=== PATIENT | female | born 1955 | race Caucasian/White ===

== ENCOUNTER 2016-10-08 08:03 | Inpatient (IN) ==
[2016-10-08] MEDS ORDERED: *HR* Midazolam HCl 2 MG/2 ML VIAL ONE (08:12)
[2016-10-08] MEDS ORDERED: *HR* FentaNYL (PF) 100 MCG/2 ML VIAL ONE (08:12)
[2016-10-08] MEDS ORDERED: *HR* Propofol 200 MG/20 ML VIAL IVP ONE (08:13)
[2016-10-08] MEDS ORDERED: Ondansetron 4 MG/2 ML VIAL ONE (08:27)
[2016-10-08] MEDS ORDERED: Dexamethasone 4 MG/ML VIAL ONE (08:27)
[2016-10-08] MEDS ORDERED: Lidocaine -MPF 2% 2 ML VIAL ONE (08:27)
--- NOTE | 2016-10-08 08:32 | Anesthesia Evaluation PreOp ---
Date of Encounter: 10/08/16 Time of Encounter: 08:30 - Past History Planned Operation: Sacralcolpopexy Cardiac History: HTN Pulmonary History: Former smoker (quit 34 years ago, smoked for 15 years) [employer] History: Denies Any Significant HX Other Medical History: GERD, Other (H/O ovarian CA S/P chemo) Anesthesia History: No Prior Anesthetic Complications, Past Anesthesia ( hysterectomy) Alcohol Use: occasionally Drug use: none Medications and Allergies Furosemide [Lasix] 40 mg PO DAILY 06/26/16 [History] Ibuprofen [Advil] 200 mg PO Q4-6H PRN 06/26/16 [History] Potassium Gluconate 75 mg PO DAILY 06/26/16 [History] Allergies codeine Allergy (Verified 07/20/16 07:19) Hives patient states reaction was in 1983 - Meds/Allergy Pre-op Review Medications Reviewed: Yes Allergies Reviewed: Yes Beta Blockers on Current Med List: No Anesthesia Results - Labs Laboratory Tests 07/10/16 10/01/16 10/01/16 08:26 08:09 08:09 WBC 6.5 Hgb 14.0 Hct 40.9 Plt Count 247 Sodium 139 Potassium 4.0 BUN 12 Creatinine 0.77 - Imaging EKG: report reviewed (06/15/2016 SR, IVCD, LAFB) Anesthesia Exam O2 Sat Height 1.6 m Height 1.6 m Weight 86.183 kg Weight 86.183 kg O2 Sat by Pulse Oximetry 98 Vital Signs Temp Pulse Resp BP Pulse Ox 97.6 F 75 18 122/71 98 10/08/16 08:27 10/08/16 08:27 10/08/16 08:27 10/08/16 08:27 10/08/16 08:27 Height: 5'3'' Weight: 190 lbs NPO (# of Hours): 8 Pain Scale: 0 Pain Scale Used: Numeric (1 - 10) - HEENT Pupil (Motor): EOMI Mallampati: II Teeth: Normal Denture Type: Upper: Partial Oral Opening: Greater than 3 - [employer] LOC: Oriented [employer] Motor: Normal RUE, Normal LUE, Normal RLE, Normal LLE, Normal Face [employer] Sensory: Normal: RUE, LUE, RLE, LLE, Face - Cardiac Rhythm: Regular Murmur: None - Pulmonary Breath Sounds: bilateral Clear Respiratory Effort: Symmetrical Anesthesia Assess/Plan ASA Score: 2 Modified [place] Scale for Level of Consciousness: Cooperative, oriented, and tranquil Anesthetic Plan: General Monitoring Plan: Standard Monitors Recovery Plan: PACU
[2016-10-08] MEDS ORDERED: Scopolamine Patch 1.5 MG PATCH.TD72 TD ONE (08:52)
[2016-10-08] MEDS ORDERED: Ringers Solution, Lactated 1,000 ML IVC SCH (09:00)
[2016-10-08] MEDS ORDERED: CeFAZolin Pre 2,000 MG/100 ML 2,000 MG/100 ML BAG IVPB ONE (09:07)
--- NOTE | 2016-10-08 09:14 | History & Physical Report ---
Date of Encounter: 10/08/16 Time of Encounter: 09:13 24 Hour HP Update - Instructions Instructions: If the History and Physical is less than 30 days old and was completed prior to A.M. admission and or procedure and has NOT been updated on calendar day of procedure please complete this update prior to performing procedure. - Update Patient reports changes in Medical Condition: No Changes in assessment/condition: No Changes in Medication: No Preop tests/diagnostics Reviewed: Yes Surgery Remains Indicated: Yes Consent for Planned Operative Procedure(s) Verified: Yes - Pre-Operative Checklist Preoperative Checklist Indicated: Yes Prophylactic Antibiotic Ordered: Yes Home Medications Include Beta Erick: No Beta Erick Taken Today (Day of Surgery): No Beta Erick Taken Yesterday (Day Prior to Surgery): No Is VTE Prophylaxis Indicated?: Yes
[2016-10-08] MEDS ORDERED: Lidocaine/EPI 1:100k 1% 20 ML VIAL ONE ×2 (09:34→12:41)
[2016-10-08] MEDS ORDERED: Bupivacaine/EPI 1:200k 0.25%PF 30 ML VIAL ONE (09:34)
[2016-10-08] MEDS ORDERED: *HR* Phenylephrine 10 MG/ML VIAL ONE (11:06)
[2016-10-08] MEDS ORDERED: Ondansetron 4 MG/2 ML VIAL IVP ONE (11:28)
[2016-10-08] MEDS ORDERED: *HR* Morphine 2 MG/ML SYRINGE IVP PRN (11:28)
[2016-10-08] MEDS ORDERED: *HR* HYDROmorphone 2 MG/ML SYRINGE ONE (11:36)
--- NOTE | 2016-10-08 14:50 | Anesthesia Evaluation Post Op ---
Date of Encounter: 10/08/16 Time of Encounter: 14:29 - Vital Signs Vital Signs: vss - Lungs Lungs: Clear Ascult./Percussion - Airway Airway: Non-obstructed - Cardiovascular Regular Rate - Mental Status Mental Status: Asleep with brisk response to light stimulation - Pain Pain Scale used: Jess (Faces) - Nausea Vomiting Nausea Vomiting: Not Present - Hydration Hydration: Ice chips - Discharge PostOp Status: Transfer Patient to floor
--- NOTE | 2016-10-08 15:46 | OB/GYN Procedure Note ---
[employer]PER[employer]: Procedure - Diagnosis Date of procedure: 10/08/16 Pre-op diagnosis: Pelvic prolapse, stress urinary incontinence Post-op diagnosis: other (Dense intra-abdominal adhesions) - Procedure Procedure: Tension-free vaginal taping, anterior repair, laparotomy with lysis of adhe Surgeon: Michael Negron (Dr. Mcclendon was intraoperative consult Dr. Hopkins) Manager Of Software: Kim Bentley Anesthesia Type: General Estimated blood loss (cc): 100 Fluids: crystalloid Procedure Complications: Dense pelvic and he adhesions Disposition: PACU Findings: Dense pelvic adhesions obliterating the posterior cul-de-sac Narrative: Patient is a 61-year-old female with progressively worsening pelvic prolapse. She has pressure symptoms as well as stress urinary incontinence. I discussed with patient DECISION was made to proceed with TVT and laparotomy with planned sacrocolpopexy. Patient is aware operative risks and some appropriate consent. Description procedure: Patient was taken operating room where general anesthesia was mentioned she was prepped and draped in a sterile fashion in the dorsal lithotomy position. 30 mL of dilute local was injected behind the symphysis pubis and left and right side 30 mL of local was injected along the anterior vaginal wall below the mucosa from the mid urethral portion of the anterior vaginal wall to the symphysis pubis. A small incision was made in the mid urethral portion anterior vaginal wall. Form obtained in the vagina this was in the patient's bladder towards her left side with the catheter guide helping to displace the bladder the TVT needle was placed through the suburethral incision along the anterior vaginal wall and very near the symphysis pubis and out through the right lower abdominal incision. Patient's bladder was then displaced to the other side and again the TVT needle was passed through the suburethral incision along the anterior vaginal wall and out through the lower abdominal incision and the left. Catheter was removed and cystoscopy was performed. There is no evidence of bladder trauma with strong ureteral jets bilaterally. A Pfannenstiel skin incision was made and this was sharply taken down to the fascia. Fascial incision was sized to midline and extended bilaterally. Once entering the fascia was delivered into the peritoneum. There were dense adhesions involving bowel and anterior abdominal wall as well as between omentum and bowel and the vaginal cuff. At the time the TVT needle was placed and was questionable stool. Dense adhesions of the septum very difficult, but dissection therefore consulted Dr. Hopkins who helped with adhesion lysis. Initially we were able to visualize the pelvis and feel where the TVT needles had passed. Vital to dissect along the path of the entire right-sided TVT needle is entered into the abdomen and there was no evidence of bowel trauma. The left TVT needle seemed to stay extra peritoneal and again there is no evidence of bowel trauma. I did decide that I was not going to be able to dissect safely down to the sacrum or get any significant dissection anterior posterior vagina therefore decision was made not to proceed with the sacrocolpopexy. I did speak with the patient's family and they agreed that patient would desire made to proceed with anterior and possible posterior repair if needed. This point the fascia was closed with a looped PDS and skin edges reapproximated with lamont. It was a third-degree cystocele minimal rectocele. Immediate inverted T-shaped incision on the anterior vaginal wall and injected the vaginal mucosa with 1% lidocaine with epinephrine. I dissected out the vesicovaginal fascia on each side. Using 2-0 Vicryl were put several interrupted sutures on the anterior vaginal wall closing the fascia back together. Excised excess vaginal mucosa. Skin edges were approximated with 3-0 Vicryl. Did not fit the TVT mesh down around a 9 Hegar dilator and the sheath was removed and the incisions were closed. Splints cystoscopy was again performed with again no evidence of bladder trauma and strong ureteral jets bilaterally. This point all sponge needle and instrument counts are correct patient was taken recovery in good condition.
[2016-10-08] MEDS ORDERED: Naloxone 0.4 MG/ML INJ IVP PRN (15:59)
[2016-10-08] MEDS: *HR* HYDROmorphone 2 MG/ML SYRINGE IVP PRN ×2 (16:15→20:00)
[2016-10-08] MEDS: Ringers Solution, Lactated 1,000 ML IVC SCH (20:03)
[2016-10-08] MEDS ORDERED: Furosemide 40 MG TABLET PO SCH (21:00)
[2016-10-09] MEDS: *HR* HYDROmorphone 2 MG/ML SYRINGE IVP PRN ×5 (00:17→19:53)
[2016-10-09] MEDS: Ringers Solution, Lactated 1,000 ML IVC SCH ×3 (05:14→21:31)
[2016-10-09] MEDS ORDERED: Ondansetron 4 MG/2 ML VIAL IVP ONE (05:50)
[2016-10-09] MEDS ORDERED: Ondansetron 4 MG/2 ML VIAL ONE ×2 (05:52→15:25)
[2016-10-09 06:52] LABS: Hematocrit 40.6 % (35.3-44.9); Hemoglobin 13.5 g/dL (11.5-15.4); Mean Corpuscular HGB Conc 33.3 g/dL (31.6-35.5); Mean Corpuscular Hemoglobin 32.8 pg (28.0-33.3); Mean Corpuscular Volume 98.5 fL (83.0-100.0); Mean Platelet Volume 9.6 fL (9.4-12.4); Platelet Count 237 K/mcL (140-400); Red Blood Count 4.12 M/mcL (3.82-4.97)
[2016-10-09 07:51] LABS: Lymphocytes # 1.6 K/mcL (0.6-4.6)
[2016-10-09 07:53] LABS: Platelet Estimate Normal (Normal); Reactive Lymphocytes Present (Not Present)
[2016-10-09] MEDS ORDERED: POTASSIUM GLUCONATE PO SCH (09:00)
--- NOTE | 2016-10-09 13:13 | OB/GYN Progress Note ---
Date of Encounter: 10/09/16 Time of Encounter: 13:11 - Assessment and Plan (1) Pelvic prolapse Current Visit: Yes Status: Acute Pt POD #1 s/p exp lap with DARLENE, ant repair and TVT. Pt overall doing ok, however she does have some nausea and no flatus. + BM. Pt also with low grade temp. Will cont. post op care. Qualifiers: Prolapse type: other female genital prolapse Qualified Code(s): N81.89 - Other female genital prolapse; N81.8 - Other female genital prolapse Subjective - Subjective Principal diagnosis: s/p exp lap., with DARLENE, ant repair and TVT Interval history: Pt c/o nausea and not much appetite. She c/o low abdominal pain. No fever or chills. Hasn't ambulated much yet. Objective - Vital Signs Vital Signs: Vital Signs Temp Pulse Resp BP Pulse Ox 10/09/16 12:00 18 10/09/16 11:54 100.3 F H 96 18 118/72 92 L 10/09/16 04:00 98.4 F 85 22 118/62 91 L 10/08/16 23:45 100.1 F H 88 20 124/75 94 L 10/08/16 20:00 98.2 F 89 20 125/73 94 L 10/08/16 18:15 99.1 F 85 16 113/63 10/08/16 17:15 98.2 F 84 16 115/65 98 10/08/16 16:15 97.8 F 84 16 130/74 98 10/08/16 15:45 97.5 F L 81 16 129/70 98 10/08/16 15:15 97.6 F 81 14 139/79 98 10/08/16 14:48 99.8 F H 80 16 155/94 97 10/08/16 14:38 99.8 F H 79 16 157/80 96 10/08/16 14:28 83 14 164/87 96 10/08/16 14:18 89 16 169/88 98 10/08/16 14:08 97.0 F L 86 20 151/92 97 Intake and Output 10/08/16 10/09/16 10/09/16 23:59 07:59 15:59 Intake Total 950 / 950 120 / 120 Output Total 475 / 475 250 / 250 Balance -475 / -475 700 / 700 120 / 120 Intake: IV Fluids 950 / 950 Lactated Ringers 1,000 ML 950 / 950 @ 125 mls/hr IVC .Q8H [facility] Rx#:[id number] Oral 120 / 120 Output: Urine 250 / 250 Urethral (Lay) 250 / 250 Catheter 475 / 475 Other: Weight 86 kg Patient Weight 10/09/16 23:59 Weight 86 kg - Exam Auscultation: bilateral: normal Abdomen: Present: soft, other (No rebound or guarding) - Labs Labs: Abnormal lab results WBC 13.6 K/mcL (4.3-11.1) H 10/09/16 06:36 Neutrophils # 12.0 K/mcL (1.6-8.9) H 10/09/16 06:36 Reactive Lymphocytes Present (Not Present) A 10/09/16 06:36
[2016-10-09] MEDS ORDERED: Furosemide 40 MG TABLET PO SCH (14:00)
[2016-10-09] MEDS ORDERED: Furosemide 20 MG TABLET PO SCH (14:45)
[2016-10-09] MEDS: Ondansetron 4 MG/2 ML VIAL IVP PRN (15:37)
[2016-10-09] MEDS ORDERED: Furosemide 20 MG/2 ML VIAL IVP ONE ×2 (20:01→21:08)
--- NOTE | 2016-10-09 20:46 | OB/GYN Progress Note ---
Date of Encounter: 10/09/16 Time of Encounter: 20:43 - Assessment and Plan (1) Pelvic prolapse Current Visit: Yes Status: Acute Pt POD #1 s/p exp lap with DARLENE, ant repair and TVT. Pt overall doing ok, however she does have some nausea and no flatus. + BM. Pt also with low grade temp. Will cont. post op care. Concerned over pt's continued abdominal pain. She has continued low grade temp and isn't really progressing very well. Will check stat CT of abd and pelvis to r/o bowel perforation as her surgery was quite involved with extnesive DARLENE. Will order stat CBC and Chem 7. Qualifiers: Prolapse type: other female genital prolapse Qualified Code(s): N81.89 - Other female genital prolapse; N81.8 - Other female genital prolapse (2) Postoperative tachycardia and tachypnea Current Visit: Yes Status: Acute Pt typically takes lasix 40 mg daily. She has not taken her po lasix today b/c of nausea. Will check cxr. Her lungs are clear. May need IV Lasix Subjective - Subjective Principal diagnosis: s/p ant repair and TVT, exploratory laparotomy with extensive DARLENE Interval history: Called to see pt for persistent abdominal pain and nausea. She is also having worsening tachypnea and hypoxia. Her o2 sat was 78% on room air. Her UOP has only been 300 cc. Objective - Vital Signs Vital Signs: Vital Signs Temp Pulse Pulse Resp BP Pulse Ox 10/09/16 20:15 99 F 106 26 91 L 10/09/16 20:00 99 F 108 28 132/71 84 L 10/09/16 16:31 90 10/09/16 16:00 99.1 F 90 18 129/66 91 L 10/09/16 12:00 18 10/09/16 11:54 100.3 F H 96 18 118/72 92 L 10/09/16 04:00 98.4 F 85 22 118/62 91 L 10/08/16 23:45 100.1 F H 88 20 124/75 94 L Intake and Output 10/09/16 10/09/16 10/09/16 07:59 15:59 23:59 Intake Total 950 / 950 1120 / 1120 360 / 360 Output Total 250 / 250 300 / 300 Balance 700 / 700 1120 / 1120 60 / 60 Intake: IV Fluids 950 / 950 1000 / 1000 Lactated Ringers 1,000 ML 950 / 950 1000 / 1000 @ 125 mls/hr IVC .Q8H [facility] Rx#:[id number] Oral 120 / 120 360 / 360 Output: Urine 250 / 250 300 / 300 Urethral (Lay) 250 / 250 Other: Weight 86 kg Patient Weight 10/09/16 23:59 Weight 86 kg - Exam Auscultation: bilateral: normal Abdomen: Present: tenderness (+BS, tender throughout, incision CDWA with ecchymosis) - Labs Labs: Abnormal lab results WBC 13.6 K/mcL (4.3-11.1) H 10/09/16 06:36 Neutrophils # 12.0 K/mcL (1.6-8.9) H 10/09/16 06:36 Reactive Lymphocytes Present (Not Present) A 10/09/16 06:36
[2016-10-09 20:55] LABS: Hematocrit 38.4 % (35.3-44.9); Hemoglobin 13.1 g/dL (11.5-15.4); Immature Platelets 2.7 % (1.1-6.1); Mean Corpuscular HGB Conc 34.1 g/dL (31.6-35.5); Mean Corpuscular Hemoglobin 33.5 pg (28.0-33.3); Mean Corpuscular Volume 98.2 fL (83.0-100.0); Mean Platelet Volume 9.4 fL (9.4-12.4); Platelet Count 207 K/mcL (140-400); Red Blood Count 3.91 M/mcL (3.82-4.97); Red Cell Distribution Width 13.5 % (11.5-14.5)
[2016-10-09 21:07] LABS: BUN/Creatinine Ratio 17 (6-26); Blood Urea Nitrogen 12 mg/dL (7-20); Calcium 8.8 mg/dL (8.6-10.8); Carbon Dioxide 25 mEq/L (19-29); Chloride 102 mEq/L (98-109); Glucose 150 mg/dL (70-99); Osmolality,Calculated 283 (280-300); Potassium 3.8 mEq/L (3.5-4.5); Sodium 135 mEq/L (136-145); eGFR For African Americans > 60 (> 60); eGFR For Non-African Americans > 60 (> 60)
[2016-10-09 21:13] LABS: Lymphocytes # 0.5 K/mcL (0.6-4.6); Monocytes # 0.8 K/mcL (0.0-1.3); Neutrophils # 12.1 K/mcL (1.6-8.9)
[2016-10-09] MEDS: Vancomycin 1,500 MG in D5% in Water 250 ML IVPB SCH (21:35)
[2016-10-10] MEDS: Piperacillin/Tazobactam 3.375 GM in D5% in Water (Mini-Bag+) 100 ML IVPB SCH ×3 (00:09→16:09)
--- NOTE | 2016-10-10 00:31 | OB/GYN Progress Note ---
Date of Encounter: 10/10/16 Time of Encounter: 00:29 - Assessment and Plan (1) Pelvic prolapse Current Visit: Yes Status: Acute Pt POD #1 s/p exp lap with PONCHO, ant repair and TVT. Pt overall doing ok, however she does have some nausea and no flatus. + BM. Pt also with low grade temp. Will cont. post op care. Concerned over pt's continued abdominal pain. She has continued low grade temp and isn't really progressing very well. Will check stat CT of abd and pelvis to r/o bowel perforation as her surgery was quite involved with extnesive PONCHO. Will order stat CBC and Chem 7. Qualifiers: Prolapse type: other female genital prolapse Qualified Code(s): N81.89 - Other female genital prolapse; N81.8 - Other female genital prolapse (2) Postoperative tachycardia and tachypnea Current Visit: Yes Status: Acute Pt typically takes lasix 40 mg daily. She has not taken her po lasix today b/c of nausea. Will check cxr. Her lungs are clear. May need IV Lasix Pt has responded to Lasix, with improved urine output. She is on atb's for possible early pneumonia. (3) Postoperative generalized abdominal pain Current Visit: Yes Status: Acute Pt with nausea and no flatus. Pt now s/p CT of abd and pelvis. I discussed the results with radiology. Some free air and fluid found that could be c/w post op change. No obvious area of bowel perforation. Pt with stable WBC. Will cont. close observation. Consider repeat CT in a couple of days. Subjective - Subjective Principal diagnosis: s/p exp lap with poncho, ant repair and tvt Interval history: Pt c/o some nausea after po contrast. Requesting antacid. Resp rate is improved and pulse is less tachycardic. Objective - Vital Signs Vital Signs: Vital Signs Temp Pulse Pulse Resp BP Pulse Ox 10/09/16 23:30 98.0 F 93 20 116/72 92 L 10/09/16 23:12 99.1 F 96 20 118/65 93 L 10/09/16 22:00 98.4 F 94 20 115/68 94 L 10/09/16 21:00 98.8 F 93 22 115/67 93 L 10/09/16 20:15 99 F 106 26 91 L 10/09/16 20:00 99 F 108 28 132/71 84 L 10/09/16 16:31 90 10/09/16 16:00 99.1 F 90 18 129/66 91 L 10/09/16 12:00 18 10/09/16 11:54 100.3 F H 96 18 118/72 92 L 10/09/16 04:00 98.4 F 85 22 118/62 91 L Intake and Output 10/09/16 10/09/16 10/10/16 15:59 23:59 07:59 Intake Total 1120 / 1120 2235 / 2235 Output Total 920 / 920 Balance 1120 / 1120 1315 / 1315 Intake: IV Fluids 1000 / 1000 1175 / 1175 Lactated Ringers 1,000 ML 1000 / 1000 925 / 925 @ 125 mls/hr IVC .Q8H [facility] Rx#:[id number] Vancocin 1,500 MG In 250 / 250 Dextrose 5% 250 ML @ 166. 67 mls/hr IVPB Q24H [facility] Rx#:[id number] Oral 120 / 120 1060 / 1060 Output: Urine 300 / 300 Catheter 620 / 620 Other: Weight 86.4 kg Patient Weight 10/10/16 23:59 Weight 86.4 kg - Exam Auscultation: bilateral: normal Abdomen: Present: tenderness, other (pos BS) - Labs Labs: Abnormal lab results WBC 13.4 K/mcL (4.3-11.1) H 10/09/16 20:47 MCH 33.5 pg (28.0-33.3) H 10/09/16 20:47 Band Neutrophils % 12.0 % (0-4) H 10/09/16 20:47 Neutrophils # 12.1 K/mcL (1.6-8.9) H 10/09/16 20:47 Lymphocytes # 0.5 K/mcL (0.6-4.6) L 10/09/16 20:47 Reactive Lymphocytes Present (Not Present) A 10/09/16 06:36 Sodium 135 mEq/L (136-145) L 10/09/16 20:47 Glucose 150 mg/dL (70-99) H 10/09/16 20:47
[2016-10-10] MEDS: *HR* HYDROmorphone 2 MG/ML SYRINGE IVP PRN ×2 (01:44→08:38)
[2016-10-10] MEDS: Ondansetron 4 MG/2 ML VIAL IVP PRN ×2 (01:49→16:08)
[2016-10-10 04:02] LABS: Hematocrit 36.3 % (35.3-44.9); Hemoglobin 12.5 g/dL (11.5-15.4); Immature Platelets 3.1 % (1.1-6.1); Mean Corpuscular HGB Conc 34.4 g/dL (31.6-35.5); Mean Corpuscular Hemoglobin 33.4 pg (28.0-33.3); Mean Corpuscular Volume 97.1 fL (83.0-100.0); Mean Platelet Volume 9.6 fL (9.4-12.4); Platelet Count 194 K/mcL (140-400); Red Blood Count 3.74 M/mcL (3.82-4.97); Red Cell Distribution Width 13.4 % (11.5-14.5)
[2016-10-10 04:25] LABS: Lymphocytes # 1.1 K/mcL (0.6-4.6); Monocytes # 1.1 K/mcL (0.0-1.3); Neutrophils # 11.2 K/mcL (1.6-8.9)
[2016-10-10 04:26] LABS: Anisocytosis 1+ (Not Present); Dohle Bodies Present (Not Present); Platelet Estimate Normal (Normal); Polychromasia 1+ (Not Present); Reactive Lymphocytes Present (Not Present)
[2016-10-10] MEDS: *HR* OxyCODONE/APAP 5/325 TABLET PO PRN ×2 (10:35→14:44)
--- NOTE | 2016-10-10 14:41 | OB/GYN Progress Note ---
Date of Encounter: 10/10/16 Time of Encounter: 14:39 - Assessment and Plan (1) Pelvic prolapse Current Visit: Yes Status: Acute Pt POD #1 s/p exp lap with DARLENE, ant repair and TVT. Pt overall doing ok, however she does have some nausea and no flatus. + BM. Pt also with low grade temp. Will cont. post op care. Concerned over pt's continued abdominal pain. She has continued low grade temp and isn't really progressing very well. Will check stat CT of abd and pelvis to r/o bowel perforation as her surgery was quite involved with extnesive DARLENE. Will order stat CBC and Chem 7. Qualifiers: Prolapse type: other female genital prolapse Qualified Code(s): N81.89 - Other female genital prolapse; N81.8 - Other female genital prolapse (2) Postoperative tachycardia and tachypnea Current Visit: Yes Status: Acute Pt typically takes lasix 40 mg daily. She has not taken her po lasix today b/c of nausea. Will check cxr. Her lungs are clear. May need IV Lasix Pt has responded to Lasix, with improved urine output. She is on atb's for possible early pneumonia. Pt's oxygen sats are now impoved to 95 on 2 l oxygen NC, her respirtions are less labored. (3) Postoperative generalized abdominal pain Current Visit: Yes Status: Acute Pt with nausea and no flatus. Pt now s/p CT of abd and pelvis. I discussed the results with radiology. Some free air and fluid found that could be c/w post op change. No obvious area of bowel perforation. Pt with stable WBC. Will cont. close observation. Consider repeat CT in a couple of days. Subjective - Subjective Principal diagnosis: s/p surgery with possible early pneumonia and ileus Interval history: Pt states "starting to feel a little better". Has been drinking more and has eaten a little. Active BS , still no flatus. Is weak when she ambulates. 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 Objective - Vital Signs Vital Signs: Vital Signs Temp Pulse Pulse Resp BP Pulse Ox 10/10/16 14:00 92 94 L 10/10/16 12:00 98.1 F 95 20 106/60 92 L 10/10/16 11:55 98.1 F 95 95 20 106/60 92 L 10/10/16 08:50 99.8 F H 94 22 117/70 94 L 10/10/16 08:00 94 18 10/10/16 03:28 98.5 F 87 22 117/69 94 L 10/09/16 23:30 98.0 F 93 20 116/72 92 L 10/09/16 23:12 99.1 F 96 20 118/65 93 L 10/09/16 22:00 98.4 F 94 20 115/68 94 L 10/09/16 21:00 98.8 F 93 22 115/67 93 L 10/09/16 20:15 99 F 106 26 91 L 10/09/16 20:00 99 F 108 28 132/71 84 L 10/09/16 16:31 90 10/09/16 16:00 99.1 F 90 18 129/66 91 L Intake and Output 10/09/16 10/10/16 10/10/16 23:59 07:59 15:59 Intake Total 2235 / 2235 100 / 100 400 / 400 Output Total 920 / 920 250 / 250 550 / 550 Balance 1315 / 1315 -150 / -150 -150 / -150 Intake: IV Fluids 1175 / 1175 100 / 100 Lactated Ringers 1,000 ML 925 / 925 @ 125 mls/hr IVC .Q8H [facility] Rx#:[id number] Zosyn 3.375 GM In 100 / 100 Dextrose 5% (Minibag+) 100 ML 100 ML @ 25 mls/hr IVPB Q8HR [facility] Rx#: [id number] Vancocin 1,500 MG In 250 / 250 Dextrose 5% 250 ML @ 166. 67 mls/hr IVPB Q24H [facility] Rx#:[id number] Oral 1060 / 1060 400 / 400 Output: Urine 300 / 300 Catheter 620 / 620 250 / 250 550 / 550 Other: Weight 86.4 kg Patient Weight 10/10/16 23:59 Weight 86.4 kg - Exam Auscultation: bilateral: normal Abdomen: Present: soft, tenderness (In bilat LQ, + BS, incisions cdwa) - Labs Labs: Abnormal lab results WBC 13.3 K/mcL (4.3-11.1) H 10/10/16 03:39 RBC 3.74 M/mcL (3.82-4.97) L 10/10/16 03:39 MCH 33.4 pg (28.0-33.3) H 10/10/16 03:39 Neutrophils # 11.2 K/mcL (1.6-8.9) H 10/10/16 03:39 Reactive Lymphocytes Present (Not Present) A 10/10/16 03:39 Dohle Bodies Present (Not Present) A 10/10/16 03:39 Polychromasia 1+ (Not Present) A 10/10/16 03:39 Anisocytosis 1+ (Not Present) A 10/10/16 03:39 Sodium 135 mEq/L (136-145) L 10/09/16 20:47 Glucose 150 mg/dL (70-99) H 10/09/16 20:47
[2016-10-10] MEDS ORDERED: Simethicone 80 MG TAB.CHEW PO PRN (14:51)
[2016-10-10] MEDS: Ringers Solution, Lactated 1,000 ML IVC SCH (16:08)
[2016-10-10] MEDS ORDERED: D5% in Lactated Ringers 1,000 ML IVC SCH (18:30)
--- NOTE | 2016-10-10 19:59 | OB/GYN Progress Note ---
Date of Encounter: 10/10/16 Time of Encounter: 19:57 - Assessment and Plan (1) Pelvic prolapse Current Visit: Yes Status: Acute Pt POD #1 s/p exp lap with DARLENE, ant repair and TVT. Pt overall doing ok, however she does have some nausea and no flatus. + BM. Pt also with low grade temp. Will cont. post op care. Concerned over pt's continued abdominal pain. She has continued low grade temp and isn't really progressing very well. Will check stat CT of abd and pelvis to r/o bowel perforation as her surgery was quite involved with extnesive DARLENE. Will order stat CBC and Chem 7. Qualifiers: Prolapse type: other female genital prolapse Qualified Code(s): N81.89 - Other female genital prolapse; N81.8 - Other female genital prolapse (2) Postoperative tachycardia and tachypnea Current Visit: Yes Status: Acute Pt typically takes lasix 40 mg daily. She has not taken her po lasix today b/c of nausea. Will check cxr. Her lungs are clear. May need IV Lasix Pt has responded to Lasix, with improved urine output. She is on atb's for possible early pneumonia. Pt's oxygen sats are now impoved to 95 on 2 l oxygen NC, her respirtions are less labored. (3) Postoperative generalized abdominal pain Current Visit: Yes Status: Acute Pt with nausea and no flatus. Pt now s/p CT of abd and pelvis. I discussed the results with radiology. Some free air and fluid found that could be c/w post op change. No obvious area of bowel perforation. Pt with stable WBC. Will cont. close observation. Consider repeat CT in a couple of days. (4) Hematemesis with nausea Current Visit: Yes Status: Acute Pt with likely ileus with gastritis. Pt placed NPO, will place NG and start IV Prilosec 40 mg BID and PO carafate. Will cont. close observation. Subjective - Subjective Interval history: CTSP for 500 cc of dark hematemesis. Pt now with hypoactive BS and still no flatus. Objective - Vital Signs Vital Signs: Vital Signs Temp Pulse Pulse Resp BP Pulse Ox 10/10/16 18:15 100.3 F H 93 22 126/69 93 L 10/10/16 16:00 98.7 F 92 92 22 111/65 95 10/10/16 14:00 92 94 L 10/10/16 12:00 98.1 F 95 20 106/60 92 L 10/10/16 11:55 98.1 F 95 95 20 106/60 92 L 10/10/16 08:50 99.8 F H 94 22 117/70 94 L 10/10/16 08:00 94 18 10/10/16 03:28 98.5 F 87 22 117/69 94 L 10/09/16 23:30 98.0 F 93 20 116/72 92 L 10/09/16 23:12 99.1 F 96 20 118/65 93 L 10/09/16 22:00 98.4 F 94 20 115/68 94 L 10/09/16 21:00 98.8 F 93 22 115/67 93 L 10/09/16 20:15 99 F 106 26 91 L 10/09/16 20:00 99 F 108 28 132/71 84 L Intake and Output 10/10/16 10/10/16 10/10/16 07:59 15:59 23:59 Intake Total 100 / 100 500 / 500 1000 / 1000 Output Total 250 / 250 550 / 550 865 / 865 Balance -150 / -150 -50 / -50 135 / 135 Intake: IV Fluids 100 / 100 100 / 100 1000 / 1000 Lactated Ringers 1,000 ML 1000 / 1000 @ 125 mls/hr IVC .Q8H [facility] Rx#:[id number] Zosyn 3.375 GM In 100 / 100 100 / 100 Dextrose 5% (Minibag+) 100 ML 100 ML @ 25 mls/hr IVPB Q8HR [facility] Rx#: [id number] Oral 400 / 400 Output: Emesis 515 / 515 Catheter 250 / 250 550 / 550 350 / 350 Other: Weight 86.4 kg Patient Weight 10/10/16 23:59 Weight 86.4 kg - Exam Auscultation: bilateral: normal Abdomen: Present: soft (Hypoactive BS, diffuse mild tenderness, incison CDWA) - Labs Labs: Abnormal lab results WBC 13.3 K/mcL (4.3-11.1) H 10/10/16 03:39 RBC 3.74 M/mcL (3.82-4.97) L 10/10/16 03:39 MCH 33.4 pg (28.0-33.3) H 10/10/16 03:39 Neutrophils # 11.2 K/mcL (1.6-8.9) H 10/10/16 03:39 Reactive Lymphocytes Present (Not Present) A 10/10/16 03:39 Dohle Bodies Present (Not Present) A 10/10/16 03:39 Polychromasia 1+ (Not Present) A 10/10/16 03:39 Anisocytosis 1+ (Not Present) A 10/10/16 03:39 Sodium 135 mEq/L (136-145) L 10/09/16 20:47 Glucose 150 mg/dL (70-99) H 10/09/16 20:47
[2016-10-10] MEDS ORDERED: *HR* Promethazine 25 MG/ML VIAL IVP PRN (20:01)
[2016-10-10 20:09] LABS: Basophils % 0.2 %; Hematocrit 35.1 % (35.3-44.9); Hemoglobin 12.7 g/dL (11.5-15.4); Immature Granulocytes % 0.5 % (0-4); Immature Platelets 3.2 % (1.1-6.1); Lymphocytes # 0.8 K/mcL (0.6-4.6); Lymphocytes % 5.2 %; Mean Corpuscular HGB Conc 36.2 g/dL (31.6-35.5); Mean Corpuscular Hemoglobin 33.8 pg (28.0-33.3); Mean Corpuscular Volume 93.4 fL (83.0-100.0); Mean Platelet Volume 9.4 fL (9.4-12.4); Monocytes % 6.6 %; Neutrophils # 12.7 K/mcL (1.6-8.9); Platelet Count 187 K/mcL (140-400); Red Blood Count 3.76 M/mcL (3.82-4.97); Red Cell Distribution Width 13.2 % (11.5-14.5); Segmented Neutrophils % 87.5 %
[2016-10-10 20:20] LABS: BUN/Creatinine Ratio 15 (6-26); Blood Urea Nitrogen 10 mg/dL (7-20); Calcium 8.4 mg/dL (8.6-10.8); Carbon Dioxide 29 mEq/L (19-29); Chloride 95 mEq/L (98-109); Glucose 187 mg/dL (70-99); Osmolality,Calculated 280 (280-300); Potassium 3.2 mEq/L (3.5-4.5); Sodium 133 mEq/L (136-145); eGFR For African Americans > 60 (> 60); eGFR For Non-African Americans > 60 (> 60)
[2016-10-10 20:33] LABS: Platelet Estimate Normal (Normal)
[2016-10-10] MEDS ORDERED: Pantoprazole 40 MG VIAL IVP SCH (22:00)
[2016-10-11] MEDS: Piperacillin/Tazobactam 3.375 GM in D5% in Water (Mini-Bag+) 100 ML IVPB SCH ×3 (00:44→23:55)
[2016-10-11] MEDS: *HR* HYDROmorphone 2 MG/ML SYRINGE IVP PRN ×2 (01:04→05:19)
[2016-10-11 05:24] LABS: Basophils % 0.1 %; Immature Granulocytes % 0.5 % (0-4); Immature Platelets 3.9 % (1.1-6.1); Lymphocytes # 0.7 K/mcL (0.6-4.6); Lymphocytes % 4.9 %; Mean Corpuscular HGB Conc 35.2 g/dL (31.6-35.5); Mean Corpuscular Hemoglobin 33.3 pg (28.0-33.3); Mean Corpuscular Volume 94.6 fL (83.0-100.0); Mean Platelet Volume 9.5 fL (9.4-12.4); Monocytes # 0.7 K/mcL (0.0-1.3); Monocytes % 5.2 %; Neutrophils # 11.9 K/mcL (1.6-8.9); Platelet Count 234 K/mcL (140-400); Red Blood Count 4.44 M/mcL (3.82-4.97); Red Cell Distribution Width 13.1 % (11.5-14.5); Segmented Neutrophils % 89.3 %
[2016-10-11 05:26] LABS: Hemoglobin 14.8 g/dL (11.5-15.4)
[2016-10-11 05:34] LABS: BUN/Creatinine Ratio 15 (6-26); Blood Urea Nitrogen 12 mg/dL (7-20); Calcium 8.6 mg/dL (8.6-10.8); Carbon Dioxide 27 mEq/L (19-29); Chloride 96 mEq/L (98-109); Glucose 199 mg/dL (70-99); Osmolality,Calculated 283 (280-300); Potassium 3.7 mEq/L (3.5-4.5); Sodium 134 mEq/L (136-145); eGFR For African Americans > 60 (> 60); eGFR For Non-African Americans > 60 (> 60)
[2016-10-11 05:54] LABS: Platelet Estimate Normal (Normal)
[2016-10-11 05:55] LABS: Reactive Lymphocytes Present (Not Present)
--- NOTE | 2016-10-11 07:41 | OB/GYN Progress Note ---
Date of Encounter: 10/11/16 Time of Encounter: 07:39 - Assessment and Plan (1) Pelvic prolapse Current Visit: Yes Status: Acute Pt POD #1 s/p exp lap with PONCHO, ant repair and TVT. Pt overall doing ok, however she does have some nausea and no flatus. + BM. Pt also with low grade temp. Will cont. post op care. Concerned over pt's continued abdominal pain. She has continued low grade temp and isn't really progressing very well. Will check stat CT of abd and pelvis to r/o bowel perforation as her surgery was quite involved with extnesive PONCHO. Will order stat CBC and Chem 7. Qualifiers: Prolapse type: other female genital prolapse Qualified Code(s): N81.89 - Other female genital prolapse; N81.8 - Other female genital prolapse (2) Postoperative tachycardia and tachypnea Current Visit: Yes Status: Acute Pt typically takes lasix 40 mg daily. She has not taken her po lasix today b/c of nausea. Will check cxr. Her lungs are clear. May need IV Lasix Pt has responded to Lasix, with improved urine output. She is on atb's for possible early pneumonia. Pt's oxygen sats are now impoved to 95 on 2 l oxygen NC, her respirtions are less labored. These problems are currently stable (3) Postoperative generalized abdominal pain Current Visit: Yes Status: Acute Pt with nausea and no flatus. Pt now s/p CT of abd and pelvis. I discussed the results with radiology. Some free air and fluid found that could be c/w post op change. No obvious area of bowel perforation. Pt with stable WBC. Will cont. close observation. Consider repeat CT in a couple of days. (4) Hematemesis with nausea Current Visit: Yes Status: Acute Pt with likely ileus with gastritis. Pt placed NPO, will place NG and start IV Prilosec 40 mg BID and PO carafate. Will cont. close observation. NG tube in place, pt with perforated viscus, will proceed to OR. Cont. Prilosec and carafate. (5) Perforated abdominal viscus Current Visit: Yes Status: Acute Pt now with evidence of perforated viscus with stool from incision. Pt aware of seriousness of situation, fortunately pt without evidence of sepsis at this point with stable vital signs and labs. D/w Dr. Hopkins and will proceed to OR for exploratory laparotomy, repair of perforated viscus, possible colostomy and TVT removal. Will obtain consent. Subjective - Subjective Principal diagnosis: s/p exp lap with poncho, ant repair and TVT, perforated viscus Interval history: As per above notes, pt now with hematemesis with continued NG drainage. Pt is alert and oriented with good pain control. She does now have stool from incision. Objective - Vital Signs Vital Signs: Vital Signs Temp Pulse Pulse Resp BP Pulse Ox 10/11/16 06:55 98.3 F 98 16 129/79 97 10/11/16 04:45 98.1 F 100 18 133/84 92 L 10/10/16 23:55 98.7 F 93 20 131/81 95 10/10/16 21:15 98.5 F 97 20 127/80 95 10/10/16 19:10 99.0 F 97 24 127/73 94 L 10/10/16 18:15 100.3 F H 93 22 126/69 93 L 10/10/16 16:00 98.7 F 92 92 22 111/65 95 10/10/16 14:00 92 94 L 10/10/16 12:00 98.1 F 95 20 106/60 92 L 10/10/16 11:55 98.1 F 95 95 20 106/60 92 L 10/10/16 08:50 99.8 F H 94 22 117/70 94 L 10/10/16 08:00 94 18 Intake and Output 10/10/16 10/10/16 10/11/16 15:59 23:59 07:59 Intake Total 500 / 500 1100 / 1100 2274 / 2274 Output Total 550 / 550 865 / 865 650 / 650 Balance -50 / -50 235 / 235 1624 / 1624 Intake: IV Fluids 100 / 100 1100 / 1100 200 / 200 Lactated Ringers 1,000 ML 1000 / 1000 @ 125 mls/hr IVC .Q8H [facility] Rx#:[id number] Zosyn 3.375 GM In 100 / 100 100 / 100 Dextrose 5% (Minibag+) 100 ML 100 ML @ 25 mls/hr IVPB Q8HR [facility] Rx#: [id number] Potassium Chloride 10 mEq 200 / 200 /100mL 10 meq In 100 ml @ 100 mls/hr IVPB Q1H [facility] Rx#:[id number] Oral 400 / 400 Intake, Autotransfusion 2073 Amount Output: Emesis 515 / 515 Catheter 550 / 550 350 / 350 400 / 400 Gastric Drainage 250 / 250 Other: Weight 85.5 kg Patient Weight 10/11/16 23:59 Weight 85.5 kg - Exam Auscultation: bilateral: normal Abdomen: Present: soft, tenderness, other (Now with stool from incision) - Labs Labs: Abnormal lab results WBC 13.3 K/mcL (4.3-11.1) H 10/11/16 05:15 Neutrophils # 11.9 K/mcL (1.6-8.9) H 10/11/16 05:15 Reactive Lymphocytes Present (Not Present) A 10/11/16 05:15 Dohle Bodies Present (Not Present) A 10/10/16 03:39 Polychromasia 1+ (Not Present) A 10/10/16 03:39 Anisocytosis 1+ (Not Present) A 10/10/16 03:39 Sodium 134 mEq/L (136-145) L 10/11/16 05:15 Chloride 96 mEq/L (98-109) L 10/11/16 05:15 Glucose 199 mg/dL (70-99) H 10/11/16 05:15
--- NOTE | 2016-10-11 07:55 | Operative Note ---
Date of procedure: 10/08/16 Pre-op diagnosis: Pelvic prolapse, stress urinary incontinence Post-op diagnosis: same Procedure: Lysis of adhesions Complications: none immediate Anesthesia: SHIVANI Surgeon: Traci Hopkins Co-Surgeon: Michael Negron Head Sulfide Operator Other: 5 Specimen: none Condition: stable Disposition: PACU Procedure in Detail: I was called into the OR for an intraoperative consult after mesh was placed by gynecology and they stated they smelled stool. Upon entry into the operating suite patient had a Pfannenstiel incision in the lower abdomen and pelvis was exposed. Patient has significant intra-abdominal adhesions. Small bowel was located within the pelvis and gently freed with sharp Metzenbaum dissection. Small bowel was evaluated and there did not appear to be any enterotomies or bowel injury. The sacral promontory fat was evident and palpation was done to the left and right palpating the iliac vessels, and the sigmoid colon was densely adherent to the left lateral anterior abdominal wall. The right blue wire from the mesh appeared to enter the abdominal cavity. The blue wire was followed after entering the pelvis and it appeared to track anteriorly to the anterior abdominal wall just above the bladder as the Lay balloon was palpated. The left blue mesh wire was seen entering the skin but did not palpate to have entered the abdominal cavity as it seemed to be all retroperitoneal. The rectum was densely adherent in the pelvis and did not appear to be near the blue wires from the mesh. There was no drainage of succus within the pelvis, there was no smell of stool present. The case was turned back over to gynecology.
--- NOTE | 2016-10-11 10:21 | Anesthesia Evaluation PreOp ---
Date of Encounter: 10/11/16 Time of Encounter: 10:20 - Past History Planned Operation: Ex Lap, Removal TVT, Bowel Repair Cardiac History: HTN Pulmonary History: Former smoker (quit 34 years ago, smoked x 15 yrs) COPY MANAGER History: Denies Any Significant HX Other Medical History: GERD, Other (Hx of ovarian CA s/p Chemo) Anesthesia History: Past Anesthesia (Hysterectomy) Alcohol Use: occasionally Drug use: none Medications and Allergies Furosemide [Lasix] 40 mg PO BID 06/26/16 [History] Ibuprofen [Advil] 200 mg PO Q4-6H PRN 06/26/16 [History] Potassium Gluconate 75 mg PO DAILY 06/26/16 [History] Allergies codeine Allergy (Verified 07/20/16 07:19) Hives patient states reaction was in 1983 - Meds/Allergy Pre-op Review Medications Reviewed: Yes Allergies Reviewed: Yes Beta Blockers on Current Med List: No Anesthesia Results - Labs 10/11/16 05:15 10/11/16 05:15 Laboratory Tests 10/11/16 05:15 Glucose 199 H Laboratory Tests 10/11/16 05:15 Est GFR (Non-Af Amer) > 60 Laboratory Results Impressions Chest X-Ray 10/09/16 20:24 IMPRESSION: Airspace opacities at the right parahilar region and left lung base, likely related to discoid atelectasis. Superimposed pneumonia is difficult to exclude. Low lung volumes. D/ / Terrence Abernathy MD / Terrence Abernathy MD Interpreting Provider: Terrence Abernathy MD X-Ray 10/11/16 05:19 IMPRESSION: Enteric tube is in good position in the stomach. D/ / Vernon Andujar MD / Vernon Andujar MD Interpreting Provider: Vernon Andujar MD Abdomen/Pelvis CT 10/11/16 07:00 IMPRESSION: 1. Since the prior examination there is progressive ascites with lower abdominal and pelvic peritoneal inflammation and anterior midline umbilical/infraumbilical 7.6 x 8.7 cm fluid collection that is suspected to relate to a mid to distal jejunal bowel perforation with progressive fluid and free air extending through a right paramedian abdominal wall defect into the right anterolateral pelvic wall. There is no formed abscess. 2. Rectal contrast was given and extends to the level of the cecum with no evidence of rectal perforation. Results of the examination were discussed with Dr. Nolen and Dr. Hopkins at the time of the interpretation on 10/11/2016 at 8:21 a.m. D/ / 10/11/2016 08:43:28 Jeremiah Mccann MD / [email or web address] Interpreting Provider: Jeremiah Mccann MD Anesthesia Exam O2 Sat Weight 85.5 kg O2 Sat by Pulse Oximetry 97 O2 Sat by Pulse Oximetry 92 O2 Sat by Pulse Oximetry 95 O2 Sat by Pulse Oximetry 95 O2 Sat by Pulse Oximetry 94 O2 Sat by Pulse Oximetry 93 O2 Sat by Pulse Oximetry 95 O2 Sat by Pulse Oximetry 94 O2 Sat by Pulse Oximetry 92 O2 Sat by Pulse Oximetry 92 Vital Signs Temp Pulse Resp BP Pulse Ox 97.6 F 75 18 122/71 98 10/08/16 08:27 10/08/16 08:27 10/08/16 08:27 10/08/16 08:27 10/08/16 08:27 Height: 5'3" Weight: 188# BMI = 33 NPO (# of Hours): MNoc - HEENT Pupil (Motor): Pupils equal, EOMI Mallampati: II Teeth: Normal Denture Type: Upper: Partial Oral Opening: Greater than 3 - COPY MANAGER LOC: Oriented COPY MANAGER Motor: Normal RUE, Normal LUE, Normal RLE, Normal LLE, Normal Face COPY MANAGER Sensory: Normal: RUE, LUE, RLE, LLE, Face - Cardiac Rhythm: Regular Murmur: None - Pulmonary Breath Sounds: bilateral Clear Respiratory Effort: Symmetrical Anesthesia Assess/Plan ASA Score: 2 (Obesity, GERD, HTN) Modified [place] Scale for Level of Consciousness: Cooperative, oriented, and tranquil Anesthetic Plan: General Monitoring Plan: Standard Monitors Recovery Plan: PACU Anes Supervising Prov Stmt: Pt seen/evaluated collaboratively with Dr. Prasad, R&B Discussed, questions answered and consent obtained. Becca Jorgensen MD
[2016-10-11] MEDS ORDERED: *HR* Rocuronium Bromide 50 MG/5 ML VIAL ONE ×2 (10:52→12:17)
[2016-10-11] MEDS ORDERED: *HR* Propofol 200 MG/20 ML VIAL IVP ONE (10:53)
[2016-10-11] MEDS ORDERED: *HR* FentaNYL (PF) 100 MCG/2 ML VIAL ONE ×2 (10:53→11:37)
[2016-10-11] MEDS ORDERED: *HR* Phenylephrine 10 MG/ML VIAL ONE (10:53)
[2016-10-11] MEDS ORDERED: EPHEDrine 50 MG/ML VIAL ONE (11:07)
[2016-10-11] MEDS ORDERED: Albumin Human 5% 25.0 GM/500 ML VIAL ONE (11:26)
[2016-10-11] MEDS ORDERED: Vancomycin 1,000 MG VIAL ONE (11:26)
[2016-10-11] MEDS ORDERED: *HR* Promethazine 25 MG/ML VIAL IVP PRN (12:47)
--- NOTE | 2016-10-11 12:47 | General Surgery Consult Note ---
<Genet Garcia - Last Filed: 10/11/16 12:54> Time of Encounter: 11:56 Assessment and Plan (1) Perforated abdominal viscus Current Visit: Yes Status: Acute proceed to OR for exploratory laparotomy, repair of perforated viscus, possible colostomy and TVT removal (2) Pelvic prolapse Current Visit: Yes Status: Acute POD #3 s/p exp lap with DARLENE, ant repair and TVT Qualifiers: Prolapse type: other female genital prolapse Qualified Code(s): N81.89 - Other female genital prolapse; N81.8 - Other female genital prolapse History of Present Illness History of present illness: Ms. Robert is a 61 yo female with worsening pelvic prolapse and stress urinary incontinence who came to the hospital for planned TVT and laparotomy with planned sacrocolpopexy on 10/08/2016. During the surgery, there was question about possible bowel injury by the TVT needle. Dr. Hopkins was consulted intraoperatively. There were very dense adhesions throughout the abdomen, which Dr. Negron and Dr. Hopkins lysed, and no apparent bowel injury was identified. Decision was made not to proceed with sacrocolpopexy due to difficulty of dissection. There was no drainage of succus in the pelvis or smell of stool per Dr. Hopkins. POD #1 CT abdomen/pelvis showed post-operative changes. POD #2 patient had nausea and no flatus, then developed hematemesis with nausea. KUB findings favored ileus over obstruction due to recent surgery. POD #3 the patient started having stool coming out of her incision. CT abdomen/ pelvis showed progressive ascites with lower abdominal and pelvic peritoneal inflammation and anterior midline umbilical/infraumbilical 7.6x8.7 cam fluid collection that is suspected to relate to a mid to distal jejunal bowel perforation with progressive fluid and free air extending through a right paramedian abdominal wall defect into the right anterolateral pelvic wall. There is no formed abscess. Rectal contrast ...extends to the level of the cecum with no evidence of perforation. Past Med Surg Social Fam HX - Past Medical History Medical history: hyperlipidemia, hypertension Psychiatric history: no psych history - Past Surgical History Surgical History: cholecystectomy, MARYANN/BSO - Social History Smoking Status: Never smoker Smokeless Tobacco Status: No Alcohol use: occasionally Drug use: none Medications and Allergies Furosemide [Lasix] 40 mg PO BID 06/26/16 [History] Ibuprofen [Advil] 200 mg PO Q4-6H PRN 06/26/16 [History] Potassium Gluconate 75 mg PO DAILY 06/26/16 [History] Allergies codeine Allergy (Verified 07/20/16 07:19) Hives patient states reaction was in 1983 Review of Systems All systems PM: A 10-system review of systems was performed and is negative for pertinent findings except as documented above in the HPI. General Surgery Exam Initial Vital Signs Temp Pulse Resp BP Pulse Ox 97.6 F 75 18 122/71 98 10/08/16 08:27 10/08/16 08:27 10/08/16 08:27 10/08/16 08:27 10/08/16 08:27 Exam Initial Vital Signs Temp Pulse Resp BP Pulse Ox 97.6 F 75 18 122/71 98 10/08/16 08:27 10/08/16 08:27 10/08/16 08:27 10/08/16 08:27 10/08/16 08:27 Results - Labs 10/11/16 05:15 10/11/16 05:15 Abnormal lab results WBC 13.3 K/mcL (4.3-11.1) H 10/11/16 05:15 Neutrophils # 11.9 K/mcL (1.6-8.9) H 10/11/16 05:15 Reactive Lymphocytes Present (Not Present) A 10/11/16 05:15 Dohle Bodies Present (Not Present) A 10/10/16 03:39 Polychromasia 1+ (Not Present) A 10/10/16 03:39 Anisocytosis 1+ (Not Present) A 10/10/16 03:39 Sodium 134 mEq/L (136-145) L 10/11/16 05:15 Chloride 96 mEq/L (98-109) L 10/11/16 05:15 Glucose 199 mg/dL (70-99) H 10/11/16 05:15 Diabetes panel 10/10/16 10/11/16 Range/Units 19:57 05:15 Sodium 133 L 134 L (136-145) mEq/L Potassium 3.2 L 3.7 (3.5-4.5) mEq/L Chloride 95 L 96 L (98-109) mEq/L Carbon Dioxide 29 27 (19-29) mEq/L BUN 10 12 (7-20) mg/dL Creatinine 0.67 0.82 (0.57-1.11) mg/dL Glucose 187 H 199 H (70-99) mg/dL Calcium 8.4 L 8.6 (8.6-10.8) mg/dL Calcium panel 10/10/16 10/11/16 Range/Units 19:57 05:15 Calcium 8.4 L 8.6 (8.6-10.8) mg/dL Pituitary panel 10/10/16 10/11/16 Range/Units 19:57 05:15 Sodium 133 L 134 L (136-145) mEq/L Potassium 3.2 L 3.7 (3.5-4.5) mEq/L Chloride 95 L 96 L (98-109) mEq/L Carbon Dioxide 29 27 (19-29) mEq/L BUN 10 12 (7-20) mg/dL Creatinine 0.67 0.82 (0.57-1.11) mg/dL Glucose 187 H 199 H (70-99) mg/dL Calcium 8.4 L 8.6 (8.6-10.8) mg/dL Adrenal panel 10/10/16 10/11/16 Range/Units 19:57 05:15 Sodium 133 L 134 L (136-145) mEq/L Potassium 3.2 L 3.7 (3.5-4.5) mEq/L Chloride 95 L 96 L (98-109) mEq/L Carbon Dioxide 29 27 (19-29) mEq/L BUN 10 12 (7-20) mg/dL Creatinine 0.67 0.82 (0.57-1.11) mg/dL Glucose 187 H 199 H (70-99) mg/dL Calcium 8.4 L 8.6 (8.6-10.8) mg/dL All other labs normal. Consult Discharge Plan - Plan Referrals: Alda Arroyo MD [Primary Care Provider] - <Traci Hopkins - Last Filed: 10/11/16 14:32> Date of Encounter: 10/11/16 Assessment and Plan (1) Leukocytosis Current Visit: Yes Status: Acute continue zosyn, vanco follow wbc Qualifiers: Leukocytosis type: unspecified Qualified Code(s): D72.829 - Elevated white blood cell count, unspecified (2) Perforated abdominal viscus Current Visit: Yes Status: Acute discussed labs, ct scan report with patient and her children that were present. Will plan exploratory laparotomy, discussed possible ostomy (ileostomy or colostomy), risks and benefits discussed with patient and she wishes to proceed discussed wound vac placement History of Present Illness Consult date: 10/11/16 Reason for consult: other (small bowel injury) Requesting physician: Michael Negron Past Med Surg Social Fam HX - Past Medical History Source: patient Medical history: cancer (ovarian) Review of Systems All systems PM: A 10-system review of systems was performed and is negative for pertinent findings except as documented above in the HPI. General Surgery Exam Initial Vital Signs Temp Pulse Resp BP Pulse Ox 97.6 F 75 18 122/71 98 10/08/16 08:27 10/08/16 08:27 10/08/16 08:27 10/08/16 08:27 10/08/16 08:27 - General physical appearance well developed, well nourished, no distress, no pain - Eyes PERRL, normal ocular movement - ENT normal mucosa, atraumatic, normocephalic - Neck trachea midline - Respiratory normal expansion, clear to auscultation - Cardiovascular Cardiovascular exam: Present: RRR - Abdomen Abdomen general surgery: Present: soft, distended, tender. Absent: guarding, rebound - Incision Incision: Present: draining, intact - Integumentary Integumentary general surgery: Present: warm and dry, no abnormal pigmentation - Neurologic Present: CN 2-12 grossly intact - Musculoskeletal Present: other (resting comfortably in bed, minimal weakness) - Psychiatric Psychiatric general surgery: Present: A&Ox3, speech is normal Exam Initial Vital Signs Temp Pulse Resp BP Pulse Ox 97.6 F 75 18 122/71 98 10/08/16 08:27 10/08/16 08:27 10/08/16 08:27 10/08/16 08:27 10/08/16 08:27 Results - Labs 10/11/16 05:15 10/11/16 05:15 Abnormal lab results WBC 13.3 K/mcL (4.3-11.1) H 10/11/16 05:15 Neutrophils # 11.9 K/mcL (1.6-8.9) H 10/11/16 05:15 Reactive Lymphocytes Present (Not Present) A 10/11/16 05:15 Dohle Bodies Present (Not Present) A 10/10/16 03:39 Polychromasia 1+ (Not Present) A 10/10/16 03:39 Anisocytosis 1+ (Not Present) A 10/10/16 03:39 Sodium 134 mEq/L (136-145) L 10/11/16 05:15 Chloride 96 mEq/L (98-109) L 10/11/16 05:15 Glucose 199 mg/dL (70-99) H 10/11/16 05:15 Diabetes panel 10/10/16 10/11/16 Range/Units 19:57 05:15 Sodium 133 L 134 L (136-145) mEq/L Potassium 3.2 L 3.7 (3.5-4.5) mEq/L Chloride 95 L 96 L (98-109) mEq/L Carbon Dioxide 29 27 (19-29) mEq/L BUN 10 12 (7-20) mg/dL Creatinine 0.67 0.82 (0.57-1.11) mg/dL Glucose 187 H 199 H (70-99) mg/dL Calcium 8.4 L 8.6 (8.6-10.8) mg/dL Calcium panel 10/10/16 10/11/16 Range/Units 19:57 05:15 Calcium 8.4 L 8.6 (8.6-10.8) mg/dL Pituitary panel 10/10/16 10/11/16 Range/Units 19:57 05:15 Sodium 133 L 134 L (136-145) mEq/L Potassium 3.2 L 3.7 (3.5-4.5) mEq/L Chloride 95 L 96 L (98-109) mEq/L Carbon Dioxide 29 27 (19-29) mEq/L BUN 10 12 (7-20) mg/dL Creatinine 0.67 0.82 (0.57-1.11) mg/dL Glucose 187 H 199 H (70-99) mg/dL Calcium 8.4 L 8.6 (8.6-10.8) mg/dL Adrenal panel 10/10/16 10/11/16 Range/Units 19:57 05:15 Sodium 133 L 134 L (136-145) mEq/L Potassium 3.2 L 3.7 (3.5-4.5) mEq/L Chloride 95 L 96 L (98-109) mEq/L Carbon Dioxide 29 27 (19-29) mEq/L BUN 10 12 (7-20) mg/dL Creatinine 0.67 0.82 (0.57-1.11) mg/dL Glucose 187 H 199 H (70-99) mg/dL Calcium 8.4 L 8.6 (8.6-10.8) mg/dL All other labs normal. - Imaging Abdominal x-ray: report reviewed, image reviewed CT scan - abdomen: report reviewed, image reviewed CT scan - pelvis: report reviewed, image reviewed - Attending Attestation I examined this patient and my medical decision-making was reviewed with the PRINTED PRODUCTS ASSEMBLER/PA/Advanced Practice Nurse/Resident Physician. I agree with the documented findings, disposition and treatment plan as described except to the extent set forth below.
[2016-10-11] MEDS ORDERED: Ondansetron 4 MG/2 ML VIAL ONE (12:48)
[2016-10-11] MEDS ORDERED: *HR* Midazolam HCl 2 MG/2 ML VIAL ONE (13:05)
[2016-10-11] MEDS ORDERED: Neostigmine Methylsulfate 3 MG/3 ML SYRINGE ONE (13:54)
--- NOTE | 2016-10-11 14:36 | Operative Note ---
Date of procedure: 10/11/16 Pre-op diagnosis: Perforated viscus Post-op diagnosis: other (Perforated small bowel) Procedure: Exploratory laparotomy, lysis of adhesions, ileocectomy, wound vac placement Complications: none immediate Anesthesia: SHIVANI Surgeon: Traci Hopkins Insurance Billing Clerk: Michael Negron Estimated blood loss (cc): 200 IV fluids (cc): 3,000 (1000 cc albumin) Urine output (cc): 200 Specimen: peritoneal fluid cultures, ileum/cecum Condition: stable Disposition: PACU Procedure in Detail: Pfannenstiel incision wound VAC: 14 cm W x 3 cm L x 5 cm D midline incision wound vac: 20 cm L x 2 cm W x 4 cm D Patient was brought to the operating suite and placed supine on the operating table. Sign in was performed and everyone was in agreement. Anesthesia was induced and patient was endotracheally intubated by anesthesia without incident. Patient already had a Lay catheter in place. The patient was placed in lithotomy position with legs in yellowfin stirrups. Anesthesia placed an NG tube. The lamont at the Pfannenstiel incision were removed. The abdomen and vaginal area was prepped and draped in the usual sterile fashion with Betadine. Timeout was performed again everyone was in agreement. A midline incision through the skin and the subcutaneous tissue was made with a 15 blade. The subcutaneous tissue was dissected down to the anterior abdominal wall linea alba fascia with the Bovie. Nadeem's are placed on either side of the fascia for retraction and the abdomen was entered bluntly. The abdomen was inspected by liquid stool being in the abdominal cavity and approximately a little over a liter of bilious succus was suctioned free from the abdomen. Small bowel was located in began by eviscerating the small bowel. There was a small bowel injury which was located and spilling succus, which was clamped with a noncrushing bowel clamp. Lysis of adhesions from small bowel to small bowel and small bowel to anterior abdominal wall adhesions were taken down with gentle blunt dissection as well as Metzenbaum scissors, and the Bovie. A Bookwalter was placed for retraction. Once the entirety of the small bowel was freed the small bowel was run from the ligament of Treitz down to the terminal ileum. Another noncrushing bowel clamp was placed on the distal aspect of the small bowel injury preventing further leakage. The area of small bowel injury was approximately a foot from the ileocecal valve and the terminal ileum was and had many adhesions to itself. The cecum and right colon was taken off the right lateral abdominal wall beginning at the white line of Toldt at the cecum ascending proximally, with the Bovie. Once the right colon and cecum was elevated into the wound and area of the small bowel that appeared to have good healthy tissue proximal to the small bowel injury was chosen for transection. An opening in the mesentery beneath the small bowel was made with the Bovie and the small bowel was transected with an linear CASSIE-75 stapler blue load. An area of the right colon just proximal to the cecum was chosen as the area of transection and an opening in the mesentery beneath this was made with the Bovie. The cecum was transected off the right colon with an linear GIAs 75 stapler blue load. The mesentery of the distal terminal ileum and cecum was divided with the impact LigaSure proceeding in a proximal to distal direction. The right ureter was located and ensured uninjured. The abdomen was copiously irrigated with several liters of sterile saline. Small bowel was very distended with succus which was milked back towards the stomach to be suctioned by anesthesia. Gynecology then performed their part of the procedure and removed the previously placed mesh. Again the abdomen was copiously irrigated with several liters of sterile saline. A ileum to right colon functional side- to-side anastomosis was created, first the common channel was created with an linear CASSIE-75 stapler using a blue load. The lumen was for any bleeding which did not appear to be present. Babcocks were placed across the colon and small bowel open ends ensuring there were no staple line apposition, it was closed with a TA-60 stapler, blue load. A 2-0 silk crotch stitch was placed. The staple line end of the small bowel and colon were reinforced with 2-0 silk [id number] stitches. The mesentery between the right colon and ileum was closed with a 2-0 silk running stitch. The abdomen was irrigated again with sterile saline. The anastomosis was placed in the right lower quadrant. A 10 mm MANUEL drain was placed through the right lower quadrant abdominal wall after first incising the skin with a 15 blade and placed through the abdominal wall with a tonsil. The MANUEL drain laid in the right lower quadrant gutter up along the right colon. The omentum was then draped over and around the ileocolic anastomosis. A 10 mm MANUEL drain was placed in the left lower quadrant after first incising the skin with a 15 blade and placed through the abdominal wall with the tonsil. The MANUEL drain was laid in the pelvis. The abdominal wall midline incision was closed with 2 separate #1 non-looped PDS running stitches meeting in the middle. The subcutaneous tissue was copiously irrigated with sterile saline. A wound VAC using black foam was placed to the midline incision which measured 20 cm long by 2 cm wide by 4 cm deep. The previous Pfannenstiel incision was copiously irrigated with sterile saline. A wound VAC was placed to the Pfannenstiel incision, using black foam, which measured 14 cm wide by 3 cm long by 5 cm deep. Black ridging foam was used between the Pfannenstiel incision in the midline incision. The VAC suction tubing was applied in the VAC was set at 150 mmHg continuous suction. All lap and ensuring counts were correct at the end of the case. The patient tolerated the procedure well. She was extubated by anesthesia in the OR. The Lay catheter and NG tube remained. She was taken to PACU in stable condition.
[2016-10-11] MEDS: *HR* HYDROmorphone (PF) 1 MG/ML SYRINGE IVP PRN ×2 (14:57→15:23)
--- NOTE | 2016-10-11 16:04 | Anesthesia Evaluation Post Op ---
Date of Encounter: 10/11/16 Time of Encounter: 16:03 - Vital Signs Vital Signs: Vital Signs/O2 Sat, Most Current Temp Pulse Resp BP Pulse Ox 98.7 F 101 18 122/81 98 10/11/16 15:57 10/11/16 15:57 10/11/16 15:57 10/11/16 15:57 10/11/16 15:57 - Lungs Lungs: Clear Ascult./Percussion - Airway Airway: Non-obstructed - Mental Status Mental Status: Alert & Oriented, Answers Appropriately, Asleep with brisk response to light stimulation - Pain Pain Scale: 0 Pain Scale used: Numeric (1 - 10) - Nausea Vomiting Nausea Vomiting: Not Present - Hydration Hydration: NPO, Lay catheter - Discharge PostOp Status: Transfer Patient to floor
[2016-10-11] MEDS ORDERED: Naloxone 0.4 MG/ML INJ IVP PRN (16:08)
--- NOTE | 2016-10-11 16:20 | OB/GYN Procedure Note ---
OB-DIRECTOR EXTERNAL COMMUNICATIONS: Procedure - Diagnosis Date of procedure: 10/11/16 Pre-op diagnosis: Status post anterior repair exploratory laparotomy with lysis of adhesions and TVT now with perforated bowel Post-op diagnosis: same - Procedure Procedure: Resection of tvt (Migdalia), Lap with DARLENE, Ileocecetomy and wound vac ([facility] Anesthesia Type: General Estimated blood loss (cc): 300 Fluids: crystalloid Procedure Complications: None Disposition: PACU Findings: Perforated bowel with spilled enteric contents Narrative: Patient's is 61-year-old female 4 days status post inferior vaginal taping placement and what was going to be laparotomy with sacrocolpopexy however upon performing laparotomy dense pelvic adhesions were found with bowel adherent to itself and long vaginal cuff in pelvis. Dr. Padmaja Hopkins had been consulted operatively during the surgery to help with lysis of adhesions. Adhesiolysis went well however I did not feel I can comfortably perform the sacral colpopexy because of the adhesions therefore wound was closed and anterior repair was performed vaginally. Postoperatively patient's continued to have abdominal pain and postoperative day 1 began appearing more ill with pain dyspnea and tachycardia. Chest x-ray was performed showing questionable early infiltrate and patient was started on vancomycin and Zosyn. Her labs were relatively unremarkable and she quickly responded to the antibiotics and Lasix.(Patient takes 80 mg of Lasix a day and had low urine output). She did have abdominal CT with oral and IV contrast to rule out perforated viscus. I did discuss the results with radiologist and there was some free air as well as intrapelvic fluid but given the fact that she was not appearing toxic it was felt was most likely typical postoperative change. Postoperative day 2 she remained relatively stable was afebrile with stable labs and no significant physical exam change. By postoperative day 3 he continued to have relatively stable labs and was afebrile and her and they stated she was feeling better. On the evening of postoperative day 3 she did have 500 mL of hematocrit hematemesis. At that time she was made nothing by mouth, NG tube was placed, and she was started on Prilosec and Carafate for possible gastritis. The morning of postoperative day 4 around on patient gross fecal content was noted coming from wound.This time that I advised patient that perforated bowel had been confirmed and decision was made to proceed to operating room 2 fix the repair and remove the tension-free vaginal taping. Questions were answered and appropriate consent was obtained by myself and Dr. Mcclendon. Description of procedure: For full dictation on exploratory laparotomy and bowel repair please refer to Dr. Mcclendon's note. I did assist Dr. Mcclendon by the main? Procedure was the removal of the tension-free vaginal taping. To do this after the damaged area of bowel had been determined, I performed a vaginal exam identified the suture where the TVT had been placed. The suture was clipped and the TVT was grasped and easily removed without difficulty. It appeared to be intact. At this point history of Vicryl suture was used to reclose the incision. There were no complications of a portion of the procedure and minimal blood loss
[2016-10-11] MEDS: *HR* HYDROmorphone 20 MG/20 ML PCA IVC PRN (17:33)
[2016-10-11] MEDS: 0.9 % Sodium Chloride 1,000 ML IVC SCH (17:42)
[2016-10-11] MEDS: Ondansetron 4 MG/2 ML VIAL IVP PRN (17:43)
[2016-10-11 18:10] LABS: Basophils % 0.2 %; Hematocrit 39.8 % (35.3-44.9); Hemoglobin 14.1 g/dL (11.5-15.4); Immature Granulocytes % 0.5 % (0-4); Immature Platelets 4.9 % (1.1-6.1); Lymphocytes # 0.7 K/mcL (0.6-4.6); Lymphocytes % 5.4 %; Mean Corpuscular HGB Conc 35.4 g/dL (31.6-35.5); Mean Corpuscular Hemoglobin 33.5 pg (28.0-33.3); Mean Corpuscular Volume 94.5 fL (83.0-100.0); Mean Platelet Volume 10.1 fL (9.4-12.4); Monocytes # 0.7 K/mcL (0.0-1.3); Neutrophils # 11.8 K/mcL (1.6-8.9); Platelet Count 258 K/mcL (140-400); Red Blood Count 4.21 M/mcL (3.82-4.97); Red Cell Distribution Width 13.1 % (11.5-14.5); Segmented Neutrophils % 88.9 %
[2016-10-11 18:19] LABS: Calcium 7.6 mg/dL (8.6-10.8); Magnesium 1.6 mg/dL (1.6-2.6); Phosphorous 3.9 mg/dL (2.3-4.7); Potassium 3.7 mEq/L (3.5-4.5)
[2016-10-11 18:34] LABS: Platelet Estimate Normal (Normal)
[2016-10-11] MEDS: Vancomycin 1,500 MG in D5% in Water 250 ML IVPB SCH ×2 (21:17→22:19)
[2016-10-12] MEDS: 0.9 % Sodium Chloride 1,000 ML IVC SCH ×3 (02:18→23:05)
[2016-10-12 04:20] LABS: Hematocrit 35.4 % (35.3-44.9); Mean Corpuscular HGB Conc 34.2 g/dL (31.6-35.5); Mean Corpuscular Hemoglobin 33.2 pg (28.0-33.3); Mean Corpuscular Volume 97.3 fL (83.0-100.0); Mean Platelet Volume 10.2 fL (9.4-12.4); Platelet Count 203 K/mcL (140-400); Red Blood Count 3.64 M/mcL (3.82-4.97); Red Cell Distribution Width 13.2 % (11.5-14.5)
[2016-10-12 04:22] LABS: Calcium 7.5 mg/dL (8.6-10.8); Magnesium 1.7 mg/dL (1.6-2.6); Phosphorous 4.1 mg/dL (2.3-4.7); Potassium 3.9 mEq/L (3.5-4.5)
[2016-10-12 04:32] LABS: Hemoglobin 12.1 g/dL (11.5-15.4)
[2016-10-12 06:37] LABS: Lymphocytes # 1.1 K/mcL (0.6-4.6); Monocytes # 0.6 K/mcL (0.0-1.3); Neutrophils # 10.6 K/mcL (1.6-8.9); Platelet Estimate Normal (Normal)
[2016-10-12] MEDS: Piperacillin/Tazobactam 3.375 GM in D5% in Water (Mini-Bag+) 100 ML IVPB SCH ×3 (09:19→23:56)
[2016-10-12] MEDS: Pantoprazole 40 MG VIAL IVP SCH (09:20)
[2016-10-12] MEDS ORDERED: Dextrose Gel 15 GM PO PRN ×2 (10:19)
[2016-10-12] MEDS ORDERED: *HR* Dextrose 50 % in Water (Syg) 50 ML SYRINGE IVP PRN (10:19)
[2016-10-12] MEDS ORDERED: D5% in Water 1,000 ML IV PRN (10:19)
[2016-10-12] MEDS ORDERED: Lidocaine Viscous Oral Soln 15 ML SOLUTION MM PRN (10:20)
[2016-10-12] MEDS ORDERED: Chloraseptic Spray 177 ML BOTTLE MM PRN (10:20)
--- NOTE | 2016-10-12 10:26 | General Surgery Progress Note ---
<Alexandra Nevarez Radha - Last Filed: 10/12/16 10:24> Date of Encounter: 10/12/16 Time of Encounter: 10:00 - Assessment and Plan (1) Perforated abdominal viscus Current Visit: Yes Status: Acute POD #1 Exploratory laparotomy, lysis of adhesions, ileocectomy, wound vac placement with Dr. 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- STUDIO DIRECTOR Wound vac to Midline- change every MWF per surgery team Start TPN today for nutritional support- Chief Marketing Officer consulted Total fluid rate 110ml/hour (MIV + TPN) Repeat am labs Incentive Spirometer every 1 hour while awake Increase activity as tolerated- dangle on the side of bed today (2) Leukocytosis Current Visit: Yes Status: Acute Continue IV antibiotics- Vancomycin and Zosyn Repeat labs in the am Qualifiers: Leukocytosis type: bandemia Qualified Code(s): D72.825 - Bandemia (3) Acute kidney injury Current Visit: Yes Status: Acute Continue IV fluids Avoid nephrotoxic medications Lay cateter to SD for strict I&Os Repeat labs in the am (4) Hyperglycemia Current Visit: Yes Status: Acute mildly hyperglycemic Start medium scale sliding scale insulin coverage with start of TPN- every 6 hour coverage Will continue to monitor and adjust treatment as necessary (5) DVT prophylaxis Current Visit: Yes Status: Acute Heparin 5,000 units SQ twice daily for DVT prophylaxis EPCDs bilateral lower extremities for DVT prophylaxis Subjective Patient reports: no new complaints, still having pain (surgical), no flatus, no bowel movement, afebrile, other (Patient resting and states that that STUDIO DIRECTOR pump is helping her surgical discomfort) Objective Vital Signs - Last 8 Hours Temp Pulse Resp BP Pulse Ox 10/12/16 07:38 98.4 F 99 16 109/70 92 L 10/12/16 05:25 99.0 F 98 18 110/70 92 L Intake and Output 10/11/16 10/12/16 10/12/16 23:59 07:59 15:59 Intake Total 350 / 350 1050 / 1050 Output Total 320 / 320 415 / 415 Balance 30 / 30 635 / 635 Intake: IV Fluids 350 / 350 1050 / 1050 0.9 % Sodium Chloride 1, 950 / 950 000 ML @ 110 mls/hr IVC . Q9H6M [facility] Rx#:[id number] Zosyn 3.375 GM In 100 / 100 100 / 100 Dextrose 5% (Minibag+) 100 ML 100 ML @ 25 mls/hr IVPB Q8HR [facility] Rx#: [id number] Vancocin 1,500 MG In 250 / 250 Dextrose 5% 250 ML @ 166. 67 mls/hr IVPB Q24H [facility] Rx#:[id number] Oral 0 / 0 0 / 0 Output: Gastric Tube Lavage 100 / 100 Amount Left Nare 100 / 100 Catheter 250 / 250 250 / 250 Wound Drainage 70 / 70 65 / 65 Abdomen 25 / 25 Left Lower Abdomen 40 / 40 20 / 20 Right Lower Abdomen 30 / 30 20 / 20 Other: Meal NPO Weight 84.2 kg Blood Glucose* 145 Patient Weight 10/12/16 23:59 Weight 84.2 kg - General physical appearance well developed, no distress, moderate pain - Eyes normal ocular movement - ENT dry mucosa, atraumatic, normocephalic - Neck Neck exam: trachea midline - Respiratory normal respiratory effort, clear to auscultation, other (Diminished bibasilar bases; Incentive spirometer- pulling 1500ml) - Cardiovascular Cardiovascular exam: Present: RRR - Abdomen Abdomen: Present: soft, tender (expected post-operative tenderness), wound ( Midline and lower abdomen with wound vac in place (30ml of serousang. drainage noted); RLQ MANUEL #1 with serousang. drainage noted (50ml since surgery); LLQ MANUEL # 2 with serousang. drainage noted (60ml since surgery); NG tube to LIWS (235ml noted since surgery)) - Incision Incision: Present: open (Wound vac in place with 30ml of serousang. drainage noted) - Genitourinary other (Lay catheter to SD with amador yellow urine (400ml since surgery)) - Integumentary no rash, no growths - Neurologic CN 2-12 grossly intact - Musculoskeletal other (Unable to assess) - Psychiatric oriented to time, oriented to person, oriented to place, speech is normal, memory intact - Labs 10/12/16 03:40 10/12/16 03:40 Diabetes panel 10/11/16 10/12/16 Range/Units 17:56 03:40 Sodium 134 L 135 L (136-145) mEq/L Potassium 3.7 3.9 (3.5-4.5) mEq/L Chloride 101 102 (98-109) mEq/L Carbon Dioxide 23 25 (19-29) mEq/L BUN 18 24 H (7-20) mg/dL Creatinine 1.31 H D 1.66 H (0.57-1.11) mg/dL Glucose 216 H 180 H (70-99) mg/dL Calcium 7.6 L 7.5 L (8.6-10.8) mg/dL Calcium panel 10/11/16 10/12/16 Range/Units 17:56 03:40 Calcium 7.6 L 7.5 L (8.6-10.8) mg/dL Phosphorus 3.9 4.1 (2.3-4.7) mg/dL Pituitary panel 10/11/16 10/12/16 Range/Units 17:56 03:40 Sodium 134 L 135 L (136-145) mEq/L Potassium 3.7 3.9 (3.5-4.5) mEq/L Chloride 101 102 (98-109) mEq/L Carbon Dioxide 23 25 (19-29) mEq/L BUN 18 24 H (7-20) mg/dL Creatinine 1.31 H D 1.66 H (0.57-1.11) mg/dL Glucose 216 H 180 H (70-99) mg/dL Calcium 7.6 L 7.5 L (8.6-10.8) mg/dL Adrenal panel 10/11/16 10/12/16 Range/Units 17:56 03:40 Sodium 134 L 135 L (136-145) mEq/L Potassium 3.7 3.9 (3.5-4.5) mEq/L Chloride 101 102 (98-109) mEq/L Carbon Dioxide 23 25 (19-29) mEq/L BUN 18 24 H (7-20) mg/dL Creatinine 1.31 H D 1.66 H (0.57-1.11) mg/dL Glucose 216 H 180 H (70-99) mg/dL Calcium 7.6 L 7.5 L (8.6-10.8) mg/dL - VTE Documentation of Mechanical Device: Intermittent pneumatic compression device Consult Discharge Plan - Plan Referrals: Michael Negron MD [Partnered Physician] - 10/19/16 10:35 am Alda Arroyo MD [Primary Care Provider] - - Attending Attestation I examined this patient and my medical decision-making was reviewed with the TELEGRAPHIC TYPEWRITER INSTALLER/PA/Advanced Practice Nurse/Resident Physician. I agree with the documented findings, disposition and treatment plan as described except to the extent set forth below. <Traci Hopkins - Last Filed: 10/12/16 15:27> - Assessment and Plan (1) Leukocytosis Current Visit: Yes Status: Acute perintoneal cultures pending, continue vanco and zosyn trend wbc Qualifiers: Leukocytosis type: bandemia Qualified Code(s): D72.825 - Bandemia (2) Perforated abdominal viscus Current Visit: Yes Status: Acute await return of bowel function continue ngt decompression, ok ice and popcicles wound vac to all incisions - change M, W, F start TPN - expect postop ileus OOB to chair begin today begin PT/OT aggressive pulmonary toilet jewish history professor pain control Subjective Patient reports: no flatus, no bowel movement Narrative: pain controlled with jewish history professor no nausea not out of bed yet mouth dry Objective Vital Signs - Last 8 Hours Temp Pulse Resp BP Pulse Ox 10/12/16 14:29 98.5 F 72 16 100/78 98 10/12/16 07:38 98.4 F 99 16 109/70 92 L Intake and Output 10/11/16 10/12/16 10/12/16 23:59 07:59 15:59 Intake Total 350 / 350 1050 / 1050 Output Total 320 / 320 415 / 415 700 / 700 Balance 30 / 30 635 / 635 -700 / -700 Intake: IV Fluids 350 / 350 1050 / 1050 0.9 % Sodium Chloride 1, 950 / 950 000 ML @ 110 mls/hr IVC . Q9H6M [facility] Rx#:[id number] Zosyn 3.375 GM In 100 / 100 100 / 100 Dextrose 5% (Minibag+) 100 ML 100 ML @ 25 mls/hr IVPB Q8HR [facility] Rx#: [id number] Vancocin 1,500 MG In 250 / 250 Dextrose 5% 250 ML @ 166. 67 mls/hr IVPB Q24H [facility] Rx#:[id number] Oral 0 / 0 0 / 0 Output: Gastric Tube Lavage 100 / 100 Amount Left Nare 100 / 100 Catheter 250 / 250 250 / 250 300 / 300 Gastric Drainage 400 / 400 Wound Drainage 70 / 70 65 / 65 Abdomen 25 / 25 Left Lower Abdomen 40 / 40 20 / 20 Right Lower Abdomen 30 / 30 20 / 20 Other: Meal NPO Weight 84.2 kg Blood Glucose* 145 Patient Weight 10/12/16 23:59 Weight 84.2 kg - General physical appearance well developed, well nourished, no distress - Eyes PERRL, normal ocular movement - ENT dry mucosa, atraumatic, normocephalic - Neck Neck exam: trachea midline - Respiratory clear to auscultation - Cardiovascular Cardiovascular exam: Present: RRR - Abdomen Abdomen: Present: soft, tender. Absent: bowel sounds present - Incision Incision: Present: open - Integumentary no rash, no growths - Neurologic CN 2-12 grossly intact - Musculoskeletal other - Psychiatric oriented to time, oriented to person, memory intact - Labs 10/12/16 03:40 10/12/16 03:40 Short CBC 10/12/16 10/11/16 Range/Units 03:40 17:56 WBC 12.3 H 13.3 H (4.3-11.1) K/mcL Hgb 12.1 D 14.1 (11.5-15.4) g/dL Hct 35.4 39.8 (35.3-44.9) % Plt Count 203 258 (140-400) K/mcL Neutrophils # 10.6 H 11.8 H (1.6-8.9) K/mcL BMP 10/12/16 10/11/16 Range/Units 03:40 17:56 Sodium 135 L 134 L (136-145) mEq/L Potassium 3.9 3.7 (3.5-4.5) mEq/L Chloride 102 101 (98-109) mEq/L Carbon Dioxide 25 23 (19-29) mEq/L BUN 24 H 18 (7-20) mg/dL Creatinine 1.66 H 1.31 H D (0.57-1.11) mg/dL Glucose 180 H 216 H (70-99) mg/dL Calcium 7.5 L 7.6 L (8.6-10.8) mg/dL Vital Signs Temp Pulse Resp BP Pulse Ox 10/12/16 14:29 98.5 F 72 16 100/78 98 10/12/16 07:38 98.4 F 99 16 109/70 92 L 10/12/16 05:25 99.0 F 98 18 110/70 92 L 10/12/16 01:56 98.1 F 99 95 10/11/16 23:56 97.4 F L 96 18 102/66 97 10/11/16 19:52 98 10/11/16 19:22 98.4 F 102 18 114/76 98 10/11/16 18:15 98.5 F 100 18 127/81 97 10/11/16 17:15 98.4 F 103 20 129/81 99 10/11/16 16:45 98.2 F 102 16 122/78 97 10/11/16 16:15 98.6 F 102 14 113/74 98 10/11/16 15:57 98.7 F 101 18 122/81 98 10/11/16 15:47 98.5 F 99 16 121/78 98 10/11/16 15:37 98.5 F 101 16 120/75 98 10/11/16 15:27 103 18 126/86 98 Intake and Output 10/11/16 10/12/16 10/12/16 23:59 07:59 15:59 Intake Total 350 / 350 1050 / 1050 Output Total 320 / 320 415 / 415 700 / 700 Balance 635 / 635 -700 / -700 Intake: IV Fluids 350 / 350 1050 / 1050 0.9 % Sodium Chloride 1, 950 / 950 000 ML @ 110 mls/hr IVC . Q9H6M [facility] Rx#:[id number] Zosyn 3.375 GM In 100 / 100 100 / 100 Dextrose 5% (Minibag+) 100 ML 100 ML @ 25 mls/hr IVPB Q8HR [facility] Rx#: [id number] Vancocin 1,500 MG In 250 / 250 Dextrose 5% 250 ML @ 166. 67 mls/hr IVPB Q24H [facility] Rx#:[id number] Oral 0 / 0 0 / 0 Output: Gastric Tube Lavage 100 / 100 Amount Left Nare 100 / 100 Catheter 250 / 250 250 / 250 300 / 300 Gastric Drainage 400 / 400 Wound Drainage 70 / 70 65 / 65 Abdomen 25 / 25 Left Lower Abdomen 40 / 40 20 / 20 Right Lower Abdomen 30 / 30 20 / 20 Other: Meal NPO Weight 84.2 kg Blood Glucose* 145 Patient Weight 10/12/16 23:59 Weight 84.2 kg
[2016-10-12] MEDS: Erythromycin OPTH Oint RIGHT EYE SCH ×3 (13:40→21:28)
[2016-10-12] MEDS: *HR* Heparin 5,000 UNIT/ML VIAL SQ SCH ×2 (13:40→17:40)
[2016-10-12] MEDS: Insulin LISPRO 300 UNITS/3 ML VIAL SQ SCH ×3 (13:41→23:55)
[2016-10-12] MEDS ORDERED: Clinimix E 5%-15% SOLUTION 2,000 ML with MVI, adult with vitamin K 10 ML IV SCH (17:00)
[2016-10-12] MEDS: Acetaminophen IV 1,000 MG/100 ML INFUS..BTL IVPB SCH ×2 (17:41→21:27)
[2016-10-12] MEDS ORDERED: *HR* Heparin 5,000 UNIT/ML VIAL SQ SCH (18:00)
--- NOTE | 2016-10-12 18:44 | OB/GYN Progress Note ---
Date of Encounter: 10/12/16 Time of Encounter: 18:42 - Assessment and Plan (1) Pelvic prolapse Current Visit: Yes Status: Acute Pt POD #1 s/p exp lap with PONCHO, ant repair and TVT. Pt overall doing ok, however she does have some nausea and no flatus. + BM. Pt also with low grade temp. Will cont. post op care. Concerned over pt's continued abdominal pain. She has continued low grade temp and isn't really progressing very well. Will check stat CT of abd and pelvis to r/o bowel perforation as her surgery was quite involved with extnesive PONCHO. Will order stat CBC and Chem 7. Qualifiers: Prolapse type: other female genital prolapse Qualified Code(s): N81.89 - Other female genital prolapse; N81.8 - Other female genital prolapse (2) Postoperative tachycardia and tachypnea Current Visit: Yes Status: Resolved Pt typically takes lasix 40 mg daily. She has not taken her po lasix today b/c of nausea. Will check cxr. Her lungs are clear. May need IV Lasix Pt has responded to Lasix, with improved urine output. She is on atb's for possible early pneumonia. Pt's oxygen sats are now impoved to 95 on 2 l oxygen NC, her respirtions are less labored. These problems are currently stable (3) Postoperative generalized abdominal pain Current Visit: Yes Status: Acute Pt with nausea and no flatus. Pt now s/p CT of abd and pelvis. I discussed the results with radiology. Some free air and fluid found that could be c/w post op change. No obvious area of bowel perforation. Pt with stable WBC. Will cont. close observation. Consider repeat CT in a couple of days. (4) Hematemesis with nausea Current Visit: Yes Status: Acute Pt with likely ileus with gastritis. Pt placed NPO, will place NG and start IV Prilosec 40 mg BID and PO carafate. Will cont. close observation. NG tube in place, pt with perforated viscus, will proceed to OR. Cont. Prilosec and carafate. (5) Perforated abdominal viscus Current Visit: Yes Status: Acute Pt now with evidence of perforated viscus with stool from incision. Pt aware of seriousness of situation, fortunately pt without evidence of sepsis at this point with stable vital signs and labs. D/w Dr. Hopkins and will proceed to OR for exploratory laparotomy, repair of perforated viscus, possible colostomy and TVT removal. Will obtain consent. 10/12/16- Pt doing much better today s/p exploratory lap with repair of perforated viscus and TVT removal. Her VS are stable and abd less tender and less distended. MANUEL drains with appropriate amt of serosangounous drainage. She remains on Vanco and Gent without evidence of sepsis. TPN has been started and she is on ssi for elevated BS. BUN and CR have elevated slightly and we will repeat labs in am. When cultures come back that were taken during surgery may be able to D/c Vanco. Subjective - Subjective Principal diagnosis: POD 4s/p exp lap with poncho, ant repair and tvt, now POD 1 s/ p repair of kimber Interval history: Pt feeling much better today. Less nausea and feeling a bit more energy. 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 No flatus or BM. Objective - Vital Signs Vital Signs: Vital Signs Temp Pulse Resp BP Pulse Ox 10/12/16 14:29 98.5 F 72 16 100/78 98 10/12/16 07:38 98.4 F 99 16 109/70 92 L 10/12/16 05:25 99.0 F 98 18 110/70 92 L 10/12/16 01:56 98.1 F 99 95 10/11/16 23:56 97.4 F L 96 18 102/66 97 10/11/16 19:52 98 10/11/16 19:22 98.4 F 102 18 114/76 98 Intake and Output 10/12/16 10/12/16 10/12/16 07:59 15:59 23:59 Intake Total 1050 / 1050 0 / 0 0 / 0 Output Total 415 / 415 700 / 700 Balance 635 / 635 -700 / -700 0 / 0 Intake: IV Fluids 1050 / 1050 0 / 0 0.9 % Sodium Chloride 1, 950 / 950 000 ML @ 110 mls/hr IVC . Q9H6M [facility] Rx#:[id number] Zosyn 3.375 GM In 100 / 100 0 / 0 Dextrose 5% (Minibag+) 100 ML 100 ML @ 25 mls/hr IVPB Q8HR [facility] Rx#: [id number] Oral 0 / 0 0 / 0 Output: Gastric Tube Lavage 100 / 100 Amount Left Nare 100 / 100 Catheter 250 / 250 300 / 300 Gastric Drainage 400 / 400 Wound Drainage 65 / 65 Abdomen 25 / 25 Left Lower Abdomen 20 / 20 Right Lower Abdomen 20 / 20 Other: Meal NPO NPO Percent of Meal Consumed 0% Weight 84.2 kg Blood Glucose* 145 168 Patient Weight 10/12/16 23:59 Weight 84.2 kg - Exam Auscultation: bilateral: normal Abdomen: Present: other (softer, wound vac in place, MANUEL's with thin serosangounous drainage (25 and 50)) Comments: Pt with skin tear on rt buttoks, no evidence of ulceration, barrier applied - Labs Labs: Abnormal lab results WBC 12.3 K/mcL (4.3-11.1) H 10/12/16 03:40 RBC 3.64 M/mcL (3.82-4.97) L 10/12/16 03:40 Band Neutrophils % 19.0 % (0-4) H 10/12/16 03:40 Neutrophils # 10.6 K/mcL (1.6-8.9) H 10/12/16 03:40 Reactive Lymphocytes Present (Not Present) A 10/11/16 05:15 Dohle Bodies Present (Not Present) A 10/10/16 03:39 Polychromasia 1+ (Not Present) A 10/10/16 03:39 Anisocytosis 1+ (Not Present) A 10/10/16 03:39 Sodium 135 mEq/L (136-145) L 10/12/16 03:40 BUN 24 mg/dL (7-20) H 10/12/16 03:40 Creatinine 1.66 mg/dL (0.57-1.11) H 10/12/16 03:40 Est GFR ( Amer) 38 (> 60) L 10/12/16 03:40 Est GFR (Non-Af Amer) 31 (> 60) L 10/12/16 03:40 Glucose 180 mg/dL (70-99) H 10/12/16 03:40 POC Glucose 168 (58-89) H 10/12/16 17:11 Calcium 7.5 mg/dL (8.6-10.8) L 10/12/16 03:40 Prealbumin 5.0 mg/dL (16.0-38.0) L 10/12/16 12:32 Triglycerides 220 mg/dL (< 150) H 10/12/16 12:32
[2016-10-12] MEDS: Vancomycin 1,500 MG in D5% in Water 250 ML IVPB SCH (22:06)
[2016-10-13] MEDS: *HR* HYDROmorphone 20 MG/20 ML PCA IVC PRN (01:53)
[2016-10-13] MEDS: Acetaminophen IV 1,000 MG/100 ML INFUS..BTL IVPB SCH ×4 (03:59→20:48)
[2016-10-13] MEDS: Insulin LISPRO 300 UNITS/3 ML VIAL SQ SCH ×5 (05:17→20:47)
[2016-10-13] MEDS: *HR* Heparin 5,000 UNIT/ML VIAL SQ SCH ×2 (05:19→17:45)
[2016-10-13] MEDS: Erythromycin OPTH Oint RIGHT EYE SCH ×3 (07:58→20:47)
[2016-10-13] MEDS: Pantoprazole 40 MG VIAL IVP SCH (07:58)
[2016-10-13] MEDS: Piperacillin/Tazobactam 3.375 GM in D5% in Water (Mini-Bag+) 100 ML IVPB SCH ×2 (08:00→15:44)
--- NOTE | 2016-10-13 09:03 | General Surgery Progress Note ---
<Genet Garcia - Last Filed: 10/13/16 11:42> Date of Encounter: 10/13/16 Time of Encounter: 09:01 - Assessment and Plan (1) Perforated abdominal viscus Current Visit: Yes Status: Acute POD #2 Exploratory laparotomy, lysis of adhesions, ileocectomy, wound vac placement with Dr. 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 Wound vac to Midline- change every MWF per surgery team TPN Total fluid rate 110ml/hour (MIV + TPN) Repeat AM labs Incentive Spirometer every 1 hour while awake Increase activity as tolerated (2) Pelvic prolapse Current Visit: Yes Status: Acute POD #5 s/p exp lap with DARLENE, ant repair and TVT Qualifiers: Prolapse type: other female genital prolapse Qualified Code(s): N81.89 - Other female genital prolapse; N81.8 - Other female genital prolapse (3) Leukocytosis Current Visit: Yes Status: Acute peritoneal culture final result no growth IV antibiotics - Vancomycin and Zosyn repeat AM labs Qualifiers: Leukocytosis type: bandemia Qualified Code(s): D72.825 - Bandemia (4) Acute kidney injury Current Visit: Yes Status: Acute improved Cr 1.66>1.54 Continue IV fluids Avoid nephrotoxic medications Lay cateter to SD for strict I&Os Repeat AM labs (5) Hyperglycemia Current Visit: Yes Status: Acute high dose scale sliding scale q4hr Will continue to monitor and adjust treatment as necessary (6) DVT prophylaxis Current Visit: Yes Status: Acute Heparin 5,000 units SQ twice daily for DVT prophylaxis EPCDs bilateral lower extremities for DVT prophylaxis Subjective Patient reports: no new complaints, still having pain (surgical), pain is less, no flatus, no bowel movement, afebrile Objective Vital Signs - Last 8 Hours Temp Pulse Resp BP Pulse Ox 10/13/16 07:13 98.4 F 68 16 123/87 98 10/13/16 07:05 98 10/13/16 04:35 97.9 F 76 14 137/71 98 Intake and Output 10/12/16 10/13/16 10/13/16 23:59 07:59 15:59 Intake Total 1790 / 1790 1376 / 1376 528 / 528 Output Total 707 / 707 1675 / 1675 Balance 1083 / 1083 -299 / -299 528 / 528 Intake: IV Fluids 1550 / 1550 1376 / 1376 408 / 408 Clinimix E 5%-15% 547 / 547 140 / 140 SOLUTION 2,000 ML @ 50 mls/hr IV .Q24H [facility] with M.v.i. Adult 10 ml Rx#: [id number] 0.9 % Sodium Chloride 1, 379 / 379 168 / 168 000 ML @ 110 mls/hr IVC . Q9H6M [facility] Rx#:[id number] Ofirmev 1,000 mg In 100 200 / 200 100 / 100 100 / 100 ml @ 400 mls/hr IVPB Q6H [facility] Rx#:[id number] Intralipid 20% 250 ML @ 250 / 250 21 mls/hr IVPB DAILY@1700 [facility] Rx#:[id number] Zosyn 3.375 GM In 100 / 100 100 / 100 Dextrose 5% (Minibag+) 100 ML 100 ML @ 25 mls/hr IVPB Q8HR [facility] Rx#: [id number] Vancocin 1,500 MG In 250 / 250 Dextrose 5% 250 ML @ 166. 67 mls/hr IVPB Q24H [facility] Rx#:[id number] Oral 240 / 240 0 / 0 120 / 120 Output: Catheter 0 / 0 1075 / 1075 Gastric Drainage 650 / 650 550 / 550 Wound Drainage 57 / 57 50 / 50 Abdomen 25 / 25 0 / 0 Left Lower Abdomen 30 / 30 40 / 40 Right Lower Abdomen 2 / 2 10 / 10 Other: Meal NPO Percent of Meal Consumed 0% Weight 84.7 kg Blood Glucose* 247 177 Patient Weight 10/13/16 23:59 Weight 84.7 kg - General physical appearance well developed, well nourished, no distress - Eyes normal ocular movement - ENT normal mucosa, atraumatic, normocephalic - Neck Neck exam: trachea midline - Respiratory normal respiratory effort, clear to auscultation - Cardiovascular Cardiovascular exam: Present: RRR - Abdomen Abdomen: Present: soft, tender (expected post-op), wound (Midline and lower abdomen with wound vac in place (50ml of serousang. drainage noted); RLQ MANUEL #1 with serousang. drainage noted (69ml since surgery); LLQ MANUEL #2 with serousang. drainage noted (145ml since surgery); NG tube to LIWS (550ml noted since midnight)). Absent: bowel sounds present - Incision Incision: Present: open (Wound vac in place with 50ml of serousang. drainage noted) - Genitourinary other (Lay catheter to SD with amador yellow urine (1075 previous 24 hrs)) - Integumentary no rash - Neurologic CN 2-12 grossly intact - Psychiatric oriented to time, oriented to person, oriented to place, speech is normal, memory intact - Labs 10/13/16 11:03 10/12/16 03:40 Diabetes panel 10/12/16 Range/Units 12:32 Triglycerides 220 H (< 150) mg/dL - VTE Documentation of Mechanical Device: Intermittent pneumatic compression device Consult Discharge Plan - Plan Referrals: Michael Negron MD [Partnered Physician] - 10/19/16 10:35 am Alda Arroyo MD [Primary Care Provider] - <Anastacio Arreguin - Last Filed: 10/13/16 15:00> Objective Vital Signs - Last 8 Hours Temp Pulse Resp BP Pulse Ox 10/13/16 11:45 67 16 123/94 98 10/13/16 10:47 98.4 F 67 16 123/94 98 10/13/16 07:13 98.4 F 68 16 123/87 98 10/13/16 07:05 98 Intake and Output 10/12/16 10/13/16 10/13/16 23:59 07:59 15:59 Intake Total 1790 / 1790 1376 / 1376 1248 / 1248 Output Total 707 / 707 1675 / 1675 830 / 830 Balance 1083 / 1083 -299 / -299 418 / 418 Intake: IV Fluids 1550 / 1550 1376 / 1376 888 / 888 Clinimix E 5%-15% 547 / 547 311 / 311 SOLUTION 2,000 ML @ 50 mls/hr IV .Q24H [facility] with M.v.i. Adult 10 ml Rx#: [id number] 0.9 % Sodium Chloride 1, 379 / 379 377 / 377 000 ML @ 110 mls/hr IVC . Q9H6M [facility] Rx#:[id number] Ofirmev 1,000 mg In 100 200 / 200 100 / 100 100 / 100 ml @ 400 mls/hr IVPB Q6H [facility] Rx#:[id number] Intralipid 20% 250 ML @ 250 / 250 21 mls/hr IVPB DAILY@1700 [facility] Rx#:[id number] Zosyn 3.375 GM In 100 / 100 100 / 100 100 / 100 Dextrose 5% (Minibag+) 100 ML 100 ML @ 25 mls/hr IVPB Q8HR [facility] Rx#: [id number] Vancocin 1,500 MG In 250 / 250 Dextrose 5% 250 ML @ 166. 67 mls/hr IVPB Q24H [facility] Rx#:[id number] Oral 240 / 240 0 / 0 360 / 360 Output: Catheter 0 / 0 1075 / 1075 300 / 300 Gastric Drainage 650 / 650 550 / 550 500 / 500 Wound Drainage 57 / 57 50 / 50 30 / 30 Abdomen 25 / 25 0 / 0 Left Lower Abdomen 30 / 30 40 / 40 10 / 10 Right Lower Abdomen 2 / 2 10 / 10 20 / 20 Other: Meal NPO NPO Percent of Meal Consumed 0% 0% Weight 84.7 kg Blood Glucose* 247 177 170 Patient Weight 10/13/16 23:59 Weight 84.7 kg - Labs 10/13/16 11:03 10/13/16 11:03 Diabetes panel 10/13/16 Range/Units 11:03 Sodium 135 L (136-145) mEq/L Potassium 3.2 L (3.5-4.5) mEq/L Chloride 103 (98-109) mEq/L Carbon Dioxide 26 (19-29) mEq/L BUN 37 H D (7-20) mg/dL Creatinine 1.54 H (0.57-1.11) mg/dL Glucose 169 H (70-99) mg/dL Calcium 7.5 L (8.6-10.8) mg/dL Calcium panel 10/13/16 10/13/16 Range/Units 11:03 11:03 Calcium 7.5 L (8.6-10.8) mg/dL Phosphorus 2.3 (2.3-4.7) mg/dL Pituitary panel 10/13/16 Range/Units 11:03 Sodium 135 L (136-145) mEq/L Potassium 3.2 L (3.5-4.5) mEq/L Chloride 103 (98-109) mEq/L Carbon Dioxide 26 (19-29) mEq/L BUN 37 H D (7-20) mg/dL Creatinine 1.54 H (0.57-1.11) mg/dL Glucose 169 H (70-99) mg/dL Calcium 7.5 L (8.6-10.8) mg/dL Adrenal panel 10/13/16 Range/Units 11:03 Sodium 135 L (136-145) mEq/L Potassium 3.2 L (3.5-4.5) mEq/L Chloride 103 (98-109) mEq/L Carbon Dioxide 26 (19-29) mEq/L BUN 37 H D (7-20) mg/dL Creatinine 1.54 H (0.57-1.11) mg/dL Glucose 169 H (70-99) mg/dL Calcium 7.5 L (8.6-10.8) mg/dL - Attending Attestation I examined this patient and my medical decision-making was reviewed with the RELOCATION SPECIALIST/PA/Advanced Practice Nurse/Resident Physician. I agree with the documented findings, disposition and treatment plan as described except to the extent set forth below. Patient without any nausea or vomiting. No flatus evident. Wound VAC in place. Continue with IV antibiotics and NG tube decompression. Continue with TPN. Hypokalemia noted and will be replaced today. Leukocytosis appears to be somewhat stable but fluctuates between 12-13,000. We will continue to follow both the BMP and CBC.
[2016-10-13 11:30] LABS: Basophils % 0.2 %; Eosinophils # 0.1 K/mcL (0.0-0.6); Eosinophils % 0.5 %; Hematocrit 26.9 % (35.3-44.9); Immature Granulocytes % 1.8 % (0-4); Lymphocytes # 0.9 K/mcL (0.6-4.6); Lymphocytes % 6.8 %; Mean Corpuscular HGB Conc 33.5 g/dL (31.6-35.5); Mean Corpuscular Hemoglobin 33.5 pg (28.0-33.3); Mean Platelet Volume 9.7 fL (9.4-12.4); Monocytes % 7.8 %; Neutrophils # 10.5 K/mcL (1.6-8.9); Platelet Count 168 K/mcL (140-400); Red Blood Count 2.69 M/mcL (3.82-4.97); Segmented Neutrophils % 82.9 %
[2016-10-13 11:41] LABS: Magnesium 2.3 mg/dL (1.6-2.6); Phosphorous 2.3 mg/dL (2.3-4.7)
[2016-10-13 11:42] LABS: Calcium 7.5 mg/dL (8.6-10.8); Potassium 3.2 mEq/L (3.5-4.5)
--- NOTE | 2016-10-13 13:24 | OB/GYN Progress Note ---
Date of Encounter: 10/13/16 Time of Encounter: 13:21 - Assessment and Plan (1) Pelvic prolapse Current Visit: Yes Status: Acute Pt POD #5 s/p exp lap with PONCHO, ant repair and TVT. POD # 2 s/p repair of bowel injury and removal of TVT. 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 Pt NPO, NG tube functioning, IV Prilosec 40 mg BID and PO carafate. + BS! (5) Perforated abdominal viscus Current Visit: Yes Status: Acute Pt POD # 2 s/p repair, progressing well, appropriate serosangonous MANUEL drainage, wounds look good with wound vac in place (6) Acute kidney injury Current Visit: Yes Status: Acute UOP good and urine is clear, creat improving (7) DVT prophylaxis Current Visit: Yes Status: Acute (8) Leukocytosis Current Visit: Yes Status: Acute WBC stable, pt afebirle, Remains on vanc and gent. cultures obtained from intraop are negative. Qualifiers: Leukocytosis type: bandemia Qualified Code(s): D72.825 - Bandemia Subjective - Subjective Principal diagnosis: pod 5 lap with poncho, ant repair and tvt, pod2 bowel repair, tvt removal Interval history: Doing better, more energetic, no flatus or bm, good pain control. No other c/o. Patient reports: other (thirsty) Objective - Vital Signs Latest vital signs: Vital Signs Temp Pulse Resp BP Pulse Ox 10/13/16 11:45 67 16 123/94 98 10/13/16 10:47 98.4 F 67 16 123/94 98 10/13/16 07:13 98.4 F 68 16 123/87 98 10/13/16 07:05 98 10/13/16 04:35 97.9 F 76 14 137/71 98 10/12/16 23:20 98.6 F 83 16 116/70 93 L 10/12/16 20:25 99.8 F H 96 15 119/73 96 10/12/16 14:29 98.5 F 72 16 100/78 98 Intake and Output 10/12/16 10/13/16 10/13/16 23:59 07:59 15:59 Intake Total 1790 / 1790 1376 / 1376 1248 / 1248 Output Total 707 / 707 1675 / 1675 830 / 830 Balance 1083 / 1083 -299 / -299 418 / 418 Intake: IV Fluids 1550 / 1550 1376 / 1376 888 / 888 Clinimix E 5%-15% 547 / 547 311 / 311 SOLUTION 2,000 ML @ 50 mls/hr IV .Q24H [facility] with M.v.i. Adult 10 ml Rx#: [id number] 0.9 % Sodium Chloride 1, 379 / 379 377 / 377 000 ML @ 110 mls/hr IVC . Q9H6M [facility] Rx#:[id number] Ofirmev 1,000 mg In 100 200 / 200 100 / 100 100 / 100 ml @ 400 mls/hr IVPB Q6H [facility] Rx#:[id number] Intralipid 20% 250 ML @ 250 / 250 21 mls/hr IVPB DAILY@1700 [facility] Rx#:[id number] Zosyn 3.375 GM In 100 / 100 100 / 100 100 / 100 Dextrose 5% (Minibag+) 100 ML 100 ML @ 25 mls/hr IVPB Q8HR [facility] Rx#: [id number] Vancocin 1,500 MG In 250 / 250 Dextrose 5% 250 ML @ 166. 67 mls/hr IVPB Q24H [facility] Rx#:[id number] Oral 240 / 240 0 / 0 360 / 360 Output: Catheter 0 / 0 1075 / 1075 300 / 300 Gastric Drainage 650 / 650 550 / 550 500 / 500 Wound Drainage 57 / 57 50 / 50 30 / 30 Abdomen 25 / 25 0 / 0 Left Lower Abdomen 30 / 30 40 / 40 10 / 10 Right Lower Abdomen 2 / 2 10 / 10 20 / 20 Other: Meal NPO NPO Percent of Meal Consumed 0% 0% Weight 84.7 kg Blood Glucose* 247 177 170 Patient Weight 10/13/16 23:59 Weight 84.7 kg - I&O's I&O's: Intake & Output 10/10/16 10/11/16 10/12/16 10/13/16 23:59 23:59 23:59 23:59 Intake Total 1700 / 1700 2624 / 2624 2840 / 2840 2624 / 2624 Output Total 1665 / 1665 1645 / 1645 1844 / 1844 2505 / 2505 Balance 35 / 35 979 / 979 996 / 996 119 / 119 Weight 86.4 kg 85.5 kg 84.2 kg 84.7 kg - Exam Lungs: bilateral: normal Chest: Normal S1, Normal S2 Extremities: Present: normal Abdomen: Present: other (less distended and less tender, incisions look good) Incision OB: Present: other (wound vac in place and functioning) - Labs Labs: Abnormal lab results WBC 12.6 K/mcL (4.3-11.1) H 10/13/16 11:03 RBC 2.69 M/mcL (3.82-4.97) L 10/13/16 11:03 Hgb 9.0 g/dL (11.5-15.4) L D 10/13/16 11:03 Hct 26.9 % (35.3-44.9) L 10/13/16 11:03 MCH 33.5 pg (28.0-33.3) H 10/13/16 11:03 Band Neutrophils % 19.0 % (0-4) H 10/12/16 03:40 Neutrophils # 10.5 K/mcL (1.6-8.9) H 10/13/16 11:03 Reactive Lymphocytes Present (Not Present) A 10/11/16 05:15 Dohle Bodies Present (Not Present) A 10/10/16 03:39 Polychromasia 1+ (Not Present) A 10/10/16 03:39 Anisocytosis 1+ (Not Present) A 10/10/16 03:39 Sodium 135 mEq/L (136-145) L 10/13/16 11:03 Potassium 3.2 mEq/L (3.5-4.5) L 10/13/16 11:03 BUN 37 mg/dL (7-20) H D 10/13/16 11:03 Creatinine 1.54 mg/dL (0.57-1.11) H 10/13/16 11:03 Est GFR ( Amer) 41 (> 60) L 10/13/16 11:03 Est GFR (Non-Af Amer) 34 (> 60) L 10/13/16 11:03 Glucose 169 mg/dL (70-99) H 10/13/16 11:03 POC Glucose 170 (58-89) H 10/13/16 11:14 Calcium 7.5 mg/dL (8.6-10.8) L 10/13/16 11:03 Prealbumin 5.0 mg/dL (16.0-38.0) L 10/12/16 12:32 Triglycerides 220 mg/dL (< 150) H 10/12/16 12:32 Consult Discharge Plan - Plan Referrals: Michael Negron MD [Partnered Physician] - 10/19/16 10:35 am Alda Arroyo MD [Primary Care Provider] -
[2016-10-13] MEDS ORDERED: Potassium Chloride 40 MEQ, Lidocaine 1% 2 ML in D5% in Water 500 ML IVPB ONE (15:03)
[2016-10-13] MEDS: 0.9 % Sodium Chloride 1,000 ML IVC SCH (15:42)
[2016-10-13] MEDS ORDERED: Clinimix E 5%-15% SOLUTION 2,000 ML with MVI, adult with vitamin K 10 ML IV SCH (17:00)
[2016-10-13] MEDS: Vancomycin 1,500 MG in D5% in Water 250 ML IVPB SCH (20:48)
[2016-10-14] MEDS: Insulin LISPRO 300 UNITS/3 ML VIAL SQ SCH ×6 (00:28→21:22)
[2016-10-14] MEDS: Piperacillin/Tazobactam 3.375 GM in D5% in Water (Mini-Bag+) 100 ML IVPB SCH ×3 (00:29→15:35)
[2016-10-14] MEDS: Acetaminophen IV 1,000 MG/100 ML INFUS..BTL IVPB SCH ×3 (03:24→15:38)
[2016-10-14] MEDS: *HR* Heparin 5,000 UNIT/ML VIAL SQ SCH ×2 (03:25→16:59)
[2016-10-14] MEDS: *HR* HYDROmorphone 20 MG/20 ML PCA IVC PRN (03:26)
[2016-10-14 05:47] LABS: Basophils % 0.3 %; Eosinophils # 0.2 K/mcL (0.0-0.6); Hematocrit 24.9 % (35.3-44.9); Hemoglobin 8.2 g/dL (11.5-15.4); Immature Granulocytes % 4.9 % (0-4); Lymphocytes # 0.9 K/mcL (0.6-4.6); Lymphocytes % 8.3 %; Mean Corpuscular HGB Conc 32.9 g/dL (31.6-35.5); Mean Corpuscular Hemoglobin 33.3 pg (28.0-33.3); Mean Corpuscular Volume 101.2 fL (83.0-100.0); Mean Platelet Volume 9.7 fL (9.4-12.4); Monocytes # 0.9 K/mcL (0.0-1.3); Monocytes % 7.8 %; Neutrophils # 8.6 K/mcL (1.6-8.9); Platelet Count 154 K/mcL (140-400); Red Blood Count 2.46 M/mcL (3.82-4.97); Red Cell Distribution Width 13.9 % (11.5-14.5); Segmented Neutrophils % 76.7 %
[2016-10-14 06:05] LABS: Magnesium 2.2 mg/dL (1.6-2.6); Phosphorous 2.7 mg/dL (2.3-4.7)
[2016-10-14 06:20] LABS: Calcium 7.6 mg/dL (8.6-10.8); Potassium 3.3 mEq/L (3.5-4.5)
[2016-10-14] MEDS ORDERED: Potassium Chloride 40 MEQ, Lidocaine 1% 2 ML in D5% in Water 500 ML IVPB ONE (07:19)
--- NOTE | 2016-10-14 07:43 | General Surgery Progress Note ---
<Genet Garcia - Last Filed: 10/14/16 11:52> Date of Encounter: 10/14/16 Time of Encounter: 07:41 - Assessment and Plan (1) Perforated abdominal viscus Current Visit: Yes Status: Acute POD #3 Exploratory laparotomy, lysis of adhesions, ileocectomy, wound vac placement with Dr. 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- FINGER LIFT OPERATOR Wound vac to Midline- change every MWF per surgery team TPN Total fluid rate 110ml/hour (MIV + TPN) Repeat AM labs Incentive Spirometer every 1 hour while awake Increase activity as tolerated (2) Pelvic prolapse Current Visit: Yes Status: Acute POD #5 s/p exp lap with DARLENE, ant repair and TVT Qualifiers: Prolapse type: other female genital prolapse Qualified Code(s): N81.89 - Other female genital prolapse; N81.8 - Other female genital prolapse (3) Hypokalemia Current Visit: Yes Status: Acute K 3.3 this AM repleted repeat AM labs (4) Leukocytosis Current Visit: Yes Status: Acute improved 12.6>11.2 peritoneal culture final result no growth IV antibiotics - Vancomycin and Zosyn repeat AM labs Qualifiers: Leukocytosis type: bandemia Qualified Code(s): D72.825 - Bandemia (5) Acute kidney injury Current Visit: Yes Status: Acute improved Cr 1.66>1.54>1.19 Continue IV fluids Avoid nephrotoxic medications Lay cateter to SD for strict I&Os Repeat AM labs (6) Hyperglycemia Current Visit: Yes Status: Acute high dose scale sliding scale q4hr Will continue to monitor and adjust as necessary (7) DVT prophylaxis Current Visit: Yes Status: Acute Heparin 5,000 units SQ twice daily for DVT prophylaxis EPCDs bilateral lower extremities for DVT prophylaxis Subjective Patient reports: feels better, still having pain (post-op), pain is less, no flatus, no bowel movement, afebrile Objective Vital Signs - Last 8 Hours Temp Pulse Resp BP Pulse Ox 10/14/16 07:22 97.8 F 75 17 154/82 98 10/14/16 07:05 98 10/14/16 03:53 98.2 F 72 17 109/63 98 10/14/16 00:22 98.0 F 70 16 98/59 98 Intake and Output 10/13/16 10/13/16 10/14/16 15:59 23:59 07:59 Intake Total 1592 / 1592 1326 / 1326 450 / 450 Output Total 1460 / 1460 1220 / 1220 1250 / 1250 Balance 132 / 132 106 / 106 -800 / -800 Intake: IV Fluids 1232 / 1232 1206 / 1206 450 / 450 Clinimix E 5%-15% 311 / 311 234 / 234 SOLUTION 2,000 ML @ 50 mls/hr IV .Q24H [facility] with M.v.i. Adult 10 ml Rx#: [id number] 0.9 % Sodium Chloride 1, 621 / 621 000 ML @ 110 mls/hr IVC . Q9H6M [facility] Rx#:[id number] Ofirmev 1,000 mg In 100 200 / 200 100 / 100 100 / 100 ml @ 400 mls/hr IVPB Q6H [facility] Rx#:[id number] Intralipid 20% 250 ML @ 250 / 250 21 mls/hr IVPB DAILY@1700 [facility] Rx#:[id number] Zosyn 3.375 GM In 100 / 100 100 / 100 100 / 100 Dextrose 5% (Minibag+) 100 ML 100 ML @ 25 mls/hr IVPB Q8HR [facility] Rx#: [id number] KCl 40 MEQ Xylocaine 2 ML 522 / 522 In Dextrose 5% 500 ML @ 130.5 mls/hr IVPB ONCE ONE Rx#:[id number] Vancocin 1,500 MG In 250 / 250 Dextrose 5% 250 ML @ 166. 67 mls/hr IVPB Q24H [facility] Rx#:[id number] Oral 360 / 360 120 / 120 Output: Catheter 900 / 900 700 / 700 600 / 600 Gastric Drainage 500 / 500 400 / 400 600 / 600 Wound Drainage 60 / 60 120 / 120 50 / 50 Abdomen 30 / 30 20 / 20 0 / 0 Left Lower Abdomen 10 / 10 70 / 70 40 / 40 Right Lower Abdomen 20 / 20 30 / 30 10 / 10 Other: Meal NPO NPO Percent of Meal Consumed 0% 0% Weight 85.13 kg Blood Glucose* 137 194 177 Patient Weight 10/14/16 23:59 Weight 85.13 kg - General physical appearance well developed, well nourished, no distress - Eyes normal ocular movement - ENT normal mucosa, atraumatic, normocephalic - Neck Neck exam: trachea midline - Respiratory normal respiratory effort, clear to auscultation - Cardiovascular Cardiovascular exam: Present: RRR - Abdomen Abdomen: Present: bowel sounds present, soft, tender (post-op), wound (Midline and lower abdomen with wound vac in place (100ml of serousang. drainage noted); RLQ MANUEL #1 with serousang. drainage noted (60ml previous 24 hrs); LLQ MANUEL #2 with serousang. drainage noted (120ml previous 24 hrs); NG tube to LIWS (1450ml previous 24 hrs)) - Incision Incision: Present: open (Wound vac in place with 100ml of serousang. drainage ( since surgery)) - Genitourinary other (Lay catheter to SD with amador yellow urine (2,675 previous 24 hrs)) - Integumentary no rash - Neurologic CN 2-12 grossly intact - Psychiatric oriented to time, oriented to person, oriented to place, speech is normal, memory intact - Labs 10/14/16 05:17 10/14/16 05:17 Diabetes panel 10/13/16 10/14/16 Range/Units 11:03 05:17 Sodium 135 L 136 (136-145) mEq/L Potassium 3.2 L 3.3 L (3.5-4.5) mEq/L Chloride 103 103 (98-109) mEq/L Carbon Dioxide 26 26 (19-29) mEq/L BUN 37 H D 35 H (7-20) mg/dL Creatinine 1.54 H 1.19 H (0.57-1.11) mg/dL Glucose 169 H 160 H (70-99) mg/dL Calcium 7.5 L 7.6 L (8.6-10.8) mg/dL Calcium panel 10/13/16 10/13/16 10/14/16 Range/Units 11:03 11:03 05:17 Calcium 7.5 L 7.6 L (8.6-10.8) mg/dL Phosphorus 2.3 2.7 (2.3-4.7) mg/dL Pituitary panel 10/13/16 10/14/16 Range/Units 11:03 05:17 Sodium 135 L 136 (136-145) mEq/L Potassium 3.2 L 3.3 L (3.5-4.5) mEq/L Chloride 103 103 (98-109) mEq/L Carbon Dioxide 26 26 (19-29) mEq/L BUN 37 H D 35 H (7-20) mg/dL Creatinine 1.54 H 1.19 H (0.57-1.11) mg/dL Glucose 169 H 160 H (70-99) mg/dL Calcium 7.5 L 7.6 L (8.6-10.8) mg/dL Adrenal panel 10/13/16 10/14/16 Range/Units 11:03 05:17 Sodium 135 L 136 (136-145) mEq/L Potassium 3.2 L 3.3 L (3.5-4.5) mEq/L Chloride 103 103 (98-109) mEq/L Carbon Dioxide 26 26 (19-29) mEq/L BUN 37 H D 35 H (7-20) mg/dL Creatinine 1.54 H 1.19 H (0.57-1.11) mg/dL Glucose 169 H 160 H (70-99) mg/dL Calcium 7.5 L 7.6 L (8.6-10.8) mg/dL - VTE Documentation of Mechanical Device: Intermittent pneumatic compression device Consult Discharge Plan - Plan Referrals: Michael Negron MD [Partnered Physician] - 10/19/16 10:35 am Alda Arroyo MD [Primary Care Provider] - <Anastacio Arreguin M - Last Filed: 10/14/16 23:47> Objective Vital Signs - Last 8 Hours Temp Pulse Resp BP Pulse Ox 10/14/16 19:36 98.2 F 67 16 107/63 100 Intake and Output 10/14/16 10/14/16 10/14/16 07:59 15:59 23:59 Intake Total 450 / 450 2893 / 2893 389 / 389 Output Total 1250 / 1250 750 / 750 695 / 695 Balance -800 / -800 2143 / 2143 -306 / -306 Intake: IV Fluids 450 / 450 2893 / 2893 389 / 389 Clinimix E 5%-15% 1621 / 1621 389 / 389 SOLUTION 2,000 ML @ 83.3 mls/hr IV .Q24H [facility] with M.v.i. Adult 10 ml Rx#: [id number] 0.9 % Sodium Chloride 1, 450 / 450 000 ML @ 110 mls/hr IVC . Q9H6M [facility] Rx#:[id number] Ofirmev 1,000 mg In 100 100 / 100 200 / 200 ml @ 400 mls/hr IVPB Q6H [facility] Rx#:[id number] Intralipid 20% 250 ML @ 250 / 250 21 mls/hr IVPB DAILY@1700 [facility] Rx#:[id number] Zosyn 3.375 GM In 100 / 100 100 / 100 Dextrose 5% (Minibag+) 100 ML 100 ML @ 25 mls/hr IVPB Q8HR [facility] Rx#: [id number] KCl 40 MEQ Xylocaine 2 ML 522 / 522 In Dextrose 5% 500 ML @ 130.5 mls/hr IVPB ONCE ONE Rx#:[id number] Oral 0 / 0 Output: Gastric Tube Lavage 0 / 0 Amount Left Nare 0 / 0 Catheter 600 / 600 700 / 700 650 / 650 Gastric Drainage 600 / 600 Wound Drainage 50 / 50 50 / 50 45 / 45 Abdomen 0 / 0 0 / 0 Left Lower Abdomen 40 / 40 30 / 30 25 / 25 Right Lower Abdomen 10 / 10 20 / 20 20 / 20 Other: Meal NPO NPO Percent of Meal Consumed 0% Weight 85.13 kg Blood Glucose* 177 121 159 Patient Weight 10/14/16 23:59 Weight 85.13 kg - Labs 10/14/16 05:17 10/14/16 05:17 Diabetes panel 10/14/16 Range/Units 05:17 Sodium 136 (136-145) mEq/L Potassium 3.3 L (3.5-4.5) mEq/L Chloride 103 (98-109) mEq/L Carbon Dioxide 26 (19-29) mEq/L BUN 35 H (7-20) mg/dL Creatinine 1.19 H (0.57-1.11) mg/dL Glucose 160 H (70-99) mg/dL Calcium 7.6 L (8.6-10.8) mg/dL Calcium panel 10/14/16 Range/Units 05:17 Calcium 7.6 L (8.6-10.8) mg/dL Phosphorus 2.7 (2.3-4.7) mg/dL Pituitary panel 10/14/16 Range/Units 05:17 Sodium 136 (136-145) mEq/L Potassium 3.3 L (3.5-4.5) mEq/L Chloride 103 (98-109) mEq/L Carbon Dioxide 26 (19-29) mEq/L BUN 35 H (7-20) mg/dL Creatinine 1.19 H (0.57-1.11) mg/dL Glucose 160 H (70-99) mg/dL Calcium 7.6 L (8.6-10.8) mg/dL Adrenal panel 10/14/16 Range/Units 05:17 Sodium 136 (136-145) mEq/L Potassium 3.3 L (3.5-4.5) mEq/L Chloride 103 (98-109) mEq/L Carbon Dioxide 26 (19-29) mEq/L BUN 35 H (7-20) mg/dL Creatinine 1.19 H (0.57-1.11) mg/dL Glucose 160 H (70-99) mg/dL Calcium 7.6 L (8.6-10.8) mg/dL - Attending Attestation I examined this patient and my medical decision-making was reviewed with the TOWER OPERATOR/PA/Advanced Practice Nurse/Resident Physician. I agree with the documented findings, disposition and treatment plan as described except to the extent set forth below. With the above assessment and evaluation. Agree with the above assessment and plan. Dr. Hopkins to return on 10/15/2016.
[2016-10-14] MEDS: Pantoprazole 40 MG VIAL IVP SCH (08:21)
[2016-10-14] MEDS: Erythromycin OPTH Oint RIGHT EYE SCH ×3 (08:21→21:21)
[2016-10-14] MEDS: 0.9 % Sodium Chloride 1,000 ML IVC SCH (14:31)
[2016-10-14] MEDS ORDERED: Clinimix E 5%-15% SOLUTION 2,000 ML with MVI, adult with vitamin K 10 ML IV SCH (17:00)
--- NOTE | 2016-10-14 20:04 | OB/GYN Progress Note ---
Date of Encounter: 10/14/16 Time of Encounter: 20:02 - Assessment and Plan (1) Pelvic prolapse Current Visit: Yes Status: Acute Pt POD #6 s/p exp lap with PONCHO, ant repair and TVT. POD # 3 s/p repair of bowel injury and removal of TVT. Overall status is stable Qualifiers: Prolapse type: other female genital prolapse Qualified Code(s): N81.89 - Other female genital prolapse; N81.8 - Other female genital prolapse (2) Postoperative generalized abdominal pain Current Visit: Yes Status: Acute Pain control good with INTERNAL AUDIT DIRECTOR (3) Perforated abdominal viscus Current Visit: Yes Status: Acute Pt POD # 2 s/p repair, progressing well, appropriate serosangonous MANUEL drainage, wounds look good with wound vac in place (4) Acute kidney injury Current Visit: Yes Status: Acute UOP good and urine is clear, creat improving, excellent uop (5) DVT prophylaxis Current Visit: Yes Status: Acute (6) Leukocytosis Current Visit: Yes Status: Acute WBC stable, pt afebirle, Remains on vanc and gent. cultures obtained from intraop are negative. Qualifiers: Leukocytosis type: bandemia Qualified Code(s): D72.825 - Bandemia Subjective - Subjective Principal diagnosis: pod # 3 s/p repair of bowel injury, pod # 6 s/p ant repair , tvt and poncho Interval history: Still c/o incional pain, controlled with INTERNAL AUDIT DIRECTOR. No nausea but no flatus. No other c/o. Objective - Vital Signs Latest vital signs: Vital Signs Temp Pulse Resp BP Pulse Ox 10/14/16 19:36 98.2 F 67 16 107/63 100 10/14/16 15:13 98.9 F 71 17 123/71 99 10/14/16 10:13 98.2 F 71 17 112/70 97 10/14/16 07:22 97.8 F 75 17 154/82 98 10/14/16 07:05 98 10/14/16 03:53 98.2 F 72 17 109/63 98 10/14/16 00:22 98.0 F 70 16 98/59 98 Intake and Output 10/14/16 10/14/16 10/14/16 07:59 15:59 23:59 Intake Total 450 / 450 2893 / 2893 389 / 389 Output Total 1250 / 1250 750 / 750 695 / 695 Balance -800 / -800 2143 / 2143 -306 / -306 Intake: IV Fluids 450 / 450 2893 / 2893 389 / 389 Clinimix E 5%-15% 1621 / 1621 389 / 389 SOLUTION 2,000 ML @ 83.3 mls/hr IV .Q24H [facility] with M.v.i. Adult 10 ml Rx#: [id number] 0.9 % Sodium Chloride 1, 450 / 450 000 ML @ 110 mls/hr IVC . Q9H6M [facility] Rx#:[id number] Ofirmev 1,000 mg In 100 100 / 100 200 / 200 ml @ 400 mls/hr IVPB Q6H [facility] Rx#:[id number] Intralipid 20% 250 ML @ 250 / 250 21 mls/hr IVPB DAILY@1700 [facility] Rx#:[id number] Zosyn 3.375 GM In 100 / 100 100 / 100 Dextrose 5% (Minibag+) 100 ML 100 ML @ 25 mls/hr IVPB Q8HR [facility] Rx#: [id number] KCl 40 MEQ Xylocaine 2 ML 522 / 522 In Dextrose 5% 500 ML @ 130.5 mls/hr IVPB ONCE ONE Rx#:[id number] Oral 0 / 0 Output: Gastric Tube Lavage 0 / 0 Amount Left Nare 0 / 0 Catheter 600 / 600 700 / 700 650 / 650 Gastric Drainage 600 / 600 Wound Drainage 50 / 50 50 / 50 45 / 45 Abdomen 0 / 0 0 / 0 Left Lower Abdomen 40 / 40 30 / 30 25 / 25 Right Lower Abdomen 10 / 10 20 / 20 20 / 20 Other: Meal NPO NPO Percent of Meal Consumed 0% Weight 85.13 kg Blood Glucose* 177 121 159 Patient Weight 10/14/16 23:59 Weight 85.13 kg - I&O's I&O's: Intake & Output 10/11/16 10/12/16 10/13/16 10/14/16 23:59 23:59 23:59 23:59 Intake Total 2624 / 2624 2840 / 2840 4294 / 4294 3732 / 3732 Output Total 1645 / 1645 1844 / 1844 4355 / 4355 2695 / 2695 Balance 979 / 979 996 / 996 -61 / -61 1037 / 1037 Weight 85.5 kg 84.2 kg 84.7 kg 85.13 kg - Exam Lungs: bilateral: normal Chest: Normal S1, Normal S2 Extremities: Present: normal Abdomen: Present: soft, other (Hypoactive bs, incisions without redness, drains with serosangonous drainage) Incision OB: Present: other (wound vac in place) - Labs Labs: Abnormal lab results WBC 11.2 K/mcL (4.3-11.1) H 10/14/16 05:17 RBC 2.46 M/mcL (3.82-4.97) L 10/14/16 05:17 Hgb 8.2 g/dL (11.5-15.4) L 10/14/16 05:17 Hct 24.9 % (35.3-44.9) L 10/14/16 05:17 MCV 101.2 fL (83.0-100.0) H 10/14/16 05:17 Immature Gran % 4.9 % (0-4) H 10/14/16 05:17 Band Neutrophils % 19.0 % (0-4) H 10/12/16 03:40 Reactive Lymphocytes Present (Not Present) A 10/11/16 05:15 Dohle Bodies Present (Not Present) A 10/10/16 03:39 Polychromasia 1+ (Not Present) A 10/10/16 03:39 Anisocytosis 1+ (Not Present) A 10/10/16 03:39 Potassium 3.3 mEq/L (3.5-4.5) L 10/14/16 05:17 BUN 35 mg/dL (7-20) H 10/14/16 05:17 Creatinine 1.19 mg/dL (0.57-1.11) H 10/14/16 05:17 Est GFR ( Amer) 56 (> 60) L 10/14/16 05:17 Est GFR (Non-Af Amer) 46 (> 60) L 10/14/16 05:17 BUN/Creatinine Ratio 29 (6-26) H 10/14/16 05:17 Glucose 160 mg/dL (70-99) H 10/14/16 05:17 POC Glucose 159 (58-89) H 10/14/16 19:44 Calcium 7.6 mg/dL (8.6-10.8) L 10/14/16 05:17 Prealbumin 5.0 mg/dL (16.0-38.0) L 10/12/16 12:32 Triglycerides 220 mg/dL (< 150) H 10/12/16 12:32 Consult Discharge Plan - Plan Referrals: Michael Negron MD [Partnered Physician] - 10/19/16 10:35 am Alda Arroyo MD [Primary Care Provider] -
[2016-10-14] MEDS: Vancomycin 1,500 MG in D5% in Water 250 ML IVPB SCH (22:31)
[2016-10-15] MEDS: Piperacillin/Tazobactam 3.375 GM in D5% in Water (Mini-Bag+) 100 ML IVPB SCH ×3 (00:21→18:39)
[2016-10-15] MEDS: Insulin LISPRO 300 UNITS/3 ML VIAL SQ SCH ×6 (01:29→21:00)
[2016-10-15] MEDS: *HR* Heparin 5,000 UNIT/ML VIAL SQ SCH ×2 (05:02→18:32)
[2016-10-15 05:52] LABS: Magnesium 2.1 mg/dL (1.6-2.6); Phosphorous 2.7 mg/dL (2.3-4.7)
[2016-10-15 08:07] LABS: Hematocrit 28.6 % (35.3-44.9); Hemoglobin 9.4 g/dL (11.5-15.4); Mean Corpuscular HGB Conc 32.9 g/dL (31.6-35.5); Mean Corpuscular Hemoglobin 32.9 pg (28.0-33.3); Mean Platelet Volume 9.4 fL (9.4-12.4); Platelet Count 193 K/mcL (140-400); Red Blood Count 2.86 M/mcL (3.82-4.97); Red Cell Distribution Width 13.5 % (11.5-14.5)
[2016-10-15 08:25] LABS: Anisocytosis 2+ (Not Present); Eosinophils # 0.7 K/mcL (0.0-0.6); Lymphocytes # 1.3 K/mcL (0.6-4.6); Monocytes # 0.7 K/mcL (0.0-1.3); Neutrophils # 8.4 K/mcL (1.6-8.9); Platelet Estimate Normal (Normal); Smudge Cells Present (Not Present)
[2016-10-15 08:32] LABS: BUN/Creatinine Ratio 34 (6-26); Blood Urea Nitrogen 32 mg/dL (7-20); Carbon Dioxide 24 mEq/L (19-29); Chloride 106 mEq/L (98-109); Glucose 129 mg/dL (70-99); Osmolality,Calculated 295 (280-300); Potassium 3.4 mEq/L (3.5-4.5); Sodium 138 mEq/L (136-145); eGFR For African Americans > 60 (> 60); eGFR For Non-African Americans 60 (> 60)
[2016-10-15] MEDS: Pantoprazole 40 MG VIAL IVP SCH (08:53)
[2016-10-15] MEDS: Ondansetron 4 MG/2 ML VIAL IVP PRN ×2 (08:53→18:30)
[2016-10-15] MEDS: Erythromycin OPTH Oint RIGHT EYE SCH ×3 (09:03→23:07)
--- NOTE | 2016-10-15 10:17 | General Surgery Progress Note ---
<Anthony Kaur - Last Filed: 10/15/16 18:02> Date of Encounter: 10/15/16 Time of Encounter: 09:50 - Assessment and Plan (1) Perforated abdominal viscus Current Visit: Yes Status: Acute POD #4 Exploratory laparotomy, lysis of adhesions, ileocectomy, wound vac placement with Dr. 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 Patient received 40meq yesterday, will replete again today. Spoke with dietitian, will adjust K+ in TPN if needed tomorrow. (4) Leukocytosis Current Visit: Yes Status: Acute improved 11.2>9.4 peritoneal culture final result no growth IV antibiotics - Vancomycin and Zosyn repeat AM labs Qualifiers: Leukocytosis type: bandemia Qualified Code(s): D72.825 - Bandemia (5) Hyperglycemia Current Visit: Yes Status: Acute high dose scale sliding scale q4hr Will continue to monitor and adjust as necessary (6) Acute kidney injury Current Visit: Yes Status: Acute improved Cr 1.66>1.54>1.19>0.95 Continue IV fluids Avoid nephrotoxic medications Lay cateter to SD for strict I&Os Repeat AM labs (7) DVT prophylaxis Current Visit: Yes Status: Acute Heparin 5,000 units SQ twice daily for DVT prophylaxis EPCDs bilateral lower extremities for DVT prophylaxis Subjective Patient reports: no new complaints, still having pain (surgical), no flatus, no bowel movement, afebrile Objective Vital Signs - Last 8 Hours Temp Pulse Resp BP Pulse Ox 10/15/16 07:10 98.2 F 76 14 111/63 99 10/15/16 04:17 98.0 F 82 17 122/71 100 Intake and Output 10/14/16 10/15/16 10/15/16 23:59 07:59 15:59 Intake Total 489 / 489 350 / 350 Output Total 695 / 695 1234 / 1234 Balance -206 / -206 -884 / -884 Intake: IV Fluids 489 / 489 350 / 350 Clinimix E 5%-15% 389 / 389 SOLUTION 2,000 ML @ 83.3 mls/hr IV .Q24H [facility] with M.v.i. Adult 10 ml Rx#: [id number] Zosyn 3.375 GM In 100 / 100 100 / 100 Dextrose 5% (Minibag+) 100 ML 100 ML @ 25 mls/hr IVPB Q8HR [facility] Rx#: [id number] Vancocin 1,500 MG In 250 / 250 Dextrose 5% 250 ML @ 166. 67 mls/hr IVPB Q24H [facility] Rx#:[id number] Output: Catheter 650 / 650 900 / 900 Gastric Drainage 250 / 250 Wound Drainage 45 / 45 84 / 84 Left Lower Abdomen 25 / 25 64 / 64 Right Lower Abdomen 20 / 20 20 / 20 Other: Meal NPO Blood Glucose* 159 128 - General physical appearance well developed, well nourished, moderate pain - Neck Neck exam: trachea midline - Respiratory normal respiratory effort, clear to auscultation - Cardiovascular Cardiovascular exam: Present: RRR - Abdomen Abdomen: Present: soft, tender (expected post-operative tenderness), wound ( midline and lower abdomen with would vac in place.) Additional Comments: RLQ MANUEL #1 with serousang. drainage noted (50ml previous 24 hrs); LLQ MANUEL #2 with serousang. drainage noted (95ml previous 24 hrs); NG tube to LIWS (600ml previous 24 hrs)) - Integumentary no rash - Psychiatric speech is normal, memory intact - Labs 10/15/16 07:57 10/15/16 07:57 Diabetes panel 10/15/16 10/15/16 Range/Units 04:39 07:57 Sodium 138 (136-145) mEq/L Potassium 3.4 L (3.5-4.5) mEq/L Chloride 106 (98-109) mEq/L Carbon Dioxide 24 (19-29) mEq/L BUN 32 H (7-20) mg/dL Creatinine 0.95 (0.57-1.11) mg/dL Glucose 129 H (70-99) mg/dL Calcium 8.0 L (8.6-10.8) mg/dL Triglycerides 225 H (< 150) mg/dL Calcium panel 10/15/16 10/15/16 Range/Units 04:39 07:57 Calcium 8.0 L (8.6-10.8) mg/dL Phosphorus 2.7 (2.3-4.7) mg/dL Pituitary panel 10/15/16 Range/Units 07:57 Sodium 138 (136-145) mEq/L Potassium 3.4 L (3.5-4.5) mEq/L Chloride 106 (98-109) mEq/L Carbon Dioxide 24 (19-29) mEq/L BUN 32 H (7-20) mg/dL Creatinine 0.95 (0.57-1.11) mg/dL Glucose 129 H (70-99) mg/dL Calcium 8.0 L (8.6-10.8) mg/dL Adrenal panel 10/15/16 Range/Units 07:57 Sodium 138 (136-145) mEq/L Potassium 3.4 L (3.5-4.5) mEq/L Chloride 106 (98-109) mEq/L Carbon Dioxide 24 (19-29) mEq/L BUN 32 H (7-20) mg/dL Creatinine 0.95 (0.57-1.11) mg/dL Glucose 129 H (70-99) mg/dL Calcium 8.0 L (8.6-10.8) mg/dL - VTE Documentation of Mechanical Device: Intermittent pneumatic compression device Consult Discharge Plan - Plan Referrals: Michael Negron MD [Partnered Physician] - 10/19/16 10:35 am Alda Arroyo MD [Primary Care Provider] - <Traci Hopkins - Last Filed: 10/16/16 13:56> Time of Encounter: 13:55 - Assessment and Plan (1) Leukocytosis Current Visit: Yes Status: Acute wbc normal, continue Abx Qualifiers: Leukocytosis type: bandemia Qualified Code(s): D72.825 - Bandemia (2) Perforated abdominal viscus Current Visit: Yes Status: Acute await return of bowel function, post op ileus is a expected result contnue 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 Q9H6M [facility] Rx#:[id number] Intralipid 20% 250 ML @ 250 / 250 21 mls/hr IVPB MoWeFr@ 1700 [facility] Rx#:[id number] Zosyn 3.375 GM In 100 / 100 100 / 100 Dextrose 5% (Minibag+) 100 ML 100 ML @ 25 mls/hr IVPB Q8HR [facility] Rx#: [id number] Vancocin 1,500 MG In 250 / 250 Dextrose 5% 250 ML @ 166. 67 mls/hr IVPB Q24H [facility] Rx#:[id number] Oral 60 / 60 0 / 0 0 / 0 Output: Catheter 900 / 900 1000 / 1000 400 / 400 Gastric Drainage 250 / 250 400 / 400 Wound Drainage 30 / 30 20 / 20 70 / 70 Abdomen 50 / 50 Left Lower Abdomen 20 / 20 20 / 20 20 / 20 Right Lower Abdomen 10 / 10 0 / 0 0 / 0 Other: Meal NPO for breakfast NPO Percent of Meal Consumed 0% Blood Glucose* 150 121 139 - General physical appearance well nourished, no distress, moderate pain - Eyes PERRL, normal ocular movement - ENT normal mucosa, normocephalic - Neck Neck exam: trachea midline - Respiratory normal expansion, clear to auscultation - Cardiovascular Cardiovascular exam: Present: RRR - Abdomen Abdomen: Present: soft, tender. Absent: bowel sounds present, guarding, rebound - Integumentary no rash, no growths - Neurologic CN 2-12 grossly intact - Musculoskeletal normal posture - Psychiatric oriented to time, oriented to person, oriented to place, speech is normal, memory intact - Labs 10/16/16 05:00 10/16/16 05:00 Diabetes panel 10/16/16 Range/Units 05:00 Sodium 139 (136-145) mEq/L Potassium 3.3 L (3.5-4.5) mEq/L Chloride 105 (98-109) mEq/L Carbon Dioxide 26 (19-29) mEq/L BUN 29 H (7-20) mg/dL Creatinine 0.92 (0.57-1.11) mg/dL Glucose 140 H (70-99) mg/dL Calcium 7.9 L (8.6-10.8) mg/dL Calcium panel 10/16/16 Range/Units 05:00 Calcium 7.9 L (8.6-10.8) mg/dL Pituitary panel 10/16/16 Range/Units 05:00 Sodium 139 (136-145) mEq/L Potassium 3.3 L (3.5-4.5) mEq/L Chloride 105 (98-109) mEq/L Carbon Dioxide 26 (19-29) mEq/L BUN 29 H (7-20) mg/dL Creatinine 0.92 (0.57-1.11) mg/dL Glucose 140 H (70-99) mg/dL Calcium 7.9 L (8.6-10.8) mg/dL Adrenal panel 10/16/16 Range/Units 05:00 Sodium 139 (136-145) mEq/L Potassium 3.3 L (3.5-4.5) mEq/L Chloride 105 (98-109) mEq/L Carbon Dioxide 26 (19-29) mEq/L BUN 29 H (7-20) mg/dL Creatinine 0.92 (0.57-1.11) mg/dL Glucose 140 H (70-99) mg/dL Calcium 7.9 L (8.6-10.8) mg/dL
[2016-10-15] MEDS ORDERED: D10% in Water 500 ML IV PRN (10:24)
[2016-10-15] MEDS ORDERED: Potassium Chloride 40 MEQ, Lidocaine 1% 2 ML in D5% in Water 500 ML IVPB ONE (11:42)
[2016-10-15] MEDS ORDERED: *HR* Alteplase (Cathflo) 2 MG VIAL IVP ONE (11:58)
[2016-10-15] MEDS: *HR* HYDROmorphone 20 MG/20 ML PCA IVC PRN (13:09)
--- NOTE | 2016-10-15 13:42 | OB/GYN Progress Note ---
Date of Encounter: 10/15/16 Time of Encounter: 13:40 - Assessment and Plan (1) Pelvic prolapse Current Visit: Yes Status: Acute Pt POD #7 s/p exp lap with DARLENE, ant repair and TVT. POD # 4 s/p repair of bowel injury and removal of TVT. Overall status is stable Qualifiers: Prolapse type: other female genital prolapse Qualified Code(s): N81.89 - Other female genital prolapse; N81.8 - Other female genital prolapse (2) Postoperative generalized abdominal pain Current Visit: Yes Status: Acute Pain control good with INTERMOD[employer] CUSTOMER SERVICE (3) Perforated abdominal viscus Current Visit: Yes Status: Acute Pt POD # 3 s/p repair, progressing well, appropriate serosangonous MANUEL drainage, wounds look good with wound vac in place Having more nausea, still with NG drainage and no flatus (4) Acute kidney injury Current Visit: Yes Status: Acute UOP good and urine is clear, creat improving, excellent uop Creatinine now normal (5) DVT prophylaxis Current Visit: Yes Status: Acute (6) Leukocytosis Current Visit: Yes Status: Acute WBC improving, pt afebirle, Remains on vanc and gent. cultures obtained from intraop are negative. Qualifiers: Leukocytosis type: bandemia Qualified Code(s): D72.825 - Bandemia Subjective - Subjective Principal diagnosis: s/p ant repair, TVT and DARLENE, followed by bowel repair and tVT removal Interval history: Pt with more nausea today, no flatus. States NG wasn't functional for awhile. Good pain control. Patient reports: pain well controlled, appetite poor, nauseated Objective - Vital Signs Latest vital signs: Vital Signs Temp Pulse Resp BP Pulse Ox 10/15/16 11:57 98.3 F 77 16 137/70 99 10/15/16 07:10 98.2 F 76 14 111/63 99 10/15/16 04:17 98.0 F 82 17 122/71 100 10/15/16 00:13 97.4 F L 72 16 110/65 100 10/14/16 19:36 98.2 F 67 16 107/63 100 10/14/16 15:13 98.9 F 71 17 123/71 99 Intake and Output 10/14/16 10/15/16 10/15/16 23:59 07:59 15:59 Intake Total 489 / 489 350 / 350 100 / 100 Output Total 695 / 695 1234 / 1234 730 / 730 Balance -206 / -206 -884 / -884 -630 / -630 Intake: IV Fluids 489 / 489 350 / 350 100 / 100 Clinimix E 5%-15% 389 / 389 SOLUTION 2,000 ML @ 83.3 mls/hr IV .Q24H [facility] with M.v.i. Adult 10 ml Rx#: [id number] Zosyn 3.375 GM In 100 / 100 100 / 100 100 / 100 Dextrose 5% (Minibag+) 100 ML 100 ML @ 25 mls/hr IVPB Q8HR [facility] Rx#: [id number] Vancocin 1,500 MG In 250 / 250 Dextrose 5% 250 ML @ 166. 67 mls/hr IVPB Q24H [facility] Rx#:[id number] Output: Catheter 650 / 650 900 / 900 700 / 700 Gastric Drainage 250 / 250 Wound Drainage 45 / 45 84 / 84 30 / 30 Left Lower Abdomen 25 / 25 64 / 64 20 / 20 Right Lower Abdomen 20 / 20 20 / 20 10 / 10 Other: Meal NPO Blood Glucose* 159 128 145 - I&O's I&O's: Intake & Output 10/12/16 10/13/16 10/14/16 10/15/16 23:59 23:59 23:59 23:59 Intake Total 2840 / 2840 4294 / 4294 3832 / 3832 450 / 450 Output Total 1844 / 1844 4355 / 4355 2695 / 2695 1963 / 1963 Balance 996 / 996 -61 / -61 1137 / 1137 -1514 / -1514 Weight 84.2 kg 84.7 kg 85.13 kg - Exam Lungs: bilateral: normal Chest: Normal S1, Normal S2 Extremities: Present: normal Abdomen: Present: soft, other (Wound vac in place, incision edges without redness) Incision OB: Present: dry, intact - Labs Labs: Abnormal lab results RBC 2.86 M/mcL (3.82-4.97) L 10/15/16 07:57 Hgb 9.4 g/dL (11.5-15.4) L 10/15/16 07:57 Hct 28.6 % (35.3-44.9) L 10/15/16 07:57 Immature Gran % 4.9 % (0-4) H 10/14/16 05:17 Band Neutrophils % 19.0 % (0-4) H 10/12/16 03:40 Eosinophils # 0.7 K/mcL (0.0-0.6) H 10/15/16 07:57 Reactive Lymphocytes Present (Not Present) A 10/11/16 05:15 Smudge Cells Present (Not Present) A 10/15/16 07:57 Dohle Bodies Present (Not Present) A 10/10/16 03:39 Polychromasia 1+ (Not Present) A 10/10/16 03:39 Anisocytosis 2+ (Not Present) A 10/15/16 07:57 Potassium 3.4 mEq/L (3.5-4.5) L 10/15/16 07:57 BUN 32 mg/dL (7-20) H 10/15/16 07:57 BUN/Creatinine Ratio 34 (6-26) H 10/15/16 07:57 Glucose 129 mg/dL (70-99) H 10/15/16 07:57 POC Glucose 145 (58-89) H 10/15/16 12:08 Calcium 8.0 mg/dL (8.6-10.8) L 10/15/16 07:57 Prealbumin 5.0 mg/dL (16.0-38.0) L 10/12/16 12:32 Triglycerides 225 mg/dL (< 150) H 10/15/16 04:39 Consult Discharge Plan - Plan Referrals: Michael Negron MD [Partnered Physician] - 10/19/16 10:35 am Alda Arroyo MD [Primary Care Provider] -
[2016-10-15] MEDS ORDERED: *HR* Promethazine 25 MG/ML VIAL IVP PRN (14:33)
[2016-10-15] MEDS ORDERED: Clinimix E 5%-15% SOLUTION 2,000 ML with MVI, adult with vitamin K 10 ML IV SCH (17:00)
[2016-10-15] MEDS: Vancomycin 1,500 MG in D5% in Water 250 ML IVPB SCH (23:00)
[2016-10-16] MEDS: Piperacillin/Tazobactam 3.375 GM in D5% in Water (Mini-Bag+) 100 ML IVPB SCH ×3 (01:26→16:49)
[2016-10-16] MEDS: Ondansetron 4 MG/2 ML VIAL IVP PRN ×3 (01:26→16:48)
[2016-10-16] MEDS: Insulin LISPRO 300 UNITS/3 ML VIAL SQ SCH ×6 (03:44→20:19)
[2016-10-16] MEDS: 0.9 % Sodium Chloride 1,000 ML IVC SCH ×6 (03:51→16:55)
[2016-10-16 05:42] LABS: Hematocrit 25.1 % (35.3-44.9); Hemoglobin 8.6 g/dL (11.5-15.4); Immature Platelets 1.8 % (1.1-6.1); Mean Corpuscular HGB Conc 34.3 g/dL (31.6-35.5); Mean Corpuscular Hemoglobin 34.1 pg (28.0-33.3); Mean Corpuscular Volume 99.6 fL (83.0-100.0); Mean Platelet Volume 9.4 fL (9.4-12.4); Nucleated Red Blood Cells 0.2 /100 WBC (0); Platelet Count 248 K/mcL (140-400); Red Blood Count 2.52 M/mcL (3.82-4.97); Red Cell Distribution Width 13.7 % (11.5-14.5)
[2016-10-16 05:57] LABS: BUN/Creatinine Ratio 32 (6-26); Blood Urea Nitrogen 29 mg/dL (7-20); Calcium 7.9 mg/dL (8.6-10.8); Carbon Dioxide 26 mEq/L (19-29); Chloride 105 mEq/L (98-109); Eosinophils # 0.2 K/mcL (0.0-0.6); Glucose 140 mg/dL (70-99); Lymphocytes # 1.3 K/mcL (0.6-4.6); Monocytes # 0.6 K/mcL (0.0-1.3); Neutrophils # 8.5 K/mcL (1.6-8.9); Osmolality,Calculated 296 (280-300); Platelet Estimate Normal (Normal); Potassium 3.3 mEq/L (3.5-4.5); Sodium 139 mEq/L (136-145); eGFR For African Americans > 60 (> 60); eGFR For Non-African Americans > 60 (> 60)
[2016-10-16] MEDS: *HR* Heparin 5,000 UNIT/ML VIAL SQ SCH ×2 (07:40→16:48)
--- NOTE | 2016-10-16 08:01 | General Surgery Progress Note ---
<Anthony Kaur - Last Filed: 10/16/16 11:38> Date of Encounter: 10/16/16 Time of Encounter: 07:40 - Assessment and Plan (1) Perforated abdominal viscus Current Visit: Yes Status: Acute POD #5 Exploratory laparotomy, lysis of adhesions, ileocectomy, wound vac placement with Dr. 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- GRANT MANAGER, basal rate changed to 0.25mg/hr Dilaudid. Wound vac to Midline- change every MWF per surgery team TPN Total fluid rate 120ml/hour (MIV + TPN) Repeat AM labs Incentive Spirometer every 1 hour while awake Increase activity as tolerated (2) Pelvic prolapse Current Visit: Yes Status: Acute POD #7 s/p exp lap with DARLENE, ant repair and TVT Qualifiers: Prolapse type: other female genital prolapse Qualified Code(s): N81.89 - Other female genital prolapse; N81.8 - Other female genital prolapse (3) Hypokalemia Current Visit: Yes Status: Acute K+ 3.3 this AM. Patient received 40meq yesterday, will replete again today as discussed with Carito Nevarez [employer] Spoke with dietitian, in addition they will increase K+ with TPN today at 5pm. Continue to monitor I&Os, may need to d/c maintenance fluids with TPN adjustment. We will continue to monitor labs. (4) Leukocytosis Current Visit: Yes Status: Acute improved 11.1>10.6 peritoneal culture final result no growth IV antibiotics - Vancomycin and Zosyn repeat AM labs Qualifiers: Leukocytosis type: bandemia Qualified Code(s): D72.825 - Bandemia (5) Hyperglycemia Current Visit: Yes Status: Acute high dose scale sliding scale q4hr Will continue to monitor and adjust as necessary (6) Acute kidney injury Current Visit: Yes Status: Acute improved Cr 1.66>>0.95>0.92 Continue IV fluids Avoid nephrotoxic medications Marc cateter to SD for strict I&Os Repeat AM labs (7) DVT prophylaxis Current Visit: Yes Status: Acute Heparin 5,000 units SQ twice daily for DVT prophylaxis EPCDs bilateral lower extremities for DVT prophylaxis Subjective Patient reports: no new complaints, still having pain (post-op), pain is less, no flatus, no bowel movement, afebrile Objective Vital Signs - Last 8 Hours Temp Pulse Resp BP Pulse Ox 10/16/16 07:00 98.1 F 86 14 124/67 93 L 10/16/16 04:16 98.5 F 81 16 124/70 94 L 10/16/16 00:29 98.1 F 86 16 126/67 95 Intake and Output 10/15/16 10/15/16 10/16/16 15:59 23:59 07:59 Intake Total 100 / 100 160 / 160 2121 Output Total 1250 / 1250 1180 / 1180 1420 / 1420 Balance -1150 / -1150 -1020 / -1020 702 / 702 Intake: IV Fluids 100 / 100 100 / 100 2121 0.9 % Sodium Chloride 1, 1000 / 1000 000 ML @ 110 mls/hr IVC . Q9H6M [facility] Rx#:[id number] Intralipid 20% 250 ML @ 250 / 250 21 mls/hr IVPB MoWeFr@ 1700 [facility] Rx#:[id number] Zosyn 3.375 GM In 100 / 100 100 / 100 100 / 100 Dextrose 5% (Minibag+) 100 ML 100 ML @ 25 mls/hr IVPB Q8HR [facility] Rx#: [id number] Vancocin 1,500 MG In 250 / 250 Dextrose 5% 250 ML @ 166. 67 mls/hr IVPB Q24H [facility] Rx#:[id number] Oral 60 / 60 0 / 0 Output: Catheter 1150 / 1150 900 / 900 1000 / 1000 Gastric Drainage 250 / 250 400 / 400 Wound Drainage 100 / 100 30 / 30 20 / 20 Abdomen 50 / 50 Left Lower Abdomen 40 / 40 20 / 20 20 / 20 Right Lower Abdomen 10 / 10 10 / 10 0 / 0 Other: Meal NPO NPO for breakfast Blood Glucose* 148 150 121 - General physical appearance well developed, well nourished, moderate pain - Eyes normal ocular movement - ENT normal mucosa, no congestion, atraumatic, normocephalic - Neck Neck exam: trachea midline - Respiratory normal respiratory effort, clear to auscultation - Cardiovascular Cardiovascular exam: Present: RRR - Abdomen Abdomen: Present: bowel sounds present, soft, tender (post-op), wound (midline and lower abdomen with wound vac in place.) Additional Comments: RLQ MANUEL #1 with serousang. drainage noted (40ml previous 24 hrs); LLQ MANUEL #2 with serousang. drainage noted (124ml previous 24 hrs); NG tube to LIWS (500ml previous 24 hrs) - Incision Incision: Present: open - Neurologic CN 2-12 grossly intact - Psychiatric speech is normal, memory intact - Labs 10/16/16 05:00 10/16/16 05:00 Diabetes panel 10/15/16 10/16/16 Range/Units 07:57 05:00 Sodium 138 139 (136-145) mEq/L Potassium 3.4 L 3.3 L (3.5-4.5) mEq/L Chloride 106 105 (98-109) mEq/L Carbon Dioxide 24 26 (19-29) mEq/L BUN 32 H 29 H (7-20) mg/dL Creatinine 0.95 0.92 (0.57-1.11) mg/dL Glucose 129 H 140 H (70-99) mg/dL Calcium 8.0 L 7.9 L (8.6-10.8) mg/dL Calcium panel 10/15/16 10/16/16 Range/Units 07:57 05:00 Calcium 8.0 L 7.9 L (8.6-10.8) mg/dL Pituitary panel 10/15/16 10/16/16 Range/Units 07:57 05:00 Sodium 138 139 (136-145) mEq/L Potassium 3.4 L 3.3 L (3.5-4.5) mEq/L Chloride 106 105 (98-109) mEq/L Carbon Dioxide 24 26 (19-29) mEq/L BUN 32 H 29 H (7-20) mg/dL Creatinine 0.95 0.92 (0.57-1.11) mg/dL Glucose 129 H 140 H (70-99) mg/dL Calcium 8.0 L 7.9 L (8.6-10.8) mg/dL Adrenal panel 10/15/16 10/16/16 Range/Units 07:57 05:00 Sodium 138 139 (136-145) mEq/L Potassium 3.4 L 3.3 L (3.5-4.5) mEq/L Chloride 106 105 (98-109) mEq/L Carbon Dioxide 24 26 (19-29) mEq/L BUN 32 H 29 H (7-20) mg/dL Creatinine 0.95 0.92 (0.57-1.11) mg/dL Glucose 129 H 140 H (70-99) mg/dL Calcium 8.0 L 7.9 L (8.6-10.8) mg/dL - VTE Documentation of Mechanical Device: Intermittent pneumatic compression device Consult Discharge Plan - Plan Referrals: Michael Negron MD [Partnered Physician] - 10/19/16 10:35 am Alda Arroyo MD [Primary Care Provider] - <Traci Hopkins - Last Filed: 10/16/16 14:07> Time of Encounter: 13:55 - Assessment and Plan (1) Leukocytosis Current Visit: Yes Status: Acute DC vanco, continue zosyn wbc normal Qualifiers: Leukocytosis type: bandemia Qualified Code(s): D72.825 - Bandemia (2) Perforated abdominal viscus Current Visit: Yes Status: Acute await return of bowel function continue ngt decompression, dc marc continue water chaser for pain control, decreased basal rate today, pt seemed a little to sleepy continue vac changes will discuss with nutrition to concentrate water chaser, want total ivf rate at 80/hr aggressive pulmonary toliet (3) Hypokalemia Current Visit: Yes Status: Acute Subjective Patient reports: no new complaints, feels better, still having pain, pain is less, no flatus, no bowel movement, afebrile Objective Vital Signs - Last 8 Hours Temp Pulse Resp BP Pulse Ox 10/16/16 10:49 98.4 F 87 16 133/67 94 L 10/16/16 07:00 98.1 F 86 14 124/67 93 L Intake and Output 10/15/16 10/16/16 10/16/16 23:59 07:59 15:59 Intake Total 160 / 160 2121 0 / 0 Output Total 1180 / 1180 1420 / 1420 470 / 470 Balance -1020 / -1020 702 / 702 -470 / -470 Intake: IV Fluids 100 / 100 2121 / 2121 0.9 % Sodium Chloride 1, 1000 / 1000 000 ML @ 110 mls/hr IVC . Q9H6M [facility] Rx#:[id number] Intralipid 20% 250 ML @ 250 / 250 21 mls/hr IVPB MoWeFr@ 1700 [facility] Rx#:[id number] Zosyn 3.375 GM In 100 / 100 100 / 100 Dextrose 5% (Minibag+) 100 ML 100 ML @ 25 mls/hr IVPB Q8HR [facility] Rx#: [id number] Vancocin 1,500 MG In 250 / 250 Dextrose 5% 250 ML @ 166. 67 mls/hr IVPB Q24H [facility] Rx#:[id number] Oral 60 / 60 0 / 0 0 / 0 Output: Catheter 900 / 900 1000 / 1000 400 / 400 Gastric Drainage 250 / 250 400 / 400 Wound Drainage 30 / 30 20 / 20 70 / 70 Abdomen 50 / 50 Left Lower Abdomen 20 / 20 20 / 20 20 / 20 Right Lower Abdomen 10 / 10 0 / 0 0 / 0 Other: Meal NPO for breakfast NPO Percent of Meal Consumed 0% Blood Glucose* 150 121 139 - General physical appearance well developed, well nourished, no distress, moderate pain - Eyes PERRL, normal ocular movement - ENT normal mucosa, atraumatic, normocephalic - Neck Neck exam: trachea midline - Respiratory normal expansion, clear to auscultation - Cardiovascular Cardiovascular exam: Present: RRR - Abdomen Abdomen: Present: bowel sounds present, soft, tender - Integumentary no rash, no growths - Neurologic CN 2-12 grossly intact - Musculoskeletal normal posture - Psychiatric oriented to time, oriented to person, oriented to place, speech is normal - Labs 10/16/16 05:00 10/16/16 05:00 Short CBC 10/16/16 Range/Units 05:00 WBC 10.6 (4.3-11.1) K/mcL Hgb 8.6 L (11.5-15.4) g/dL Hct 25.1 L (35.3-44.9) % Plt Count 248 (140-400) K/mcL Neutrophils # 8.5 (1.6-8.9) K/mcL BMP 10/16/16 Range/Units 05:00 Sodium 139 (136-145) mEq/L Potassium 3.3 L (3.5-4.5) mEq/L Chloride 105 (98-109) mEq/L Carbon Dioxide 26 (19-29) mEq/L BUN 29 H (7-20) mg/dL Creatinine 0.92 (0.57-1.11) mg/dL Glucose 140 H (70-99) mg/dL Calcium 7.9 L (8.6-10.8) mg/dL Vital Signs Temp Pulse Resp BP Pulse Ox 10/16/16 10:49 98.4 F 87 16 133/67 94 L 10/16/16 07:00 98.1 F 86 14 124/67 93 L 10/16/16 04:16 98.5 F 81 16 124/70 94 L 10/16/16 00:29 98.1 F 86 16 126/67 95 10/15/16 20:33 98.0 F 88 16 145/75 94 L 10/15/16 15:08 98.4 F 77 14 115/68 99 Intake and Output 10/15/16 10/16/16 10/16/16 23:59 07:59 15:59 Intake Total 160 / 160 2122 / 2122 0 / 0 Output Total 1180 / 1180 1420 / 1420 470 / 470 Balance -1020 / -1020 702 / 702 -470 / -470 Intake: IV Fluids 100 / 100 2121 / 2121 0.9 % Sodium Chloride 1, 1000 / 1000 000 ML @ 110 mls/hr IVC . Q9H6M [facility] Rx#:[id number] Intralipid 20% 250 ML @ 250 / 250 21 mls/hr IVPB MoWeFr@ 1700 [facility] Rx#:[id number] Zosyn 3.375 GM In 100 / 100 100 / 100 Dextrose 5% (Minibag+) 100 ML 100 ML @ 25 mls/hr IVPB Q8HR [facility] Rx#: [id number] Vancocin 1,500 MG In 250 / 250 Dextrose 5% 250 ML @ 166. 67 mls/hr IVPB Q24H [facility] Rx#:[id number] Oral 60 / 60 0 / 0 0 / 0 Output: Catheter 900 / 900 1000 / 1000 400 / 400 Gastric Drainage 250 / 250 400 / 400 Wound Drainage 30 / 30 20 / 20 70 / 70 Abdomen 50 / 50 Left Lower Abdomen 20 / 20 20 / 20 20 / 20 Right Lower Abdomen 10 / 10 0 / 0 0 / 0 Other: Meal NPO for breakfast NPO Percent of Meal Consumed 0% Blood Glucose* 150 121 139
[2016-10-16] MEDS ORDERED: Aminoglycoside Consult 1 EACH MC ONE (08:23)
[2016-10-16] MEDS: Pantoprazole 40 MG VIAL IVP SCH (09:16)
[2016-10-16] MEDS: Erythromycin OPTH Oint RIGHT EYE SCH ×2 (09:16→16:50)
[2016-10-16] MEDS ORDERED: Potassium Chloride 40 MEQ, Lidocaine 1% 2 ML in D5% in Water 500 ML IVPB ONE (10:06)
[2016-10-16] MEDS ORDERED: *HR* HYDROmorphone 20 MG/20 ML PCA IVC PRN ×2 (11:34→14:05)
[2016-10-16] MEDS ORDERED: 0.9 % Sodium Chloride 1,000 ML IVC SCH (17:00)
[2016-10-16] MEDS ORDERED: Clinimix E 5%-15% SOLUTION 2,000 ML with MVI, adult with vitamin K 10 ML, Potassium C... IV SCH ×2 (17:00)
--- NOTE | 2016-10-16 21:25 | OB/GYN Progress Note ---
Date of Encounter: 10/16/16 Time of Encounter: 21:23 - Assessment and Plan (1) Pelvic prolapse Current Visit: Yes Status: Acute Pt POD #8s/p exp lap with PONCHO, ant repair and TVT. POD # 5 s/p repair of bowel injury and removal of TVT. Overall status is stable, getting up and voiding without difficulty. Qualifiers: Prolapse type: other female genital prolapse Qualified Code(s): N81.89 - Other female genital prolapse; N81.8 - Other female genital prolapse (2) Postoperative generalized abdominal pain Current Visit: Yes Status: Acute Pain control good with PLASTIC FRAME INSERTER (3) Perforated abdominal viscus Current Visit: Yes Status: Acute Pt POD # 5 s/p repair, progressing well, appropriate serosangonous MANUEL drainage, wounds look good with wound vac in place Having more nausea, still with NG drainage and no flatus (4) Acute kidney injury Current Visit: Yes Status: Acute UOP good and urine is clear, creat improving, excellent uop Creatinine now normal (5) DVT prophylaxis Current Visit: Yes Status: Acute (6) Leukocytosis Current Visit: Yes Status: Acute WBC improving, pt afebirle, Remains on vanc and gent. cultures obtained from intraop are negative. Qualifiers: Leukocytosis type: bandemia Qualified Code(s): D72.825 - Bandemia Subjective - Subjective Principal diagnosis: s/p ant repair, tvt, laparotomy and poncho, then bowel repair and TVT removal Interval history: Has been getting up to void today, just voided 300 cc without difficulty. Pain control better, Has been up to chair and plans ambulation tomorrow. Still NPO and no flatus. Objective - Vital Signs Latest vital signs: Vital Signs Temp Pulse Resp BP Pulse Ox 10/16/16 19:55 99.5 F 91 16 172/85 94 L 10/16/16 15:00 97.2 F L 87 16 150/77 95 10/16/16 10:49 98.4 F 87 16 133/67 94 L 10/16/16 07:00 98.1 F 86 14 124/67 93 L 10/16/16 04:16 98.5 F 81 16 124/70 94 L 10/16/16 00:29 98.1 F 86 16 126/67 95 Intake and Output 10/16/16 10/16/16 10/16/16 07:59 15:59 23:59 Intake Total 2121 100 / 100 0 / 0 Output Total 1420 / 1420 870 / 870 660 / 660 Balance 702 / 702 -770 / -770 -660 / -660 Intake: IV Fluids 2121 100 / 100 0.9 % Sodium Chloride 1, 1000 / 1000 000 ML @ 110 mls/hr IVC . Q9H6M [facility] Rx#:[id number] Intralipid 20% 250 ML @ 250 / 250 21 mls/hr IVPB MoWeFr@ 1700 [facility] Rx#:[id number] Zosyn 3.375 GM In 100 / 100 100 / 100 Dextrose 5% (Minibag+) 100 ML 100 ML @ 25 mls/hr IVPB Q8HR [facility] Rx#: [id number] Vancocin 1,500 MG In 250 / 250 Dextrose 5% 250 ML @ 166. 67 mls/hr IVPB Q24H [facility] Rx#:[id number] Oral 0 / 0 0 / 0 0 / 0 Output: Urine 600 / 600 Catheter 1000 / 1000 800 / 800 Gastric Drainage 400 / 400 Wound Drainage 20 / 20 70 / 70 60 / 60 Abdomen 50 / 50 20 / 20 Left Lower Abdomen 20 / 20 20 / 20 10 / 10 Right Lower Abdomen 0 / 0 0 / 0 30 / 30 Other: Meal NPO NPO Percent of Meal Consumed 0% Blood Glucose* 121 139 129 - I&O's I&O's: Intake & Output 10/13/16 10/14/16 10/15/16 10/16/16 23:59 23:59 23:59 23:59 Intake Total 4294 / 4294 3832 / 3832 610 / 610 2222 / 2222 Output Total 4355 / 4355 2695 / 2695 3664 / 3664 2950 / 2950 Balance -61 / -61 1137 / 1137 -3054 / -3054 -728 / -728 Weight 84.7 kg 85.13 kg - Exam Lungs: bilateral: normal Chest: Normal S1, Normal S2 Extremities: Present: normal, other (compression stockings in place) Abdomen: Present: soft, other (appropriate tenderness, hypoactive BS) Incision OB: Present: normal, other (Wound vac in place) - Labs Labs: Abnormal lab results RBC 2.52 M/mcL (3.82-4.97) L 10/16/16 05:00 Hgb 8.6 g/dL (11.5-15.4) L 10/16/16 05:00 Hct 25.1 % (35.3-44.9) L 10/16/16 05:00 MCH 34.1 pg (28.0-33.3) H 10/16/16 05:00 Immature Gran % 4.9 % (0-4) H 10/14/16 05:17 Band Neutrophils % 19.0 % (0-4) H 10/12/16 03:40 Nucleated RBCs/100 WBC 0.2 /100 WBC (0) H 10/16/16 05:00 Reactive Lymphocytes Present (Not Present) A 10/11/16 05:15 Smudge Cells Present (Not Present) A 10/15/16 07:57 Dohle Bodies Present (Not Present) A 10/10/16 03:39 Polychromasia 1+ (Not Present) A 10/10/16 03:39 Anisocytosis 2+ (Not Present) A 10/15/16 07:57 Potassium 3.3 mEq/L (3.5-4.5) L 10/16/16 05:00 BUN 29 mg/dL (7-20) H 10/16/16 05:00 BUN/Creatinine Ratio 32 (6-26) H 10/16/16 05:00 Glucose 140 mg/dL (70-99) H 10/16/16 05:00 POC Glucose 129 (58-89) H 10/16/16 19:53 Calcium 7.9 mg/dL (8.6-10.8) L 10/16/16 05:00 Prealbumin 11.0 mg/dL (16.0-38.0) L 10/16/16 05:00 Triglycerides 225 mg/dL (< 150) H 10/15/16 04:39 Consult Discharge Plan - Plan Referrals: Michael Negron MD [Partnered Physician] - 10/19/16 10:35 am Alda Arroyo MD [Primary Care Provider] -
[2016-10-17] MEDS: Insulin LISPRO 300 UNITS/3 ML VIAL SQ SCH ×6 (00:17→22:19)
[2016-10-17] MEDS: Piperacillin/Tazobactam 3.375 GM in D5% in Water (Mini-Bag+) 100 ML IVPB SCH ×3 (00:18→16:07)
[2016-10-17] MEDS: Ondansetron 4 MG/2 ML VIAL IVP PRN ×3 (00:18→08:21)
[2016-10-17] MEDS: Erythromycin OPTH Oint RIGHT EYE SCH ×4 (00:27→22:20)
[2016-10-17 04:53] LABS: Magnesium 1.9 mg/dL (1.6-2.6); Phosphorous 3.7 mg/dL (2.3-4.7)
[2016-10-17] MEDS: *HR* Heparin 5,000 UNIT/ML VIAL SQ SCH ×2 (06:17→18:18)
[2016-10-17 08:13] LABS: Basophils % 0.3 %; Eosinophils # 0.1 K/mcL (0.0-0.6); Eosinophils % 0.6 %; Hematocrit 26.6 % (35.3-44.9); Immature Granulocytes % 5.3 % (0-4); Lymphocytes # 1.1 K/mcL (0.6-4.6); Lymphocytes % 9.6 %; Mean Corpuscular HGB Conc 33.8 g/dL (31.6-35.5); Mean Corpuscular Hemoglobin 33.8 pg (28.0-33.3); Mean Platelet Volume 9.3 fL (9.4-12.4); Monocytes % 8.1 %; Platelet Count 246 K/mcL (140-400); Red Blood Count 2.66 M/mcL (3.82-4.97); Red Cell Distribution Width 13.9 % (11.5-14.5); Segmented Neutrophils % 76.1 %
[2016-10-17] MEDS: Pantoprazole 40 MG VIAL IVP SCH (08:21)
[2016-10-17 08:31] LABS: BUN/Creatinine Ratio 28 (6-26); Blood Urea Nitrogen 28 mg/dL (7-20); Calcium 8.1 mg/dL (8.6-10.8); Carbon Dioxide 25 mEq/L (19-29); Chloride 107 mEq/L (98-109); Glucose 118 mg/dL (70-99); Osmolality,Calculated 301 (280-300); Potassium 3.7 mEq/L (3.5-4.5); Sodium 142 mEq/L (136-145); eGFR For African Americans > 60 (> 60); eGFR For Non-African Americans 57 (> 60)
--- NOTE | 2016-10-17 08:42 | General Surgery Progress Note ---
<Anthony Kaur - Last Filed: 10/17/16 09:52> Date of Encounter: 10/17/16 Time of Encounter: 06:50 - Assessment and Plan (1) Perforated abdominal viscus Current Visit: Yes Status: Acute POD #6 Exploratory laparotomy, lysis of adhesions, ileocectomy, wound vac placement with Dr. Hopkins Continue NPO and bowel rest while awaiting return of bowel function NG to LIWS IV antibiotics- Zosyn (Vancomycin dc'd on 10/16/16). 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 (2) Pelvic prolapse Current Visit: Yes Status: Acute POD #8 s/p exp lap with DARLENE, ant repair and TVT Qualifiers: Prolapse type: other female genital prolapse Qualified Code(s): N81.89 - Other female genital prolapse; N81.8 - Other female genital prolapse (3) Hypokalemia Current Visit: Yes Status: Acute Improved K+ 3.3 > 3.7 Patient received 40meq yesterday. TPN with 20meq KCl was concentrated to decrease overall fluid intake. Continue to monitor I&Os. We will continue to monitor labs. (4) Leukocytosis Current Visit: Yes Status: Acute 11.1>10.6>11.2 peritoneal culture final result no growth IV antibiotics - Zosyn repeat AM labs Qualifiers: Leukocytosis type: bandemia Qualified Code(s): D72.825 - Bandemia (5) Hyperglycemia Current Visit: Yes Status: Acute high dose scale sliding scale q4hr Will continue to monitor and adjust as necessary (6) Acute kidney injury Current Visit: Yes Status: Acute Total fluids decreased yesterday from 110 to 80ml/hr Cr 1.66>>0.95>0.92> Continue IV fluids Avoid nephrotoxic medications Lay removed on 10/16/16 Repeat AM labs (7) DVT prophylaxis Current Visit: Yes Status: Acute Heparin 5,000 units SQ twice daily for DVT prophylaxis EPCDs bilateral lower extremities for DVT prophylaxis Subjective Patient reports: no new complaints, feels better, pain is less, no flatus, no bowel movement, afebrile, other (Patient states nursing got her up to chair twice yesterday, and she got up approx 5 times with help from family.) Objective Vital Signs - Last 8 Hours Temp Pulse Resp BP Pulse Ox 10/17/16 07:17 98.1 F 80 18 145/77 94 L 10/17/16 04:11 98.6 F 82 16 145/74 98 Intake and Output 10/16/16 10/17/16 10/17/16 23:59 07:59 15:59 Intake Total 100 / 100 280 / 280 Output Total 660 / 660 1830 / 1830 Balance -560 / -560 -1550 / -1550 Intake: IV Fluids 100 / 100 100 / 100 Zosyn 3.375 GM In 100 / 100 100 / 100 Dextrose 5% (Minibag+) 100 ML 100 ML @ 25 mls/hr IVPB Q8HR [facility] Rx#: [id number] Oral 0 / 0 180 / 180 Output: Urine 600 / 600 1200 / 1200 Gastric Drainage 600 / 600 Wound Drainage 60 / 60 30 / 30 Abdomen 20 / 20 Left Lower Abdomen 10 / 10 20 / 20 Right Lower Abdomen 30 / 30 10 / 10 Other: Meal NPO Blood Glucose* 129 145 - General physical appearance well developed, well nourished, no distress - Eyes normal ocular movement - ENT normal mucosa, atraumatic, normocephalic - Neck Neck exam: trachea midline - Respiratory normal respiratory effort - Cardiovascular Cardiovascular exam: Present: RRR, no murmurs/rubs/gallops - Abdomen Abdomen: Present: soft, non tender, tender (post-op), wound (midline and lower abdomen with wound vac in place.). Absent: bowel sounds present Additional Comments: RLQ MANUEL #1 with serousang. drainage noted (30ml previous 24 hrs); LLQ MANUEL #2 with serousang. drainage noted (50ml previous 24 hrs); NG tube to LIWS (400ml previous 24 hrs) - Incision Incision: Present: open (with wound vac in place.) - Integumentary no rash - Neurologic CN 2-12 grossly intact - Psychiatric oriented to person, oriented to place, speech is normal, memory intact - Labs 10/17/16 07:45 10/17/16 07:45 Diabetes panel 10/17/16 Range/Units 07:45 Sodium 142 (136-145) mEq/L Potassium 3.7 (3.5-4.5) mEq/L Chloride 107 (98-109) mEq/L Carbon Dioxide 25 (19-29) mEq/L BUN 28 H (7-20) mg/dL Creatinine 0.99 (0.57-1.11) mg/dL Glucose 118 H (70-99) mg/dL Calcium 8.1 L (8.6-10.8) mg/dL Calcium panel 10/17/16 10/17/16 Range/Units 04:20 07:45 Calcium 8.1 L (8.6-10.8) mg/dL Phosphorus 3.7 (2.3-4.7) mg/dL Pituitary panel 10/17/16 Range/Units 07:45 Sodium 142 (136-145) mEq/L Potassium 3.7 (3.5-4.5) mEq/L Chloride 107 (98-109) mEq/L Carbon Dioxide 25 (19-29) mEq/L BUN 28 H (7-20) mg/dL Creatinine 0.99 (0.57-1.11) mg/dL Glucose 118 H (70-99) mg/dL Calcium 8.1 L (8.6-10.8) mg/dL Adrenal panel 10/17/16 Range/Units 07:45 Sodium 142 (136-145) mEq/L Potassium 3.7 (3.5-4.5) mEq/L Chloride 107 (98-109) mEq/L Carbon Dioxide 25 (19-29) mEq/L BUN 28 H (7-20) mg/dL Creatinine 0.99 (0.57-1.11) mg/dL Glucose 118 H (70-99) mg/dL Calcium 8.1 L (8.6-10.8) mg/dL - VTE Documentation of Mechanical Device: Intermittent pneumatic compression device Consult Discharge Plan - Plan Referrals: Michael Negron MD [Partnered Physician] - 10/19/16 10:35 am Alda Arroyo MD [Primary Care Provider] - <Traci Hopkins L - Last Filed: 10/17/16 13:15> - Assessment and Plan (1) Leukocytosis Current Visit: Yes Status: Acute although peritoneal cultures with no final growth it was bilious liquid stool that was swabbed, unsure why didnt grow anything as it was obviously not sterile continue zosyn, trend wbc Qualifiers: Leukocytosis type: unspecified Qualified Code(s): D72.829 - Elevated white blood cell count, unspecified (2) Perforated abdominal viscus Current Visit: Yes Status: Acute (3) Hypokalemia Current Visit: Yes Status: Acute resolved, monitor (4) Ileus, postoperative Current Visit: Yes Status: Acute patient has an expected post op ileus continue ngt decompression continue tpn until can take in adequate po intake OOB to chair/ambulate/PT/OT start reglan continue ice chips and popcicles ok to chew gum Subjective Narrative: patient without complaints, pain controlled no flatus or bm no nausea is frustrated bowels havent started moving/flatus OOB to chair for 15 minuts Objective Vital Signs - Last 8 Hours Temp Pulse Resp BP Pulse Ox 10/17/16 11:52 97.8 F 84 16 161/77 96 10/17/16 07:17 98.1 F 80 18 145/77 94 L Intake and Output 10/16/16 10/17/16 10/17/16 23:59 07:59 15:59 Intake Total 100 / 100 280 / 280 Output Total 660 / 660 1830 / 1830 650 / 650 Balance -560 / -560 -1550 / -1550 -650 / -650 Intake: IV Fluids 100 / 100 100 / 100 Zosyn 3.375 GM In 100 / 100 100 / 100 Dextrose 5% (Minibag+) 100 ML 100 ML @ 25 mls/hr IVPB Q8HR [facility] Rx#: [id number] Oral 0 / 0 180 / 180 Output: Urine 600 / 600 1200 / 1200 Gastric Tube Lavage 650 / 650 Amount Left Nare 650 / 650 Gastric Drainage 600 / 600 Wound Drainage 60 / 60 30 / 30 Abdomen 20 / 20 Left Lower Abdomen 10 / 10 20 / 20 Right Lower Abdomen 30 / 30 10 Other: Meal NPO Blood Glucose* 129 145 105 - General physical appearance well developed, well nourished, no distress - Eyes PERRL, normal ocular movement - ENT normal mucosa, atraumatic, normocephalic - Respiratory normal respiratory effort, clear to auscultation - Cardiovascular Cardiovascular exam: Present: RRR - Abdomen Abdomen: Present: soft, tender (appropriate post op tenderness). Absent: bowel sounds present - Incision Incision: Present: open - Integumentary no rash, no growths - Neurologic CN 2-12 grossly intact - Musculoskeletal normal posture - Psychiatric oriented to time, oriented to person, oriented to place, speech is normal, memory intact - Labs 10/17/16 07:45 10/17/16 07:45 Vital Signs Temp Pulse Resp BP Pulse Ox 10/17/16 11:52 97.8 F 84 16 161/77 96 10/17/16 07:17 98.1 F 80 18 145/77 94 L 10/17/16 04:11 98.6 F 82 16 145/74 98 10/17/16 00:00 99.4 F 84 16 159/79 94 L 10/16/16 19:55 99.5 F 91 16 172/85 94 L 10/16/16 15:00 97.2 F L 87 16 150/77 95 Intake and Output 10/16/16 10/17/16 10/17/16 23:59 07:59 15:59 Intake Total 100 / 100 280 / 280 Output Total 660 / 660 1830 / 1830 650 / 650 Balance -560 / -560 -1550 / -1550 -650 / -650 Intake: IV Fluids 100 / 100 100 / 100 Zosyn 3.375 GM In 100 / 100 100 / 100 Dextrose 5% (Minibag+) 100 ML 100 ML @ 25 mls/hr IVPB Q8HR [facility] Rx#: [id number] Oral 0 / 0 180 / 180 Output: Urine 600 / 600 1200 / 1200 Gastric Tube Lavage 650 / 650 Amount Left Nare 650 / 650 Gastric Drainage 600 / 600 Wound Drainage 60 / 60 30 / 30 Abdomen 20 / 20 Left Lower Abdomen 10 / 10 20 / 20 Right Lower Abdomen 30 / 30 10 / 10 Other: Meal NPO Blood Glucose* 129 145 105 Short CBC 10/17/16 Range/Units 07:45 WBC 11.8 H (4.3-11.1) K/mcL Hgb 9.0 L (11.5-15.4) g/dL Hct 26.6 L (35.3-44.9) % Plt Count 246 (140-400) K/mcL Neutrophils # 9.0 H (1.6-8.9) K/mcL BMP 10/17/16 Range/Units 07:45 Sodium 142 (136-145) mEq/L Potassium 3.7 (3.5-4.5) mEq/L Chloride 107 (98-109) mEq/L Carbon Dioxide 25 (19-29) mEq/L BUN 28 H (7-20) mg/dL Creatinine 0.99 (0.57-1.11) mg/dL Glucose 118 H (70-99) mg/dL Calcium 8.1 L (8.6-10.8) mg/dL - Attending Attestation I examined this patient and my medical decision-making was reviewed with the WATER PIPE INSTALLER/PA/Advanced Practice Nurse/Resident Physician. I agree with the documented findings, disposition and treatment plan as described except to the extent set forth below.
[2016-10-17 08:51] LABS: Platelet Estimate Normal (Normal)
[2016-10-17] MEDS: Metoclopramide 10 MG/2 ML VIAL IVP SCH ×2 (12:35→18:19)
[2016-10-17] MEDS: *HR* Metoprolol 5 MG/5 ML VIAL IVP SCH ×2 (12:35→18:18)
--- NOTE | 2016-10-17 14:29 | Event Note ---
Date of Encounter: 10/17/16 Time of Encounter: 14:27 Pt without new c/o. She has been up to shower and reports good pain control. Still no flatus and remains NPO. No N/V. Wound vac changed today and incision looks very good and is granulating in. Pt is without evidence of worsening infection and she is now off of Vanco.
[2016-10-17] MEDS: Ipratropium/Albuterol Neb 3 ML IH SCH ×2 (15:13→22:14)
[2016-10-17] MEDS ORDERED: CLINIMIX E IV SCH (17:00)
[2016-10-17] MEDS ORDERED: VITAMIN K IV SCH (17:00)
[2016-10-17] MEDS ORDERED: [UNRECOGNIZED DRUG - OTHER] IV SCH (17:00)
[2016-10-17] MEDS ORDERED: MVI IV SCH (17:00)
[2016-10-18] MEDS: Metoclopramide 10 MG/2 ML VIAL IVP SCH ×5 (00:10→23:52)
[2016-10-18] MEDS: *HR* Metoprolol 5 MG/5 ML VIAL IVP SCH ×5 (00:11→23:52)
[2016-10-18] MEDS: Piperacillin/Tazobactam 3.375 GM in D5% in Water (Mini-Bag+) 100 ML IVPB SCH ×4 (00:11→23:52)
[2016-10-18] MEDS: Insulin LISPRO 300 UNITS/3 ML VIAL SQ SCH ×6 (03:15→21:07)
[2016-10-18] MEDS: *HR* Heparin 5,000 UNIT/ML VIAL SQ SCH ×2 (05:06→16:32)
[2016-10-18 05:36] LABS: Calcium 8.2 mg/dL (8.6-10.8); Phosphorous 4.3 mg/dL (2.3-4.7); Potassium 3.9 mEq/L (3.5-4.5)
[2016-10-18 07:15] LABS: Basophils # 0.1 K/mcL (0.0-0.2); Basophils % 0.5 %; Eosinophils # 0.1 K/mcL (0.0-0.6); Eosinophils % 1.1 %; Hematocrit 27.7 % (35.3-44.9); Hemoglobin 9.1 g/dL (11.5-15.4); Immature Granulocytes % 4.1 % (0-4); Lymphocytes # 1.1 K/mcL (0.6-4.6); Lymphocytes % 9.7 %; Mean Corpuscular HGB Conc 32.9 g/dL (31.6-35.5); Mean Corpuscular Hemoglobin 33.7 pg (28.0-33.3); Mean Corpuscular Volume 102.6 fL (83.0-100.0); Mean Platelet Volume 9.5 fL (9.4-12.4); Monocytes # 0.9 K/mcL (0.0-1.3); Monocytes % 8.2 %; Neutrophils # 8.7 K/mcL (1.6-8.9); Platelet Count 306 K/mcL (140-400); Red Cell Distribution Width 14.2 % (11.5-14.5); Segmented Neutrophils % 76.4 %
[2016-10-18] MEDS: 0.9 % Sodium Chloride 1,000 ML IVC SCH (09:29)
[2016-10-18] MEDS: Pantoprazole 40 MG VIAL IVP SCH (09:29)
[2016-10-18] MEDS: Erythromycin OPTH Oint RIGHT EYE SCH ×3 (09:33→21:00)
[2016-10-18] MEDS: Ipratropium/Albuterol Neb 3 ML IH SCH ×2 (10:50→23:08)
--- NOTE | 2016-10-18 14:26 | General Surgery Progress Note ---
Date of Encounter: 10/18/16 Time of Encounter: 14:00 - Assessment and Plan (1) Perforated abdominal viscus Current Visit: Yes Status: Acute POD #7 Exploratory laparotomy, lysis of adhesions, ileocectomy, wound vac placement with Dr. 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 Wound vac to Midline- change every MWF per surgery team Continue TPN with Total fluid rate of 80ml/hour (MIV + TPN) Repeat am labs Incentive Spirometer every 1 hour while awake Increase activity as tolerated- Out of bed to chair PT/OT daily (2) Leukocytosis Current Visit: Yes Status: Acute Stable 11.8>11.4 Continue IV antibiotics- Zosyn Repeat labs in the am Qualifiers: Leukocytosis type: unspecified Qualified Code(s): D72.829 - Elevated white blood cell count, unspecified (3) Acute kidney injury Current Visit: Yes Status: Acute .99>1.18 Fluid bolus- 500ml now Avoid nephrotoxic medications Repeat labs in the am (4) Hyperglycemia Current Visit: Yes Status: Acute mildly hyperglycemic Continue high scale sliding scale insulin coverage every 4 hour coverage Will continue to monitor and adjust treatment as necessary (5) Ileus, postoperative Current Visit: Yes Status: Acute Improved today- flatus and BM X 2 Continue reglan NG tube to gravity drain Trial clear liquids 300ml/shift (6) DVT prophylaxis Current Visit: Yes Status: Acute Heparin 5,000 units SQ twice daily for DVT prophylaxis EPCDs bilateral lower extremities for DVT prophylaxis Subjective Patient reports: no new complaints, feels better, still having pain, pain is less, voiding w/o difficulty, flatus, bowel movement (X2 this morning), afebrile Objective Vital Signs - Last 8 Hours Temp Pulse Resp BP Pulse Ox 10/18/16 12:15 99.2 F 79 12 165/77 93 L 10/18/16 07:30 98.6 F 85 20 158/81 96 Intake and Output 10/17/16 10/18/16 10/18/16 23:59 07:59 15:59 Intake Total 100 / 100 100 / 100 1340 / 1340 Output Total 585 / 585 1999 / 1999 2130 / 2130 Balance -485 / -485 -1900 / -1900 -790 / -790 Intake: IV Fluids 100 / 100 100 / 100 1100 / 1100 0.9 % Sodium Chloride 1, 1000 / 1000 000 ML @ 20 mls/hr IVC . Q24H [facility] Rx#:[id number] Zosyn 3.375 GM In 100 / 100 100 / 100 100 / 100 Dextrose 5% (Minibag+) 100 ML 100 ML @ 25 mls/hr IVPB Q8HR [facility] Rx#: [id number] Oral 240 / 240 Output: Urine 200 / 200 900 / 900 750 / 750 Urine/Stool Mix 400 / 400 Gastric Tube Lavage 350 / 350 Amount Left Nare 350 / 350 Gastric Drainage 700 / 700 1150 / 1150 Wound Drainage 35 / 35 230 / 230 Abdomen 200 / 200 Left Lower Abdomen 20 / 20 20 / 20 Right Lower Abdomen 15 / 15 10 / 10 Other: Meal NPO NPO Stool Size Moderate Moderate Stool Consistency loose loose Stool Characteristics Pasty Stool Color Brown Brown # Bowel Movements 1 Blood Glucose* 134 106 143 - General physical appearance well developed, no distress, other (resting comfortably and states that she feels much better today) - Eyes normal ocular movement - ENT normal mucosa, atraumatic, normocephalic - Neck Neck exam: trachea midline - Respiratory normal respiratory effort, clear to auscultation - Cardiovascular Cardiovascular exam: Present: RRR - Abdomen Abdomen: Present: bowel sounds present, soft, tender (minimal, expected post- operative tenderness), wound (Midline with wound vac intact with small amount of serous drainage; NG tube to gravity drain with scant amount of bilious drainage; LLQ MANUEL drain to bulb suction (10ml of serous drainage since midnight) ; RLQ MANUEL drain to bulb suction (20ml of serous drainage since midight)) - Neurologic CN 2-12 grossly intact - Psychiatric oriented to time, oriented to person, oriented to place, speech is normal, memory intact - Labs 10/18/16 04:50 10/18/16 04:50 Diabetes panel 10/18/16 Range/Units 04:50 Sodium 143 (136-145) mEq/L Potassium 3.9 (3.5-4.5) mEq/L Chloride 107 (98-109) mEq/L Carbon Dioxide 27 (19-29) mEq/L BUN 28 H (7-20) mg/dL Creatinine 1.18 H (0.57-1.11) mg/dL Glucose 156 H (70-99) mg/dL Calcium 8.2 L (8.6-10.8) mg/dL Calcium panel 10/18/16 Range/Units 04:50 Calcium 8.2 L (8.6-10.8) mg/dL Phosphorus 4.3 (2.3-4.7) mg/dL Pituitary panel 10/18/16 Range/Units 04:50 Sodium 143 (136-145) mEq/L Potassium 3.9 (3.5-4.5) mEq/L Chloride 107 (98-109) mEq/L Carbon Dioxide 27 (19-29) mEq/L BUN 28 H (7-20) mg/dL Creatinine 1.18 H (0.57-1.11) mg/dL Glucose 156 H (70-99) mg/dL Calcium 8.2 L (8.6-10.8) mg/dL Adrenal panel 10/18/16 Range/Units 04:50 Sodium 143 (136-145) mEq/L Potassium 3.9 (3.5-4.5) mEq/L Chloride 107 (98-109) mEq/L Carbon Dioxide 27 (19-29) mEq/L BUN 28 H (7-20) mg/dL Creatinine 1.18 H (0.57-1.11) mg/dL Glucose 156 H (70-99) mg/dL Calcium 8.2 L (8.6-10.8) mg/dL - VTE Documentation of Mechanical Device: Intermittent pneumatic compression device Consult Discharge Plan - Plan Referrals: Michael Negron MD [Partnered Physician] - 10/19/16 10:35 am Alda Arroyo MD [Primary Care Provider] -
[2016-10-18] MEDS ORDERED: 0.9 % Sodium Chloride 500 ML IVC ONE (14:41)
[2016-10-18] MEDS ORDERED: CLINIMIX E IV SCH (17:00)
[2016-10-18] MEDS ORDERED: [UNRECOGNIZED DRUG - OTHER] IV SCH (17:00)
[2016-10-18] MEDS ORDERED: MVI IV SCH (17:00)
[2016-10-18] MEDS ORDERED: VITAMIN K IV SCH (17:00)
[2016-10-19] MEDS: Insulin LISPRO 300 UNITS/3 ML VIAL SQ SCH ×4 (02:44→16:19)
[2016-10-19 05:16] LABS: Basophils % 0.2 %; Eosinophils # 0.2 K/mcL (0.0-0.6); Eosinophils % 1.2 %; Hematocrit 27.9 % (35.3-44.9); Hemoglobin 9.1 g/dL (11.5-15.4); Immature Granulocytes % 2.6 % (0-4); Lymphocytes # 1.1 K/mcL (0.6-4.6); Lymphocytes % 8.2 %; Mean Corpuscular HGB Conc 32.6 g/dL (31.6-35.5); Mean Corpuscular Hemoglobin 33.3 pg (28.0-33.3); Mean Corpuscular Volume 102.2 fL (83.0-100.0); Mean Platelet Volume 9.3 fL (9.4-12.4); Monocytes # 0.9 K/mcL (0.0-1.3); Monocytes % 7.1 %; Neutrophils # 10.4 K/mcL (1.6-8.9); Platelet Count 306 K/mcL (140-400); Red Blood Count 2.73 M/mcL (3.82-4.97); Red Cell Distribution Width 14.2 % (11.5-14.5); Segmented Neutrophils % 80.7 %
[2016-10-19] MEDS: *HR* Heparin 5,000 UNIT/ML VIAL SQ SCH ×2 (05:17→17:29)
[2016-10-19] MEDS: *HR* Metoprolol 5 MG/5 ML VIAL IVP SCH ×2 (05:17→11:58)
[2016-10-19] MEDS: Metoclopramide 10 MG/2 ML VIAL IVP SCH ×4 (05:18→23:51)
[2016-10-19 05:32] LABS: Calcium 7.9 mg/dL (8.6-10.8); Potassium 3.6 mEq/L (3.5-4.5)
--- NOTE | 2016-10-19 08:40 | General Surgery Progress Note ---
<Alexandra Nevarez Radha - Last Filed: 10/19/16 08:38> Date of Encounter: 10/19/16 Time of Encounter: 08:30 - Assessment and Plan (1) Perforated abdominal viscus Current Visit: Yes Status: Acute POD #8 Exploratory laparotomy, lysis of adhesions, ileocectomy, wound vac placement with Dr. Hopkins NG removal Clear liquids with protein supplements TID (enlive) IV antibiotics- Zosyn Supportive care/Pain control- convert to PO Wound vac to Midline- change every MWF per surgery team Continue TPN with Total fluid rate of 80ml/hour (MIV + TPN) Repeat am labs Incentive Spirometer every 1 hour while awake Increase activity as tolerated- Out of bed to chair PT/OT daily (2) Leukocytosis Current Visit: Yes Status: Acute Stable 11.8>11.4>12.9 Continue IV antibiotics- Zosyn Repeat labs in the am Qualifiers: Leukocytosis type: unspecified Qualified Code(s): D72.829 - Elevated white blood cell count, unspecified (3) Acute kidney injury Current Visit: Yes Status: Acute .99>1.18>1.19 Avoid nephrotoxic medications Repeat labs in the am (4) Hyperglycemia Current Visit: Yes Status: Acute Controlled Continue high scale sliding scale insulin coverage every ACHS coverage Will continue to monitor and adjust treatment as necessary (5) Ileus, postoperative Current Visit: Yes Status: Acute Improved today- flatus and BM X 2 Continue reglan NG tube removal Advance to clear liquids with protein supplements today (6) DVT prophylaxis Current Visit: Yes Status: Acute Heparin 5,000 units SQ twice daily for DVT prophylaxis EPCDs bilateral lower extremities for DVT prophylaxis Subjective Patient reports: feels better, still having pain, pain is less, tolerating liquids well, voiding w/o difficulty, flatus, bowel movement, afebrile Objective Vital Signs - Last 8 Hours Temp Pulse Resp BP Pulse Ox 10/19/16 07:15 98.2 F 73 18 135/78 98 10/19/16 06:30 98.0 F 67 16 127/69 94 L 10/19/16 03:47 98.8 F 82 14 164/94 98 Intake and Output 10/18/16 10/19/16 10/19/16 23:59 07:59 15:59 Intake Total 280 / 280 120 / 120 Output Total 560 / 560 1040 / 1040 Balance -280 / -280 -920 / -920 Intake: IV Fluids 100 / 100 Zosyn 3.375 GM In 100 / 100 Dextrose 5% (Minibag+) 100 ML 100 ML @ 25 mls/hr IVPB Q8HR [facility] Rx#: [id number] Oral 180 / 180 120 / 120 Output: Urine 550 / 550 600 / 600 Gastric Drainage 400 / 400 Wound Drainage 10 40 / 40 Left Lower Abdomen 10 / 10 40 / 40 Right Lower Abdomen 0 / 0 0 / 0 Other: Stool Size Small Small Stool Consistency loose liquid Stool Color Brown Brown Yellow Yellow # Bowel Movements 2 Blood Glucose* 137 103 - General physical appearance well developed, no distress - Eyes normal ocular movement - ENT normal mucosa, atraumatic, normocephalic - Neck Neck exam: trachea midline - Respiratory normal respiratory effort, clear to auscultation - Cardiovascular Cardiovascular exam: Present: RRR - Abdomen Abdomen: Present: bowel sounds present (hypoactive ), soft, tender (expected post-operative tenderness), wound (Midline with wound vac intact (serous drainage noted); MANUEL RLQ with serous drainage noted (15ml past 24 hours); MANUEL LLQ with serous drainage (40ml past 24 hours); NG to gravity drain (no drainage noted)) - Neurologic CN 2-12 grossly intact - Psychiatric oriented to time, oriented to person, oriented to place, speech is normal, memory intact - Labs 10/19/16 04:51 10/19/16 04:51 Diabetes panel 10/19/16 Range/Units 04:51 Sodium 142 (136-145) mEq/L Potassium 3.6 (3.5-4.5) mEq/L Chloride 108 (98-109) mEq/L Carbon Dioxide 25 (19-29) mEq/L BUN 26 H (7-20) mg/dL Creatinine 1.19 H (0.57-1.11) mg/dL Glucose 143 H (70-99) mg/dL Calcium 7.9 L (8.6-10.8) mg/dL Calcium panel 10/19/16 Range/Units 04:51 Calcium 7.9 L (8.6-10.8) mg/dL Pituitary panel 10/19/16 Range/Units 04:51 Sodium 142 (136-145) mEq/L Potassium 3.6 (3.5-4.5) mEq/L Chloride 108 (98-109) mEq/L Carbon Dioxide 25 (19-29) mEq/L BUN 26 H (7-20) mg/dL Creatinine 1.19 H (0.57-1.11) mg/dL Glucose 143 H (70-99) mg/dL Calcium 7.9 L (8.6-10.8) mg/dL Adrenal panel 10/19/16 Range/Units 04:51 Sodium 142 (136-145) mEq/L Potassium 3.6 (3.5-4.5) mEq/L Chloride 108 (98-109) mEq/L Carbon Dioxide 25 (19-29) mEq/L BUN 26 H (7-20) mg/dL Creatinine 1.19 H (0.57-1.11) mg/dL Glucose 143 H (70-99) mg/dL Calcium 7.9 L (8.6-10.8) mg/dL - VTE Documentation of Mechanical Device: Intermittent pneumatic compression device Consult Discharge Plan - Plan Referrals: Michael Negron MD [Partnered Physician] - 10/19/16 10:35 am Alda Arroyo MD [Primary Care Provider] - - Attending Attestation I examined this patient and my medical decision-making was reviewed with the WEIGHTER/PA/Advanced Practice Nurse/Resident Physician. I agree with the documented findings, disposition and treatment plan as described except to the extent set forth below. 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 start po pain medication DC TPN tonight (3) Ileus, postoperative Current Visit: Yes Status: Acute resolved (4) DVT prophylaxis Current Visit: Yes Status: Acute (5) Acute kidney injury Current Visit: Yes Status: Acute continue ivf once stop TPN, stop tramadol continue to monitor Subjective Narrative: pain well controlled, paymaster of purses dc'd today passing flatus and having bm tolerating clears and ngt removed this am feels much better little SOB Objective Vital Signs - Last 8 Hours Temp Pulse Resp BP Pulse Ox 10/19/16 11:00 97.3 F L 91 20 129/73 95 10/19/16 07:15 98.2 F 73 18 135/78 98 10/19/16 06:30 98.0 F 67 16 127/69 94 L Intake and Output 10/18/16 10/19/16 10/19/16 23:59 07:59 15:59 Intake Total 280 / 280 220 / 220 300 / 300 Output Total 560 / 560 1040 / 1040 920 / 920 Balance -280 / -280 -820 / -820 -620 / -620 Intake: IV Fluids 100 / 100 100 / 100 300 / 300 0.9 % Sodium Chloride 1, 300 / 300 000 ML @ 20 mls/hr IVC . Q24H [facility] Rx#:[id number] Zosyn 3.375 GM In 100 / 100 100 / 100 Dextrose 5% (Minibag+) 100 ML 100 ML @ 25 mls/hr IVPB Q8HR [facility] Rx#: [id number] Oral 180 / 180 120 / 120 0 / 0 Output: Urine 550 / 550 600 / 600 900 / 900 Gastric Drainage 400 / 400 0 / 0 Wound Drainage 40 / 40 20 / 20 Left Lower Abdomen 10 / 40 / 40 10 / 10 Right Lower Abdomen 0 / 0 0 / 0 Other: Meal NPO Percent of Meal Consumed 0% Stool Size Small Small Moderate Stool Consistency loose liquid soft Stool Characteristics Normal for Patient Stool Color Brown Brown Brown Yellow Yellow # Bowel Movements 2 2 Blood Glucose* 137 103 131 - General physical appearance well developed, no distress, no pain - Eyes PERRL, normal ocular movement - ENT normal mucosa, normocephalic - Neck Neck exam: trachea midline - Respiratory normal expansion, clear to auscultation - Cardiovascular Cardiovascular exam: Present: RRR - Abdomen Abdomen: Present: bowel sounds present, soft, tender - Integumentary no rash - Neurologic CN 2-12 grossly intact - Musculoskeletal normal posture - Psychiatric oriented to time, oriented to person, memory intact - Labs 10/19/16 04:51 10/19/16 04:51 Short CBC 10/19/16 Range/Units 04:51 WBC 12.9 H (4.3-11.1) K/mcL Hgb 9.1 L (11.5-15.4) g/dL Hct 27.9 L (35.3-44.9) % Plt Count 306 (140-400) K/mcL Neutrophils # 10.4 H (1.6-8.9) K/mcL BMP 10/19/16 Range/Units 04:51 Sodium 142 (136-145) mEq/L Potassium 3.6 (3.5-4.5) mEq/L Chloride 108 (98-109) mEq/L Carbon Dioxide 25 (19-29) mEq/L BUN 26 H (7-20) mg/dL Creatinine 1.19 H (0.57-1.11) mg/dL Glucose 143 H (70-99) mg/dL Calcium 7.9 L (8.6-10.8) mg/dL Vital Signs Temp Pulse Resp BP Pulse Ox 10/19/16 11:00 97.3 F L 91 20 129/73 95 10/19/16 07:15 98.2 F 73 18 135/78 98 10/19/16 06:30 98.0 F 67 16 127/69 94 L 10/19/16 03:47 98.8 F 82 14 164/94 98 10/18/16 23:26 98.6 F 80 16 166/85 96 10/18/16 20:51 97.9 F 72 15 163/81 96 10/18/16 15:55 98.3 F 78 16 136/73 96 Intake and Output 10/18/16 10/19/16 10/19/16 23:59 07:59 15:59 Intake Total 280 / 280 220 / 220 300 / 300 Output Total 560 / 560 1040 / 1040 920 / 920 Balance -280 / -280 -820 / -820 -620 / -620 Intake: IV Fluids 100 / 100 100 / 100 300 / 300 0.9 % Sodium Chloride 1, 300 / 300 000 ML @ 20 mls/hr IVC . Q24H [facility] Rx#:[id number] Zosyn 3.375 GM In 100 / 100 100 / 100 Dextrose 5% (Minibag+) 100 ML 100 ML @ 25 mls/hr IVPB Q8HR [facility] Rx#: [id number] Oral 180 / 180 120 / 120 0 / 0 Output: Urine 550 / 550 600 / 600 900 / 900 Gastric Drainage 400 / 400 0 / 0 Wound Drainage Left Lower Abdomen Right Lower Abdomen 0 / 0 0 / 0 Other: Meal NPO Percent of Meal Consumed 0% Stool Size Small Small Moderate Stool Consistency loose liquid soft Stool Characteristics Normal for Patient Stool Color Brown Brown Brown Yellow Yellow # Bowel Movements 2 2 Blood Glucose* 137 103 131
[2016-10-19] MEDS ORDERED: traMADol 50 MG TABLET PO PRN (08:48)
[2016-10-19] MEDS: Pantoprazole 40 MG VIAL IVP SCH (09:15)
[2016-10-19] MEDS: Erythromycin OPTH Oint RIGHT EYE SCH ×3 (09:16→21:21)
[2016-10-19] MEDS: Piperacillin/Tazobactam 3.375 GM in D5% in Water (Mini-Bag+) 100 ML IVPB SCH ×4 (09:17→23:57)
[2016-10-19] MEDS: 0.9 % Sodium Chloride 1,000 ML IVC SCH (09:18)
[2016-10-19] MEDS: Ipratropium/Albuterol Neb 3 ML IH SCH ×2 (11:03→21:30)
[2016-10-19] MEDS ORDERED: *HR* Metoprolol 5 MG/5 ML VIAL IVP PRN (13:23)
[2016-10-19] MEDS: *HR* OxyCODONE/APAP 5/325 TABLET PO PRN (14:09)
[2016-10-19] MEDS: Ondansetron 4 MG/2 ML VIAL IVP PRN ×2 (14:17→19:43)
[2016-10-19] MEDS ORDERED: [UNRECOGNIZED DRUG - OTHER] IV SCH (17:00)
[2016-10-19] MEDS ORDERED: VITAMIN K IV SCH (17:00)
[2016-10-19] MEDS ORDERED: MVI IV SCH (17:00)
[2016-10-19] MEDS ORDERED: CLINIMIX E IV SCH (17:00)
[2016-10-19] MEDS ORDERED: 0.9 % Sodium Chloride 1,000 ML IVC SCH (17:00)
[2016-10-19] MEDS: *HR* HYDROmorphone (PF) 1 MG/ML SYRINGE IVP PRN (17:29)
--- NOTE | 2016-10-19 18:51 | Event Note ---
Date of Encounter: 10/19/16 Time of Encounter: 18:49 Pt looks good today. NG out and taking clears without n/v. + Flatus and BM. She is ambulating. She remains afebrile and non-toxic in appearance. Appreciate care of general surgery, I'm basically following along at this point with nothing new to add.
[2016-10-20] MEDS: Ondansetron 4 MG/2 ML VIAL IVP PRN ×2 (03:39→21:14)
[2016-10-20] MEDS: *HR* OxyCODONE/APAP 5/325 TABLET PO PRN ×2 (03:39→10:47)
[2016-10-20 03:41] LABS: Basophils % 0.3 %; Eosinophils # 0.2 K/mcL (0.0-0.6); Eosinophils % 1.2 %; Hematocrit 26.6 % (35.3-44.9); Hemoglobin 8.9 g/dL (11.5-15.4); Immature Granulocytes % 2.3 % (0-4); Lymphocytes # 1.3 K/mcL (0.6-4.6); Lymphocytes % 8.9 %; Mean Corpuscular HGB Conc 33.5 g/dL (31.6-35.5); Mean Corpuscular Hemoglobin 33.5 pg (28.0-33.3); Monocytes # 0.8 K/mcL (0.0-1.3); Monocytes % 5.7 %; Neutrophils # 11.9 K/mcL (1.6-8.9); Platelet Count 183 K/mcL (140-400); Red Blood Count 2.66 M/mcL (3.82-4.97); Red Cell Distribution Width 14.2 % (11.5-14.5); Segmented Neutrophils % 81.6 %
[2016-10-20 03:53] LABS: Calcium 7.6 mg/dL (8.6-10.8); Potassium 3.4 mEq/L (3.5-4.5)
[2016-10-20] MEDS: *HR* Heparin 5,000 UNIT/ML VIAL SQ SCH ×2 (05:26→17:34)
[2016-10-20] MEDS: Metoclopramide 10 MG/2 ML VIAL IVP SCH ×3 (05:27→17:35)
[2016-10-20] MEDS: Ipratropium/Albuterol Neb 3 ML IH SCH ×2 (09:19→20:20)
[2016-10-20] MEDS: Piperacillin/Tazobactam 3.375 GM in D5% in Water (Mini-Bag+) 100 ML IVPB SCH (09:37)
[2016-10-20] MEDS: Erythromycin OPTH Oint RIGHT EYE SCH ×3 (09:38→20:37)
--- NOTE | 2016-10-20 11:20 | General Surgery Progress Note ---
Date of Encounter: 10/20/16 Time of Encounter: 08:00 - Assessment and Plan (1) Perforated abdominal viscus Current Visit: Yes Status: Acute POD #9 Exploratory laparotomy, lysis of adhesions, ileocectomy, wound vac placement with Dr. Hopkins NG removed and TPN discontinued. IVF discontinued. Saline lock. Start full liquid diet with protein supplements TID (enlive) Discontinuing zosyn. Supportive care/ PO Pain control Wound vac to Midline- change every MWF per surgery team Will repeat labs Saturday unless otherwise medically necessary. Incentive Spirometer every 1 hour while awake Increase activity as tolerated- Out of bed to chair and up walking with assistance. PT/OT daily. (2) Leukocytosis Current Visit: Yes Status: Acute 11.4>12.9>14.6 peritoneal culture final result no growth Discontinue IV zosyn. Clinically improving. Qualifiers: Leukocytosis type: unspecified Qualified Code(s): D72.829 - Elevated white blood cell count, unspecified (3) Acute kidney injury Current Visit: Yes Status: Acute .99>1.18>1.19>1.14 Avoid nephrotoxic medications (4) Hyperglycemia Current Visit: Yes Status: Acute Controlled Continue high scale sliding scale insulin coverage every ACHS coverage Will continue to monitor and adjust treatment as necessary (5) Ileus, postoperative Current Visit: Yes Status: Resolved Resolved- flatus and BM X 2 today Continue reglan. NG tube removed and TPN discontinued. Tolerating clear liquids with protein supplements. Advance to full liquids. (6) Swelling of lower extremity Current Visit: Yes Status: Chronic Previously discussed SY hose with Dr. Hopkins. Patient is interested in seeing if these help with bilateral leg swelling. (7) DVT prophylaxis Current Visit: Yes Status: Acute Heparin 5,000 units SQ twice daily for DVT prophylaxis EPCDs bilateral lower extremities for DVT prophylaxis Subjective Patient reports: no new complaints, feels better, pain is less, tolerating liquids well, voiding w/o difficulty, flatus, bowel movement, diarrhea, shortness of breath (improved with lasix yesterday), afebrile (max temp 99.4) Objective Vital Signs - Last 8 Hours Temp Pulse Resp BP Pulse Ox 10/20/16 06:49 98 F 72 16 129/70 93 L 10/20/16 03:52 99.4 F 76 16 144/77 93 L Intake and Output 10/19/16 10/20/16 10/20/16 23:59 07:59 15:59 Intake Total 865 / 865 200 / 200 / Output Total 1450 / 1450 472 / 472 Balance -585 / -585 -272 / -272 Intake: IV Fluids 185 / 185 100 / 100 0.9 % Sodium Chloride 1, 85 / 85 000 ML @ 20 mls/hr IVC . Q24H ERNESTO Rx#:[id number] Zosyn 3.375 GM In 100 / 100 100 / 100 Dextrose 5% (Minibag+) 100 ML 100 ML @ 25 mls/hr IVPB Q8HR ERNESTO Rx#: [id number] Oral 680 / 680 100 / 100 Output: Urine 1450 / 1450 0 / 0 Urine/Stool Mix 450 / 450 Wound Drainage 0 / 0 Abdomen 0 / 0 Right Lower Abdomen 0 / 0 Other: Meal Breakfast Stool Size Small Small Stool Consistency liquid liquid Stool Color Brown Brown Yellow - General physical appearance well developed, well nourished, no distress - Eyes normal ocular movement - ENT normal mucosa, atraumatic, normocephalic - Neck Neck exam: trachea midline - Respiratory normal respiratory effort, clear to auscultation - Cardiovascular Cardiovascular exam: Present: RRR - Abdomen Abdomen: Present: bowel sounds present, soft, tender (mild, expected post operative tenderness), wound (Midline with wound vac intact; MANUEL RLQ with serous drainage noted (10ml past 24 hours); MANUEL LLQ with serous drainage (50ml past 24 hours)) - Integumentary no rash - Neurologic CN 2-12 grossly intact - Musculoskeletal normal posture - Psychiatric oriented to time, oriented to person, oriented to place, speech is normal, memory intact - Labs 10/20/16 03:30 10/20/16 03:30 Diabetes panel 10/20/16 Range/Units 03:30 Sodium 139 (136-145) mEq/L Potassium 3.4 L (3.5-4.5) mEq/L Chloride 106 (98-109) mEq/L Carbon Dioxide 22 (19-29) mEq/L BUN 18 (7-20) mg/dL Creatinine 1.14 H (0.57-1.11) mg/dL Glucose 109 H (70-99) mg/dL Calcium 7.6 L (8.6-10.8) mg/dL Calcium panel 10/20/16 Range/Units 03:30 Calcium 7.6 L (8.6-10.8) mg/dL Pituitary panel 10/20/16 Range/Units 03:30 Sodium 139 (136-145) mEq/L Potassium 3.4 L (3.5-4.5) mEq/L Chloride 106 (98-109) mEq/L Carbon Dioxide 22 (19-29) mEq/L BUN 18 (7-20) mg/dL Creatinine 1.14 H (0.57-1.11) mg/dL Glucose 109 H (70-99) mg/dL Calcium 7.6 L (8.6-10.8) mg/dL Adrenal panel 10/20/16 Range/Units 03:30 Sodium 139 (136-145) mEq/L Potassium 3.4 L (3.5-4.5) mEq/L Chloride 106 (98-109) mEq/L Carbon Dioxide 22 (19-29) mEq/L BUN 18 (7-20) mg/dL Creatinine 1.14 H (0.57-1.11) mg/dL Glucose 109 H (70-99) mg/dL Calcium 7.6 L (8.6-10.8) mg/dL - VTE Documentation of Mechanical Device: Intermittent pneumatic compression device Consult Discharge Plan - Plan Referrals: Michael Negron MD [Partnered Physician] - 10/19/16 10:35 am Alda Arroyo MD [Primary Care Provider] -
[2016-10-20] MEDS ORDERED: MVI IV SCH (17:00)
[2016-10-20] MEDS ORDERED: [UNRECOGNIZED DRUG - OTHER] IV SCH (17:00)
[2016-10-20] MEDS ORDERED: CLINIMIX E IV SCH (17:00)
[2016-10-20] MEDS ORDERED: VITAMIN K IV SCH (17:00)
[2016-10-20] MEDS: *HR* HYDROmorphone (PF) 1 MG/ML SYRINGE IVP PRN (20:37)
[2016-10-21] MEDS: Metoclopramide 10 MG/2 ML VIAL IVP SCH ×4 (01:13→17:42)
[2016-10-21] MEDS: *HR* OxyCODONE/APAP 5/325 TABLET PO PRN ×3 (04:35→20:30)
[2016-10-21] MEDS: Ondansetron 4 MG/2 ML VIAL IVP PRN (04:35)
[2016-10-21] MEDS: *HR* Heparin 5,000 UNIT/ML VIAL SQ SCH ×2 (06:38→17:42)
[2016-10-21 07:14] LABS: Basophils # 0.1 K/mcL (0.0-0.2); Basophils % 0.4 %; Eosinophils # 0.1 K/mcL (0.0-0.6); Hematocrit 26.3 % (35.3-44.9); Hemoglobin 8.7 g/dL (11.5-15.4); Immature Granulocytes % 1.5 % (0-4); Lymphocytes # 1.2 K/mcL (0.6-4.6); Lymphocytes % 8.7 %; Mean Corpuscular HGB Conc 33.1 g/dL (31.6-35.5); Mean Corpuscular Hemoglobin 33.1 pg (28.0-33.3); Mean Platelet Volume 9.4 fL (9.4-12.4); Monocytes % 6.9 %; Neutrophils # 11.2 K/mcL (1.6-8.9); Platelet Count 149 K/mcL (140-400); Red Blood Count 2.63 M/mcL (3.82-4.97); Red Cell Distribution Width 14.5 % (11.5-14.5); Segmented Neutrophils % 81.5 %
[2016-10-21 07:29] LABS: BUN/Creatinine Ratio 12 (6-26); Blood Urea Nitrogen 13 mg/dL (7-20); Calcium 7.7 mg/dL (8.6-10.8); Carbon Dioxide 20 mEq/L (19-29); Chloride 109 mEq/L (98-109); Glucose 109 mg/dL (70-99); Osmolality,Calculated 291 (280-300); Potassium 3.2 mEq/L (3.5-4.5); Sodium 140 mEq/L (136-145); eGFR For African Americans > 60 (> 60); eGFR For Non-African Americans 51 (> 60)
[2016-10-21] MEDS: Erythromycin OPTH Oint RIGHT EYE SCH ×3 (09:02→20:26)
[2016-10-21] MEDS: Ipratropium/Albuterol Neb 3 ML IH SCH ×2 (11:19→22:31)
--- NOTE | 2016-10-21 15:15 | General Surgery Progress Note ---
Date of Encounter: 10/21/16 Time of Encounter: 08:50 - Assessment and Plan (1) Perforated abdominal viscus Current Visit: Yes Status: Acute POD #10 Exploratory laparotomy, lysis of adhesions, ileocectomy, wound vac placement with Dr. Hopkins IVF discontinued. Saline locked. Tolerating full liquid diet with protein supplements TID (enlive), will try patient on regular diet. Discontinued zosyn. Supportive care/ PO Pain control Wound vac to Midline- change every MWF per surgery team Will repeat labs Saturday. Incentive Spirometer every 1 hour while awake Increase activity as tolerated- Out of bed to chair and up walking with assistance. PT/OT daily. Increased diarrhea, C diff negative. Discontinuing reglan. Consider CT of abdomen with IV/oral contrast if clinically worse or concern of abscess formation. (2) Leukocytosis Current Visit: Yes Status: Acute Improving 11.4>12.9>14.6> 13.8 peritoneal culture final result no growth Discontinued IV zosyn. Clinically improving. Qualifiers: Leukocytosis type: unspecified Qualified Code(s): D72.829 - Elevated white blood cell count, unspecified (3) Acute kidney injury Current Visit: Yes Status: Acute Improving .99>1.18>1.19>1.14>1.09 Avoid nephrotoxic medications (4) Hyperglycemia Current Visit: Yes Status: Acute Controlled Continue high scale sliding scale insulin coverage every ACHS coverage Will continue to monitor and adjust treatment as necessary (5) Ileus, postoperative Current Visit: Yes Status: Resolved Resolved- flatus and BM. Discontinuing Reglan with current increased diarrhea. NG tube removed and TPN discontinued. Tolerating full liquids with protein supplements. (6) Swelling of lower extremity Current Visit: Yes Status: Chronic SY hoses; patient states improvement of swelling. (7) DVT prophylaxis Current Visit: Yes Status: Acute Heparin 5,000 units SQ twice daily for DVT prophylaxis EPCDs bilateral lower extremities for DVT prophylaxis Subjective Patient reports: no new complaints, feels better, pain is less, tolerating liquids well, voiding w/o difficulty, flatus, bowel movement, diarrhea (patient noted diarrhea after every meal, family notes diarrhea 5-6 times per hr and appprox 7 times through the night.), shortness of breath (mild shortness of breath, worse at night.), afebrile (but max temp 99.6 this AM.), other (patient notes SY guerin.) Objective Vital Signs - Last 8 Hours Temp Pulse Resp BP Pulse Ox 10/21/16 11:27 97.9 F 71 16 145/86 99 Intake and Output 10/20/16 10/21/16 10/21/16 23:59 07:59 15:59 Intake Total 360 / 360 240 / 240 600 / 600 Output Total 50 / 50 0 / 0 Balance 360 / 360 190 / 190 600 / 600 Intake: Oral 360 / 360 240 / 240 600 / 600 Output: Wound Drainage 50 / 50 0 / 0 Abdomen 50 / 50 Right Lower Abdomen 0 / 0 0 / 0 Other: Meal Dinner Breakfast Percent of Meal Consumed 100% 60% Stool Size Moderate Small Stool Consistency loose liquid Stool Color Yellow Brown Lukasz Colored Yellow # Voids 1 - General physical appearance well developed, well nourished, no distress - Eyes normal ocular movement - ENT normal mucosa, atraumatic, normocephalic - Neck Neck exam: trachea midline - Respiratory normal respiratory effort, clear to auscultation - Cardiovascular Cardiovascular exam: Present: RRR - Abdomen Abdomen: Present: bowel sounds present, soft, tender (mild, expected post operative tenderness), wound (Midline with wound vac intact (50ml past 24hrs; MANUEL RLQ with serous drainage noted (24ml past 24 hours); MANUEL LLQ with serous drainage (0ml past 24 hours)) - Integumentary no rash - Neurologic CN 2-12 grossly intact - Musculoskeletal normal posture - Psychiatric oriented to time, oriented to person, oriented to place, speech is normal, memory intact - Labs 10/21/16 06:19 10/21/16 06:19 Diabetes panel 10/21/16 Range/Units 06:19 Sodium 140 (136-145) mEq/L Potassium 3.2 L (3.5-4.5) mEq/L Chloride 109 (98-109) mEq/L Carbon Dioxide 20 (19-29) mEq/L BUN 13 (7-20) mg/dL Creatinine 1.09 (0.57-1.11) mg/dL Glucose 109 H (70-99) mg/dL Calcium 7.7 L (8.6-10.8) mg/dL Calcium panel 10/21/16 Range/Units 06:19 Calcium 7.7 L (8.6-10.8) mg/dL Pituitary panel 10/21/16 Range/Units 06:19 Sodium 140 (136-145) mEq/L Potassium 3.2 L (3.5-4.5) mEq/L Chloride 109 (98-109) mEq/L Carbon Dioxide 20 (19-29) mEq/L BUN 13 (7-20) mg/dL Creatinine 1.09 (0.57-1.11) mg/dL Glucose 109 H (70-99) mg/dL Calcium 7.7 L (8.6-10.8) mg/dL Adrenal panel 10/21/16 Range/Units 06:19 Sodium 140 (136-145) mEq/L Potassium 3.2 L (3.5-4.5) mEq/L Chloride 109 (98-109) mEq/L Carbon Dioxide 20 (19-29) mEq/L BUN 13 (7-20) mg/dL Creatinine 1.09 (0.57-1.11) mg/dL Glucose 109 H (70-99) mg/dL Calcium 7.7 L (8.6-10.8) mg/dL - VTE Documentation of Mechanical Device: Intermittent pneumatic compression device Consult Discharge Plan - Plan Referrals: Michael Negron MD [Partnered Physician] - 10/19/16 10:35 am Alda Arroyo MD [Primary Care Provider] -
[2016-10-21] MEDS ORDERED: CLINIMIX E IV SCH (17:00)
[2016-10-21] MEDS ORDERED: MVI IV SCH (17:00)
[2016-10-21] MEDS ORDERED: [UNRECOGNIZED DRUG - OTHER] IV SCH (17:00)
[2016-10-21] MEDS ORDERED: VITAMIN K IV SCH (17:00)
[2016-10-22 03:13] LABS: Basophils % 0.3 %; Eosinophils # 0.2 K/mcL (0.0-0.6); Eosinophils % 1.3 %; Hematocrit 26.9 % (35.3-44.9); Immature Granulocytes % 1.2 % (0-4); Lymphocytes # 1.6 K/mcL (0.6-4.6); Lymphocytes % 12.3 %; Mean Corpuscular HGB Conc 33.5 g/dL (31.6-35.5); Mean Corpuscular Hemoglobin 33.2 pg (28.0-33.3); Mean Corpuscular Volume 99.3 fL (83.0-100.0); Mean Platelet Volume 9.3 fL (9.4-12.4); Monocytes # 0.9 K/mcL (0.0-1.3); Monocytes % 7.2 %; Neutrophils # 9.8 K/mcL (1.6-8.9); Platelet Count 122 K/mcL (140-400); Red Blood Count 2.71 M/mcL (3.82-4.97); Red Cell Distribution Width 14.6 % (11.5-14.5); Segmented Neutrophils % 77.7 %
[2016-10-22 03:29] LABS: Magnesium 1.5 mg/dL (1.6-2.6); Phosphorous 2.8 mg/dL (2.3-4.7)
[2016-10-22 03:30] LABS: BUN/Creatinine Ratio 10 (6-26); Blood Urea Nitrogen 10 mg/dL (7-20); Calcium 7.8 mg/dL (8.6-10.8); Carbon Dioxide 19 mEq/L (19-29); Chloride 109 mEq/L (98-109); Glucose 104 mg/dL (70-99); Osmolality,Calculated 287 (280-300); Potassium 3.1 mEq/L (3.5-4.5); Sodium 139 mEq/L (136-145); eGFR For African Americans > 60 (> 60); eGFR For Non-African Americans 58 (> 60)
[2016-10-22] MEDS: *HR* OxyCODONE/APAP 5/325 TABLET PO PRN ×3 (03:34→20:25)
[2016-10-22] MEDS: *HR* Heparin 5,000 UNIT/ML VIAL SQ SCH ×2 (06:41→16:47)
[2016-10-22] MEDS: Erythromycin OPTH Oint RIGHT EYE SCH ×3 (08:16→20:27)
[2016-10-22] MEDS: Ipratropium/Albuterol Neb 3 ML IH SCH ×2 (11:11→22:01)
--- NOTE | 2016-10-22 11:45 | General Surgery Progress Note ---
<Anthony Kaur - Last Filed: 10/22/16 11:34> Date of Encounter: 10/22/16 Time of Encounter: 07:20 - Assessment and Plan (1) Perforated abdominal viscus Current Visit: Yes Status: Acute POD #11 Exploratory laparotomy, lysis of adhesions, ileocectomy, wound vac placement with Dr. Hopkins IVF discontinued. Saline locked. Tolerating regular diet. Discontinued zosyn. Supportive care/ PO Pain control Wound vac to Midline- change every MWF per surgery team Incentive Spirometer every 1 hour while awake Increase activity as tolerated- Out of bed to chair and up walking with assistance. PT/OT daily. Improving diarrhea with regular diet and with discontinuing reglan. Will give imodium. (2) Leukocytosis Current Visit: Yes Status: Acute Improving 11.4>14.6> 13.8>12.7 peritoneal culture final result no growth Discontinued IV zosyn. Clinically improving. Qualifiers: Leukocytosis type: unspecified Qualified Code(s): D72.829 - Elevated white blood cell count, unspecified (3) Acute kidney injury Current Visit: Yes Status: Acute Improving .99>1.19>1.14>1.09>0.98 Avoid nephrotoxic medications (4) Hyperglycemia Current Visit: Yes Status: Acute Controlled Continue high scale sliding scale insulin coverage every ACHS coverage Will continue to monitor and adjust treatment as necessary (5) Ileus, postoperative Current Visit: Yes Status: Resolved Resolved- flatus and BM. Discontinued Reglan with increased diarrhea. NG tube removed and TPN discontinued. Tolerating regular diet. (6) Swelling of lower extremity Current Visit: Yes Status: Chronic SY hoses; patient states improvement of swelling. (7) DVT prophylaxis Current Visit: Yes Status: Acute Heparin 5,000 units SQ twice daily for DVT prophylaxis EPCDs bilateral lower extremities for DVT prophylaxis Subjective Patient reports: no new complaints, feels better, pain is less, tolerating a regular diet, voiding w/o difficulty, flatus, bowel movement, diarrhea, shortness of breath (worse with exertion), afebrile Objective Vital Signs - Last 8 Hours Temp Pulse Resp BP Pulse Ox 10/22/16 10:49 98.7 F 70 16 159/74 96 10/22/16 07:32 99.0 F 80 16 151/81 93 L Intake and Output 10/21/16 10/22/1610/22/17 23:59 07:59 15:59 Intake Total 360 / 360 120 / 120 Output Total 80 / 80 52 / 52 25 / 25 Balance 280 / 280 -52 / -52 95 / 95 Intake: Oral 360 / 360 120 / 120 Output: Urine 50 / 50 Wound Drainage 80 / 80 2 / 2 25 / 25 Abdomen 25 / 25 Right Abdomen 25 / 25 0 / 0 0 / 0 Right Lower Abdomen 55 / 55 2 / 2 Other: Meal waiting on dr to change diet order Breakfast Percent of Meal Consumed 0% 80% Stool Size Large Small Stool Consistency liquid loose Stool Color Yellow Brown Green # Voids 1 # Bowel Movement Diapers 1 - General physical appearance well developed, well nourished, no distress - Eyes normal ocular movement - ENT normal mucosa, atraumatic, normocephalic - Neck Neck exam: trachea midline - Respiratory normal respiratory effort, clear to auscultation - Cardiovascular Cardiovascular exam: Present: RRR - Abdomen Abdomen: Present: bowel sounds present, soft, tender (mild, expected post operative tenderness), wound (Midline with wound vac intact (50ml past 24hrs; MANUEL RLQ with serous drainage noted (55ml past 24 hours)) - Integumentary no rash - Neurologic CN 2-12 grossly intact - Musculoskeletal normal posture - Psychiatric oriented to time, oriented to person, oriented to place, speech is normal, memory intact - Labs 10/22/16 02:58 10/22/16 02:58 Diabetes panel 10/22/16 Range/Units 02:58 Sodium 139 (136-145) mEq/L Potassium 3.1 L (3.5-4.5) mEq/L Chloride 109 (98-109) mEq/L Carbon Dioxide 19 (19-29) mEq/L BUN 10 (7-20) mg/dL Creatinine 0.98 (0.57-1.11) mg/dL Glucose 104 H (70-99) mg/dL Calcium 7.8 L (8.6-10.8) mg/dL Calcium panel 10/22/16 10/22/16 Range/Units 02:58 02:58 Calcium 7.8 L (8.6-10.8) mg/dL Phosphorus 2.8 (2.3-4.7) mg/dL Pituitary panel 10/22/16 Range/Units 02:58 Sodium 139 (136-145) mEq/L Potassium 3.1 L (3.5-4.5) mEq/L Chloride 109 (98-109) mEq/L Carbon Dioxide 19 (19-29) mEq/L BUN 10 (7-20) mg/dL Creatinine 0.98 (0.57-1.11) mg/dL Glucose 104 H (70-99) mg/dL Calcium 7.8 L (8.6-10.8) mg/dL Adrenal panel 10/22/16 Range/Units 02:58 Sodium 139 (136-145) mEq/L Potassium 3.1 L (3.5-4.5) mEq/L Chloride 109 (98-109) mEq/L Carbon Dioxide 19 (19-29) mEq/L BUN 10 (7-20) mg/dL Creatinine 0.98 (0.57-1.11) mg/dL Glucose 104 H (70-99) mg/dL Calcium 7.8 L (8.6-10.8) mg/dL - VTE Documentation of Mechanical Device: Intermittent pneumatic compression device Consult Discharge Plan - Plan Referrals: Michael Negron MD [Partnered Physician] - 10/19/16 10:35 am Alda Arroyo MD [Primary Care Provider] - <Traci Hopkins - Last Filed: 10/23/16 08:29> Time of Encounter: 10:00 - Assessment and Plan (1) Leukocytosis Current Visit: Yes Status: Acute continue to trend, likely leukomoid reaction Qualifiers: Leukocytosis type: unspecified Qualified Code(s): D72.829 - Elevated white blood cell count, unspecified (2) Perforated abdominal viscus Current Visit: Yes Status: Acute continue regular diet wound vac changes dc MANUEL drain prn pain control immodium for diarrhea (3) Ileus, postoperative Current Visit: Yes Status: Resolved resolved (4) DVT prophylaxis Current Visit: Yes Status: Acute (5) Acute kidney injury Current Visit: Yes Status: Acute (6) Diarrhea Current Visit: Yes Status: Acute cdiff negative ok for immodium Qualifiers: Diarrhea type: unspecified type Qualified Code(s): R19.7 - Diarrhea, unspecified Subjective Patient reports: no new complaints, feels better, pain is less Objective Vital Signs - Last 8 Hours Temp Pulse Resp BP Pulse Ox 10/23/16 07:10 98.7 F 71 14 150/79 96 Intake and Output 10/22/16 10/23/16 10/23/16 23:59 07:59 15:59 Intake Total 0 / 0 0 / 0 Output Total 0 / 0 0 / 0 Balance 0 / 0 0 / 0 Intake: Oral 0 / 0 0 / 0 Output: Urine 0 / 0 0 / 0 Other: Stool Size Small Stool Consistency loose Stool Color Brown Yellow # Voids 1 # Bowel Movements 2 1 - General physical appearance well developed, well nourished, no distress - Eyes normal ocular movement - ENT normal mucosa, atraumatic, normocephalic - Neck Neck exam: trachea midline - Respiratory normal respiratory effort - Cardiovascular Cardiovascular exam: Present: RRR - Abdomen Abdomen: Present: bowel sounds present, soft - Integumentary no rash - Neurologic CN 2-12 grossly intact - Musculoskeletal normal posture - Psychiatric oriented to time, oriented to person, oriented to place - Labs 10/23/16 05:11 10/23/16 05:11 Diabetes panel 10/23/16 Range/Units 05:11 Sodium 141 (136-145) mEq/L Potassium 2.8 L (3.5-4.5) mEq/L Chloride 110 H (98-109) mEq/L Carbon Dioxide 19 (19-29) mEq/L BUN 9 (7-20) mg/dL Creatinine 0.98 (0.57-1.11) mg/dL Glucose 100 H (70-99) mg/dL Calcium 7.9 L (8.6-10.8) mg/dL Calcium panel 10/23/16 Range/Units 05:11 Calcium 7.9 L (8.6-10.8) mg/dL Pituitary panel 10/23/16 Range/Units 05:11 Sodium 141 (136-145) mEq/L Potassium 2.8 L (3.5-4.5) mEq/L Chloride 110 H (98-109) mEq/L Carbon Dioxide 19 (19-29) mEq/L BUN 9 (7-20) mg/dL Creatinine 0.98 (0.57-1.11) mg/dL Glucose 100 H (70-99) mg/dL Calcium 7.9 L (8.6-10.8) mg/dL Adrenal panel 10/23/16 Range/Units 05:11 Sodium 141 (136-145) mEq/L Potassium 2.8 L (3.5-4.5) mEq/L Chloride 110 H (98-109) mEq/L Carbon Dioxide 19 (19-29) mEq/L BUN 9 (7-20) mg/dL Creatinine 0.98 (0.57-1.11) mg/dL Glucose 100 H (70-99) mg/dL Calcium 7.9 L (8.6-10.8) mg/dL
--- NOTE | 2016-10-22 17:22 | Electrocardiograph Report ---
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
--- NOTE | 2016-10-22 17:23 | Event Note ---
Date of Encounter: 10/22/16 Time of Encounter: 17:22 Doing well except for diarrhea. The diarrhea is improved today from yesterday. No n/v. Ambulating. Incisions lood good with wound vac in place. Will cont. to follow.
[2016-10-23] MEDS: *HR* Heparin 5,000 UNIT/ML VIAL SQ SCH ×2 (05:38→16:37)
[2016-10-23] MEDS: *HR* OxyCODONE/APAP 5/325 TABLET PO PRN ×3 (05:38→20:39)
[2016-10-23 06:01] LABS: Basophils # 0.1 K/mcL (0.0-0.2); Basophils % 0.6 %; Eosinophils # 0.1 K/mcL (0.0-0.6); Eosinophils % 1.3 %; Hematocrit 27.7 % (35.3-44.9); Hemoglobin 9.2 g/dL (11.5-15.4); Immature Granulocytes % 1.2 % (0-4); Lymphocytes # 1.4 K/mcL (0.6-4.6); Mean Corpuscular HGB Conc 33.2 g/dL (31.6-35.5); Mean Corpuscular Volume 99.3 fL (83.0-100.0); Mean Platelet Volume 9.6 fL (9.4-12.4); Monocytes # 0.8 K/mcL (0.0-1.3); Monocytes % 6.9 %; Neutrophils # 8.5 K/mcL (1.6-8.9); Platelet Count 128 K/mcL (140-400); Red Blood Count 2.79 M/mcL (3.82-4.97); Red Cell Distribution Width 14.5 % (11.5-14.5)
[2016-10-23 06:17] LABS: BUN/Creatinine Ratio 9 (6-26); Blood Urea Nitrogen 9 mg/dL (7-20); Calcium 7.9 mg/dL (8.6-10.8); Carbon Dioxide 19 mEq/L (19-29); Chloride 110 mEq/L (98-109); Glucose 100 mg/dL (70-99); Osmolality,Calculated 291 (280-300); Potassium 2.8 mEq/L (3.5-4.5); Sodium 141 mEq/L (136-145); eGFR For African Americans > 60 (> 60); eGFR For Non-African Americans 58 (> 60)
[2016-10-23] MEDS: Erythromycin OPTH Oint RIGHT EYE SCH ×3 (09:33→20:40)
[2016-10-23] MEDS: Ondansetron 4 MG/2 ML VIAL IVP PRN (09:47)
[2016-10-23] MEDS: Ipratropium/Albuterol Neb 3 ML IH SCH ×2 (10:38→20:30)
--- NOTE | 2016-10-23 12:46 | General Surgery Progress Note ---
<UptonAlexandra Radha - Last Filed: 10/23/16 12:44> Date of Encounter: 10/23/16 Time of Encounter: 11:15 - Assessment and Plan (1) Perforated abdominal viscus Current Visit: Yes Status: Acute POD #12 Exploratory laparotomy, lysis of adhesions, ileocectomy, wound vac placement with Dr. Hopkins Tolerating regular diet Supportive care/Pain control Wound vac to Midline- change every MWF per surgery team Repeat am labs Incentive Spirometer every 1 hour while awake Increase activity as tolerated- Out of bed to chair and ambulate PT/OT daily Discharge planning- will need home health care for wound vac management- [facility] set up (2) Leukocytosis Current Visit: Yes Status: Resolved 11,000 today Repeat labs in the am Qualifiers: Leukocytosis type: unspecified Qualified Code(s): D72.829 - Elevated white blood cell count, unspecified (3) Acute kidney injury Current Visit: Yes Status: Resolved Resolved Avoid nephrotoxic medications Repeat labs in the am (4) Hyperglycemia Current Visit: Yes Status: Acute Improved- 100 this morning No insulin coverage required with discontinuation of TPN Will continue to monitor and adjust treatment as necessary (5) Hypokalemia Current Visit: Yes Status: Acute Replace potassium Repeat labs in the am (6) Diarrhea Current Visit: Yes Status: Acute Mild improvement with imodium Change imodium to every 2 hours prn Qualifiers: Diarrhea type: unspecified type Qualified Code(s): R19.7 - Diarrhea, unspecified (7) DVT prophylaxis Current Visit: Yes Status: Acute Heparin 5,000 units SQ twice daily for DVT prophylaxis EPCDs bilateral lower extremities for DVT prophylaxis Subjective Patient reports: feels better, still having pain, pain is less, tolerating a regular diet, voiding w/o difficulty, flatus, bowel movement, diarrhea (Patient states that immodium has helped with diarrhea), vomiting (this morning), afebrile Objective Vital Signs - Last 8 Hours Temp Pulse Resp BP Pulse Ox 10/23/16 09:42 98.7 F 80 14 132/72 96 10/23/16 07:10 98.7 F 71 14 150/79 96 Intake and Output 10/22/16 10/23/16 10/23/16 23:59 07:59 15:59 Intake Total 0 / 0 0 / 0 240 / 240 Output Total 0 / 0 0 / 0 200 / 200 Balance 0 / 0 0 / 0 40 / 40 Intake: Oral 0 / 0 0 / 0 240 / 240 Output: Urine 0 / 0 0 / 0 200 / 200 Wound Drainage 0 / 0 Right Lower Abdomen 0 / 0 Other: Meal Breakfast Percent of Meal Consumed 50% Stool Size Small Small Stool Consistency loose loose Stool Color Brown Brown Yellow # Voids 1 # Bowel Movements 2 1 - General physical appearance well developed, no distress - Eyes normal ocular movement - ENT normal mucosa, atraumatic, normocephalic - Neck Neck exam: trachea midline - Respiratory normal respiratory effort, clear to auscultation - Cardiovascular Cardiovascular exam: Present: RRR - Abdomen Abdomen: Present: bowel sounds present, soft, tender (minimal, expected post- operative tenderness), wound (MANUEL drain to bulb suction with serous drainage noted (d/c today)) - Incision Incision: Present: open (Wound vac to midline with serous drainage noted. Changed 10/22/16) - Integumentary no rash - Neurologic CN 2-12 grossly intact - Musculoskeletal normal gait, normal posture - Psychiatric oriented to time, oriented to person, oriented to place, speech is normal, memory intact - Labs 10/23/16 05:11 10/23/16 05:11 Diabetes panel 10/23/16 Range/Units 05:11 Sodium 141 (136-145) mEq/L Potassium 2.8 L (3.5-4.5) mEq/L Chloride 110 H (98-109) mEq/L Carbon Dioxide 19 (19-29) mEq/L BUN 9 (7-20) mg/dL Creatinine 0.98 (0.57-1.11) mg/dL Glucose 100 H (70-99) mg/dL Calcium 7.9 L (8.6-10.8) mg/dL Calcium panel 10/23/16 Range/Units 05:11 Calcium 7.9 L (8.6-10.8) mg/dL Pituitary panel 10/23/16 Range/Units 05:11 Sodium 141 (136-145) mEq/L Potassium 2.8 L (3.5-4.5) mEq/L Chloride 110 H (98-109) mEq/L Carbon Dioxide 19 (19-29) mEq/L BUN 9 (7-20) mg/dL Creatinine 0.98 (0.57-1.11) mg/dL Glucose 100 H (70-99) mg/dL Calcium 7.9 L (8.6-10.8) mg/dL Adrenal panel 10/23/16 Range/Units 05:11 Sodium 141 (136-145) mEq/L Potassium 2.8 L (3.5-4.5) mEq/L Chloride 110 H (98-109) mEq/L Carbon Dioxide 19 (19-29) mEq/L BUN 9 (7-20) mg/dL Creatinine 0.98 (0.57-1.11) mg/dL Glucose 100 H (70-99) mg/dL Calcium 7.9 L (8.6-10.8) mg/dL - VTE Documentation of Mechanical Device: Intermittent pneumatic compression device Consult Discharge Plan - Plan Referrals: Michael Negron MD [Partnered Physician] - 10/19/16 10:35 am Alda Arroyo MD [Primary Care Provider] - - Attending Attestation I examined this patient and my medical decision-making was reviewed with the WOOL BRUSHER/PA/Advanced Practice Nurse/Resident Physician. I agree with the documented findings, disposition and treatment plan as described except to the extent set forth below. <Traci Hopkins - Last Filed: 10/23/16 15:18> Time of Encounter: 14:25 - Assessment and Plan (1) Leukocytosis Current Visit: Yes Status: Resolved normal wbc today Qualifiers: Leukocytosis type: unspecified Qualified Code(s): D72.829 - Elevated white blood cell count, unspecified (2) Perforated abdominal viscus Current Visit: Yes Status: Acute (3) DVT prophylaxis Current Visit: Yes Status: Acute (4) Acute kidney injury Current Visit: Yes Status: Resolved (5) Diarrhea Current Visit: Yes Status: Acute will try lomotil Qualifiers: Diarrhea type: unspecified type Qualified Code(s): R19.7 - Diarrhea, unspecified Subjective Narrative: tolerating regular diet pain controlled still having diarrhea but is less but still very bothersome no nausea Objective Vital Signs - Last 8 Hours Temp Pulse Resp BP Pulse Ox 10/23/16 14:36 98.1 F 77 16 144/72 98 10/23/16 09:42 98.7 F 80 14 132/72 96 Intake and Output 01/23/17 01/24/17 01/24/17 23:59 07:59 15:59 Intake Total 0 / 0 0 / 0 360 / 360 Output Total 0 / 0 0 / 0 200 / 200 Balance 0 / 0 0 / 0 160 / 160 Intake: Oral 0 / 0 0 / 0 360 / 360 Output: Urine 0 / 0 0 / 0 200 / 200 Wound Drainage 0 / 0 Right Lower Abdomen 0 / 0 Other: Meal Lunch Percent of Meal Consumed 0% Stool Size Small Small Stool Consistency loose liquid Stool Color Brown Brown Yellow # Voids 1 1 # Bowel Movements 2 1 - General physical appearance well developed, no distress - Eyes PERRL, normal ocular movement - ENT normal mucosa, atraumatic, normocephalic - Neck Neck exam: trachea midline - Respiratory normal expansion, clear to auscultation - Cardiovascular Cardiovascular exam: Present: RRR - Abdomen Abdomen: Present: bowel sounds present, soft, tender, wound - Incision Incision: Present: open - Integumentary no rash, no growths - Neurologic CN 2-12 grossly intact - Musculoskeletal normal gait, normal posture - Psychiatric oriented to time, oriented to person, oriented to place, memory intact - Labs 10/23/16 05:11 10/23/16 05:11 = Short CBC 10/23/16 Range/Units 05:11 WBC 11.0 (4.3-11.1) K/mcL Hgb 9.2 L (11.5-15.4) g/dL Hct 27.7 L (35.3-44.9) % Plt Count 128 L (140-400) K/mcL Neutrophils # 8.5 (1.6-8.9) K/mcL BMP 10/23/16 Range/Units 05:11 Sodium 141 (136-145) mEq/L Potassium 2.8 L (3.5-4.5) mEq/L Chloride 110 H (98-109) mEq/L Carbon Dioxide 19 (19-29) mEq/L BUN 9 (7-20) mg/dL Creatinine 0.98 (0.57-1.11) mg/dL Glucose 100 H (70-99) mg/dL Calcium 7.9 L (8.6-10.8) mg/dL Vital Signs Temp Pulse Resp BP Pulse Ox 10/23/16 14:36 98.1 F 77 16 144/72 98 10/23/16 09:42 98.7 F 80 14 132/72 96 10/23/16 07:10 98.7 F 71 14 150/79 96 10/22/16 23:39 98.9 F 69 16 138/77 97 10/22/16 18:50 98.8 F 74 16 160/84 95 Intake and Output 10/22/16 10/23/16 10/23/16 23:59 07:59 15:59 Intake Total 0 / 0 0 / 0 360 / 360 Output Total 0 / 0 0 / 0 200 / 200 Balance 0 / 0 0 / 0 160 / 160 Intake: Oral 0 / 0 0 / 0 360 / 360 Output: Urine 0 / 0 0 / 0 200 / 200 Wound Drainage 0 / 0 Right Lower Abdomen 0 / 0 Other: Meal Lunch Percent of Meal Consumed 0% Stool Size Small Small Stool Consistency loose liquid Stool Color Brown Brown Yellow # Voids 1 1 # Bowel Movements 2 1
--- NOTE | 2016-10-23 16:41 | Event Note ---
Date of Encounter: 10/23/16 Time of Encounter: 16:39 Pt overall doing well except for still with alot of diarrhea. Was switched to Lomotil today and thinks may be helping a bit more than the immodium. Good pain control. Incisions look good. Will cont. to follow.
[2016-10-24] MEDS: *HR* OxyCODONE/APAP 5/325 TABLET PO PRN ×5 (03:24→22:33)
[2016-10-24] MEDS: *HR* Heparin 5,000 UNIT/ML VIAL SQ SCH ×2 (06:02→18:35)
[2016-10-24 06:30] LABS: Basophils % 0.7 %; Hemoglobin 8.8 g/dL (11.5-15.4)
[2016-10-24 06:32] LABS: Basophils # 0.1 K/mcL (0.0-0.2); Eosinophils # 0.2 K/mcL (0.0-0.6); Eosinophils % 1.9 %; Hematocrit 26.4 % (35.3-44.9); Immature Granulocytes % 0.8 % (0-4); Immature Platelets 3.1 % (1.1-6.1); Lymphocytes # 1.3 K/mcL (0.6-4.6); Lymphocytes % 14.1 %; Mean Corpuscular HGB Conc 33.3 g/dL (31.6-35.5); Mean Corpuscular Hemoglobin 33.2 pg (28.0-33.3); Mean Corpuscular Volume 99.6 fL (83.0-100.0); Mean Platelet Volume 9.4 fL (9.4-12.4); Monocytes # 0.8 K/mcL (0.0-1.3); Monocytes % 8.1 %; Neutrophils # 7.1 K/mcL (1.6-8.9); Platelet Count 125 K/mcL (140-400); Red Blood Count 2.65 M/mcL (3.82-4.97); Red Cell Distribution Width 14.7 % (11.5-14.5); Segmented Neutrophils % 74.4 %
[2016-10-24 06:43] LABS: BUN/Creatinine Ratio 8 (6-26); Blood Urea Nitrogen 7 mg/dL (7-20); Calcium 7.8 mg/dL (8.6-10.8); Carbon Dioxide 21 mEq/L (19-29); Chloride 109 mEq/L (98-109); Glucose 98 mg/dL (70-99); Magnesium 1.4 mg/dL (1.6-2.6); Osmolality,Calculated 290 (280-300); Potassium 3.3 mEq/L (3.5-4.5); Sodium 141 mEq/L (136-145); eGFR For African Americans > 60 (> 60); eGFR For Non-African Americans > 60 (> 60)
[2016-10-24] MEDS: Diphenoxylate/Atropine 1 TAB TABLET PO PRN ×2 (07:52→22:40)
[2016-10-24] MEDS: Erythromycin OPTH Oint RIGHT EYE SCH ×3 (09:17→21:09)
[2016-10-24] MEDS: Ipratropium/Albuterol Neb 3 ML IH SCH ×2 (10:18→23:15)
--- NOTE | 2016-10-24 10:39 | General Surgery Progress Note ---
<Anthony Kaur - Last Filed: 10/24/16 10:36> Date of Encounter: 10/24/16 Time of Encounter: 08:40 - Assessment and Plan (1) Perforated abdominal viscus Current Visit: Yes Status: Acute POD #13 Exploratory laparotomy, lysis of adhesions, ileocectomy, wound vac placement with Dr. Hopkins Tolerating regular diet Supportive care/Pain control Wound vac to Midline- change every MWF per surgery team Repeat am labs Incentive Spirometer every 1 hour while awake Increase activity as tolerated- Out of bed to chair and ambulate PT/OT daily Discharge planning- will need home health care for wound vac management- [facility] set up (2) Leukocytosis Current Visit: Yes Status: Resolved Resolved with WBC 9,500. Qualifiers: Leukocytosis type: unspecified Qualified Code(s): D72.829 - Elevated white blood cell count, unspecified (3) Acute kidney injury Current Visit: Yes Status: Resolved Resolved Avoid nephrotoxic medications (4) Hyperglycemia Current Visit: Yes Status: Acute Resolved No insulin coverage required with discontinuation of TPN Will continue to monitor and adjust treatment as necessary (5) Hypokalemia Current Visit: Yes Status: Acute Improved K+ 2.8>3.3 Repeat labs in AM. (6) Diarrhea Current Visit: Yes Status: Acute Patient states slight improvement with switching from imodium to lomotil. Still notes 6 BM this morning before breakfast. Qualifiers: Diarrhea type: unspecified type Qualified Code(s): R19.7 - Diarrhea, unspecified (7) DVT prophylaxis Current Visit: Yes Status: Acute Heparin 5,000 units SQ twice daily for DVT prophylaxis EPCDs bilateral lower extremities for DVT prophylaxis Subjective Patient reports: no new complaints, still having pain, tolerating a regular diet , flatus, bowel movement, diarrhea (States she had 6 BM before 8:30AM.), afebrile Objective Vital Signs - Last 8 Hours Temp Pulse Resp BP Pulse Ox 10/24/16 07:09 98.1 F 77 14 144/69 97 10/24/16 04:15 98.4 F 74 16 124/66 96 Intake and Output 10/23/16 10/24/16 10/24/16 23:59 07:59 15:59 Intake Total 720 / 720 240 / 240 240 / 240 Output Total 400 / 400 0 / 0 Balance 320 / 320 240 / 240 240 / 240 Intake: Oral 720 / 720 240 / 240 240 / 240 Output: Urine 400 / 400 0 / 0 Other: Meal Dinner Breakfast Percent of Meal Consumed 75% 15% Stool Size Small Stool Consistency loose Stool Characteristics Normal for Patient Stool Color Brown # Voids 2 1 # Bowel Movements 1 1 - General physical appearance well developed, no distress - Eyes normal ocular movement - ENT normal mucosa, atraumatic, normocephalic - Neck Neck exam: trachea midline - Respiratory normal respiratory effort, clear to auscultation - Cardiovascular Cardiovascular exam: Present: RRR - Abdomen Abdomen: Present: bowel sounds present, soft, tender (minimal, expected post- operative tenderness), wound (wound vac to midline.) - Incision Incision: Present: open (wound vac to midline) - Integumentary no rash - Neurologic CN 2-12 grossly intact - Musculoskeletal normal posture - Psychiatric oriented to time, oriented to person, oriented to place, speech is normal, memory intact - Labs 10/24/16 05:49 10/24/16 05:49 Diabetes panel 10/24/16 Range/Units 05:49 Sodium 141 (136-145) mEq/L Potassium 3.3 L (3.5-4.5) mEq/L Chloride 109 (98-109) mEq/L Carbon Dioxide 21 (19-29) mEq/L BUN 7 (7-20) mg/dL Creatinine 0.89 (0.57-1.11) mg/dL Glucose 98 (70-99) mg/dL Calcium 7.8 L (8.6-10.8) mg/dL Calcium panel 10/24/16 Range/Units 05:49 Calcium 7.8 L (8.6-10.8) mg/dL Pituitary panel 10/24/16 Range/Units 05:49 Sodium 141 (136-145) mEq/L Potassium 3.3 L (3.5-4.5) mEq/L Chloride 109 (98-109) mEq/L Carbon Dioxide 21 (19-29) mEq/L BUN 7 (7-20) mg/dL Creatinine 0.89 (0.57-1.11) mg/dL Glucose 98 (70-99) mg/dL Calcium 7.8 L (8.6-10.8) mg/dL Adrenal panel 10/24/16 Range/Units 05:49 Sodium 141 (136-145) mEq/L Potassium 3.3 L (3.5-4.5) mEq/L Chloride 109 (98-109) mEq/L Carbon Dioxide 21 (19-29) mEq/L BUN 7 (7-20) mg/dL Creatinine 0.89 (0.57-1.11) mg/dL Glucose 98 (70-99) mg/dL Calcium 7.8 L (8.6-10.8) mg/dL - VTE Documentation of Mechanical Device: Intermittent pneumatic compression device Consult Discharge Plan - Plan Referrals: Michael Negron MD [Partnered Physician] - Alda Arroyo MD [Primary Care Provider] - Prescriptions: Diphenoxylate/Atropine [Lomotil 2.5 mg/0.025 mg] 2 tab PO QID PRN #40 tablet PRN Reason: Diarrhea OxyCODONE/APAP 5/325 [Percocet 5/325 MG] 1 each PO Q4H PRN #30 tablet PRN Reason: Pain <Traci Hopkins - Last Filed: 10/26/16 12:50> - Assessment and Plan (1) Leukocytosis Current Visit: Yes Status: Resolved Qualifiers: Leukocytosis type: unspecified Qualified Code(s): D72.829 - Elevated white blood cell count, unspecified (2) Perforated abdominal viscus Current Visit: Yes Status: Acute lomotil for diarrhea (3) DVT prophylaxis Current Visit: Yes Status: Acute (4) Acute kidney injury Current Visit: Yes Status: Resolved (5) Diarrhea Current Visit: Yes Status: Acute Qualifiers: Diarrhea type: unspecified type Qualified Code(s): R19.7 - Diarrhea, unspecified Subjective Patient reports: no new complaints, still having pain, pain is less, tolerating a regular diet, flatus, diarrhea (somewhat better), afebrile Objective Vital Signs - Last 8 Hours Temp Pulse Resp BP Pulse Ox 10/26/16 11:00 97.8 F 71 16 127/69 97 10/26/16 08:00 99 F 75 16 157/77 97 Intake and Output 10/25/16 10/26/16 10/26/16 23:59 07:59 15:59 Intake Total 120 / 120 200 / 200 360 / 360 Output Total 0 / 0 0 / 0 0 / 0 Balance 120 / 120 200 / 200 360 / 360 Intake: Oral 120 / 120 200 / 200 360 / 360 Output: Urine 0 / 0 Wound Drainage 0 / 0 0 / 0 midline abdomen 0 / 0 0 / 0 Other: Meal Dinner Breakfast Percent of Meal Consumed 25% 50% Stool Size Small Small Stool Consistency loose loose Stool Color Brown Brown # Voids 2 1 # Bowel Movements 1 1 Weight 85.2 kg Patient Weight 10/26/16 23:59 Weight 85.2 kg - General physical appearance well developed, no distress - Eyes PERRL, normal ocular movement - ENT normal mucosa, atraumatic, normocephalic - Neck Neck exam: trachea midline - Respiratory normal expansion, clear to auscultation - Cardiovascular Cardiovascular exam: Present: RRR - Abdomen Abdomen: Present: bowel sounds present, soft, tender - Incision Incision: Present: open - Integumentary no rash, no growths - Neurologic CN 2-12 grossly intact - Musculoskeletal normal posture - Psychiatric oriented to time, oriented to person, memory intact - Labs 10/25/16 07:08 10/26/16 05:13 Diabetes panel 10/26/16 Range/Units 05:13 Sodium 139 (136-145) mEq/L Potassium 3.4 L (3.5-4.5) mEq/L Chloride 108 (98-109) mEq/L Carbon Dioxide 20 (19-29) mEq/L BUN 10 (7-20) mg/dL Creatinine 0.90 (0.57-1.11) mg/dL Glucose 101 H (70-99) mg/dL Calcium 8.0 L (8.6-10.8) mg/dL Calcium panel 10/26/16 Range/Units 05:13 Calcium 8.0 L (8.6-10.8) mg/dL Pituitary panel 10/26/16 Range/Units 05:13 Sodium 139 (136-145) mEq/L Potassium 3.4 L (3.5-4.5) mEq/L Chloride 108 (98-109) mEq/L Carbon Dioxide 20 (19-29) mEq/L BUN 10 (7-20) mg/dL Creatinine 0.90 (0.57-1.11) mg/dL Glucose 101 H (70-99) mg/dL Calcium 8.0 L (8.6-10.8) mg/dL Adrenal panel 10/26/16 Range/Units 05:13 Sodium 139 (136-145) mEq/L Potassium 3.4 L (3.5-4.5) mEq/L Chloride 108 (98-109) mEq/L Carbon Dioxide 20 (19-29) mEq/L BUN 10 (7-20) mg/dL Creatinine 0.90 (0.57-1.11) mg/dL Glucose 101 H (70-99) mg/dL Calcium 8.0 L (8.6-10.8) mg/dL - Attending Attestation I examined this patient and my medical decision-making was reviewed with the GLASS CUTTER HELPER/PA/Advanced Practice Nurse/Resident Physician. I agree with the documented findings, disposition and treatment plan as described except to the extent set forth below.
[2016-10-25] MEDS: *HR* OxyCODONE/APAP 5/325 TABLET PO PRN ×6 (02:39→21:51)
[2016-10-25] MEDS: *HR* Heparin 5,000 UNIT/ML VIAL SQ SCH ×2 (05:36→17:15)
[2016-10-25 07:15] LABS: Basophils # 0.1 K/mcL (0.0-0.2); Basophils % 1.2 %; Eosinophils # 0.2 K/mcL (0.0-0.6); Eosinophils % 2.6 %; Hematocrit 28.4 % (35.3-44.9); Hemoglobin 9.4 g/dL (11.5-15.4); Immature Granulocytes % 0.6 % (0-4); Immature Platelets 2.7 % (1.1-6.1); Lymphocytes # 1.5 K/mcL (0.6-4.6); Lymphocytes % 18.2 %; Mean Corpuscular HGB Conc 33.1 g/dL (31.6-35.5); Mean Corpuscular Volume 99.6 fL (83.0-100.0); Mean Platelet Volume 9.2 fL (9.4-12.4); Monocytes # 0.6 K/mcL (0.0-1.3); Monocytes % 7.8 %; Neutrophils # 5.7 K/mcL (1.6-8.9); Platelet Count 110 K/mcL (140-400); Red Blood Count 2.85 M/mcL (3.82-4.97); Red Cell Distribution Width 14.7 % (11.5-14.5); Segmented Neutrophils % 69.6 %
[2016-10-25 07:26] LABS: BUN/Creatinine Ratio 8 (6-26); Blood Urea Nitrogen 7 mg/dL (7-20); Carbon Dioxide 19 mEq/L (19-29); Chloride 109 mEq/L (98-109); Glucose 137 mg/dL (70-99); Osmolality,Calculated 288 (280-300); Potassium 3.1 mEq/L (3.5-4.5); Sodium 139 mEq/L (136-145); eGFR For African Americans > 60 (> 60); eGFR For Non-African Americans > 60 (> 60)
[2016-10-25] MEDS: Erythromycin OPTH Oint RIGHT EYE SCH ×3 (07:51→21:51)
[2016-10-25] MEDS ORDERED: Magnesium Sulfate 2 GM in D5% in Water 100 ML IVPB ONE (08:49)
[2016-10-25] MEDS: Diphenoxylate/Atropine 1 TAB TABLET PO PRN (10:09)
[2016-10-25] MEDS: Ipratropium/Albuterol Neb 3 ML IH SCH ×2 (11:06→22:22)
--- NOTE | 2016-10-25 11:28 | Discharge Summary ---
<Anthony Kaur - Last Filed: 10/25/16 13:30> Date of Encounter: 10/25/16 Time of Encounter: 08:10 - Discharge Diagnosis (1) Perforated abdominal viscus Priority: Primary Status: Acute (2) Leukocytosis Priority: Secondary Status: Resolved Qualifiers: Leukocytosis type: unspecified Qualified Code(s): D72.829 - Elevated white blood cell count, unspecified (3) Acute kidney injury Priority: Secondary Status: Resolved (4) Hyperglycemia Priority: Secondary Status: Resolved (5) Hypokalemia Priority: Secondary Status: Acute (6) Diarrhea Priority: Secondary Status: Acute Qualifiers: Diarrhea type: unspecified type Qualified Code(s): R19.7 - Diarrhea, unspecified (7) DVT prophylaxis Priority: Secondary Status: Acute - Discharge Medications Prescriptions: Diphenoxylate/Atropine [Lomotil 2.5 mg/0.025 mg] 2 tab PO QID PRN #40 tablet PRN Reason: Diarrhea OxyCODONE/APAP 5/325 [Percocet 5/325 MG] 1 each PO Q4H PRN #30 tablet PRN Reason: Pain Home Medications: Furosemide [Lasix] 40 mg PO BID 06/26/16 [History] Ibuprofen [Advil] 200 mg PO Q4-6H PRN 06/26/16 [History] Potassium Gluconate 75 mg PO DAILY 06/26/16 [History] Diphenoxylate/Atropine [Lomotil 2.5 mg/0.025 mg] 2 tab PO QID PRN #40 tablet [Rx] OxyCODONE/APAP 5/325 [Percocet 5/325 MG] 1 each PO Q4H PRN #30 tablet 10/25/16 [ Rx] Allergies/Adverse Reactions: Allergies codeine Allergy (Verified 07/20/16 07:19) Hives patient states reaction was in 1983 promethazine [From Phenergan] Adverse Reaction (Verified 10/17/16 03:52) Confusion General Surgery Exam Initial Vital Signs Temp Pulse Resp BP Pulse Ox 97.6 F 75 18 122/71 98 10/08/16 08:27 10/08/16 08:27 10/08/16 08:27 10/08/16 08:27 10/08/16 08:27 - General physical appearance well developed, well nourished, no distress - Eyes normal ocular movement - ENT normal mucosa, atraumatic, normocephalic - Neck trachea midline - Respiratory normal respiratory effort, clear to auscultation - Cardiovascular Cardiovascular exam: Present: RRR - Abdomen Abdomen general surgery: Present: bowel sounds present, soft, tender Abdominal Tenderness: Present: RLQ - Incision Incision: Present: clean and dry, open (midline wound vac) - Integumentary Integumentary general surgery: Present: warm and dry, no abnormal pigmentation - Neurologic Present: CN 2-12 grossly intact - Psychiatric Psychiatric general surgery: Present: appropriate, oriented to person, oriented to place, oriented to time, speech is normal, memory intact Date of admission: 10/11/16 09:30 Primary care physician: Alda Shafer Consults: 10/11/16 16:08 Consult to [employer] [CONS] Routine Reason for SW Consult: discharge planning, will need home care Will need home wound vac 10/12/16 10:16 consult to jacquard card cutter [Consult to Nutrition] [CONS] Routine Comment: Total fluid rate 110ml/hour (MIV + TPN) Consulting Provider: NUTRITION Reason for Dietary Consult: TPN Start and Manage 10/12/16 10:17 Consult to Invasive Line Access Team [CONS] Routine Reason for Consult: PICC line placement Line Type: PICC PICC line indications: Parental nutrition Time Notified: 10:17 10/12/16 11:16 Consult to Invasive Line Access Team [CONS] Routine Reason for Consult: Picc Line Insertion Line Type: PICC 10/12/16 15:26 Consult to Physical Therapy [CONS] Routine Comment: Evaluate, develop and implement POC OT [Consult to Occupational Therapy] [CONS] Routine Comment: Evaluate, develop and implement POC Discharging clinician: Traci Hopkins - Patient Status Disposition: Home Health Service Condition: Good Functional capacity at discharge: independent ambulation Overall status at discharge: patient is progressing back to baseline - Discharge Instructions Follow Up With: Michael Negron MD [Partnered Physician] - Alda Arroyo MD [Primary Care Provider] - Additional Instructions: #1 may shower, no tub bath for 2 weeks #2 wash incisions with soap and water and pat dry daily #3 no lifting, pushing, pulling more than 15 pounds for the next 6 weeks #4 no driving until off narcotics for 24 hours and able to safely react in the car #5 may climb stairs #6 Wound vac- change every MWF per home health care (medium black foam); 125mmHG continuous suction - Diet and Activity Activity: increase activity as tolerated Diet: advance to your usual diet - Hospital Course Hospital course: Ms. Robert is a 61 yo female with worsening pelvic prolapse and stress urinary incontinence who came to the hospital for planned TVT and laparotomy with planned sacrocolpopexy on 10/08/2016. During the surgery, there was question about possible bowel injury by the TVT needle. Dr. Hopkins was consulted intraoperatively. There were very dense adhesions throughout the abdomen, which Dr. Negron and Dr. Hopkins lysed, and no apparent bowel injury was identified. Decision was made not to proceed with sacrocolpopexy due to difficulty of dissection. There was no drainage of succus in the pelvis or smell of stool per Dr. Hopkins. POD #1 CT abdomen/pelvis showed post-operative changes. POD #2 patient had nausea and no flatus, then developed hematemesis with nausea. KUB findings favored ileus over obstruction due to recent surgery. POD #3 the patient started having stool coming out of her incision. CT abdomen/ pelvis showed progressive ascites with lower abdominal and pelvic peritoneal inflammation and anterior midline umbilical/infraumbilical 7.6x8.7 cam fluid collection that is suspected to relate to a mid to distal jejunal bowel perforation with progressive fluid and free air extending through a right paramedian abdominal wall defect into the right anterolateral pelvic wall. There is no formed abscess. Rectal contrast ...extends to the level of the cecum with no evidence of perforation. Exploratory laparotomy, lysis of adhesions, ileocectomy, wound vac placement with Dr. Hopkins on 10/11/16 There was a small bowel injury which was located and spilling succus. The area of small bowel injury was approximately a foot from the ileocecal valve and the terminal ileum was and had many adhesions to itself....cont - Time Spent with Patient Total time spent providing and/or coordinating discharge services: Less than 30 minutes Labs on day of discharge: Labs from last 24 hours 10/25/16 10/25/16 07:08 07:08 WBC 8.2 RBC 2.85 L Hgb 9.4 L Hct 28.4 L MCV 99.6 MCH 33.0 MCHC 33.1 RDW 14.7 H Plt Count 110 L MPV 9.2 L Immature Gran % 0.6 Seg Neutrophils % 69.6 Lymphocytes % 18.2 Monocytes % 7.8 Eosinophils % 2.6 Basophils % 1.2 Neutrophils # 5.7 Lymphocytes # 1.5 Monocytes # 0.6 Eosinophils # 0.2 Basophils # 0.1 Immature Plt Fraction 2.7 Sodium 139 Potassium 3.1 L Chloride 109 Carbon Dioxide 19 BUN 7 Creatinine 0.91 Est GFR ( Amer) > 60 Est GFR (Non-Af Amer) > 60 BUN/Creatinine Ratio 8 Glucose 137 H Calculated Osmolality 288 Calcium 8.0 L - Impressions ITS Impressions Chest X-Ray 10/09/16 20:24 IMPRESSION: Airspace opacities at the right parahilar region and left lung base, likely related to discoid atelectasis. Superimposed pneumonia is difficult to exclude. Low lung volumes. D/ / Terrence Abernathy MD / Terrence Abernathy MD Interpreting Provider: Terrence Abernathy MD Abdomen/Pelvis CT 10/09/16 23:30 IMPRESSION: Postsurgical changes compatible with pelvic surgery for TVT with vaginal cuff surgery. Free fluid and air are identified within the lower abdomen and pelvis likely related to surgery one day prior. While no gross bowel perforation is identified, a small bowel perforation is difficult to exclude. Short-term follow-up examination is suggested if the patient's symptomatology worsens. Cholecystectomy. Bibasilar atelectasis. Small right lower lobe pneumonia is not excluded however. The results of the examination were discussed with Dr. Negron on 10/10/2016 at 12:20 a.m. D/ / 10/10/2016 07:12:39 Raji Kidd MD / [facility] Interpreting Provider: Raji Kidd MD X-Ray 10/10/16 20:27 IMPRESSION: Nasogastric tube in appropriate position. Persistent dilated gas-filled small bowel up to 3.5 cm. Given the recent surgery, findings favor an ileus rather than obstruction. D/ / 10/10/2016 21:17:00 Vivek Bradley MD / [facility] Interpreting Provider: Vivek Bradley MD X-Ray 10/11/16 05:19 IMPRESSION: Enteric tube is in good position in the stomach. D/ / Vernon Andujar MD / Vernon Andujar MD Interpreting Provider: Vernon Andujar MD Abdomen/Pelvis CT 10/11/16 07:00 IMPRESSION: 1. Since the prior examination there is progressive ascites with lower abdominal and pelvic peritoneal inflammation and anterior midline umbilical/infraumbilical 7.6 x 8.7 cm fluid collection that is suspected to relate to a mid to distal jejunal bowel perforation with progressive fluid and free air extending through a right paramedian abdominal wall defect into the right anterolateral pelvic wall. There is no formed abscess. 2. Rectal contrast was given and extends to the level of the cecum with no evidence of rectal perforation. Results of the examination were discussed with Dr. Nolen and Dr. Hopkins at the time of the interpretation on 10/11/2016 at 8:21 a.m. D/ / 10/11/2016 08:43:28 Jeremiah Mccann MD / [facility] Interpreting Provider: Jeremiah Mccann MD Chest X-Ray 10/12/16 12:10 IMPRESSION: Low lung volumes. Linear atelectasis at the left lung base. Stable cardiomegaly. Lines and tubes as described above. A feeding tube is inserted with its tip in the fundus of the stomach and side hole likely in the region of the GE junction. Recommend more distal placement of the feeding tube. The results were sent to radiology results communication. D/ / Terrence Abernathy MD / Terrence Abernathy MD Interpreting Provider: Terrence Abernathy MD <Alexandra Nevarez - Last Filed: 10/26/16 14:39> - Discharge Diagnosis (1) Perforated abdominal viscus Status: Acute (2) Hyperglycemia Status: Resolved (3) Hypokalemia Status: Acute (4) Diarrhea Status: Acute Qualifiers: Diarrhea type: unspecified type Qualified Code(s): R19.7 - Diarrhea, unspecified (5) Hypomagnesemia Status: Acute (6) DVT prophylaxis Status: Acute General Surgery Exam Initial Vital Signs Temp Pulse Resp BP Pulse Ox 97.6 F 75 18 122/71 98 10/08/16 08:27 10/08/16 08:27 10/08/16 08:27 10/08/16 08:27 10/08/16 08:27 - General physical appearance well developed, well nourished, no distress - Eyes normal ocular movement - ENT normal mucosa, atraumatic, normocephalic - Neck trachea midline - Respiratory normal expansion, normal respiratory effort, clear to auscultation - Cardiovascular Cardiovascular exam: Present: RRR - Abdomen Abdomen general surgery: Present: bowel sounds present, soft, tender (expected post-operative tenderness), wound (Midline with wound vac intact) - Incision Incision: Present: open (midline wound vac with serous drainage noted) - Integumentary Integumentary general surgery: Present: warm and dry - Neurologic Present: CN 2-12 grossly intact - Musculoskeletal Present: normal gait, normal posture - Psychiatric Psychiatric general surgery: Present: appropriate, oriented to person, oriented to place, oriented to time, speech is normal, memory intact Date of admission: 10/11/16 09:30 Primary care physician: Alda Shafer Consults: 10/11/16 16:08 Consult to [employer] [CONS] Routine Reason for SW Consult: discharge planning, will need home care Will need home wound vac 10/12/16 10:16 consult to jacquard card cutter [Consult to Nutrition] [CONS] Routine Comment: Total fluid rate 110ml/hour (MIV + TPN) Consulting Provider: NUTRITION Reason for Dietary Consult: TPN Start and Manage 01/13/17 10:17 Consult to Invasive Line Access Team [CONS] Routine Reason for Consult: PICC line placement Line Type: PICC PICC line indications: Parental nutrition Time Notified: 10:17 10/12/16 11:16 Consult to Invasive Line Access Team [CONS] Routine Reason for Consult: Picc Line Insertion Line Type: PICC 10/12/16 15:26 Consult to Physical Therapy [CONS] Routine Comment: Evaluate, develop and implement POC OT [Consult to Occupational Therapy] [CONS] Routine Comment: Evaluate, develop and implement POC Anticipated date of discharge: 10/26/16 - Diet and Activity Activity: other (See additional instructions above) Diet: advance to your usual diet (Protein supplements TID (ensure or equivalent) ) - Hospital Course Hospital course: Post-operatively, the patient remained on bowel rest with NG tube to LIWS while awaiting return of bowel function. She also was maintained on IV anbitiotics for fecal contamination. She was started on TPN therapy for nutritional support. She did had a prolonged post-operative ileus and was started on reglan. With the start of reglan, the patient did begin to have bowel function. Her NG tube was discontinued with return of bowel function. She was slowly advanced as tolereated. She has experienced significant diarrhea with return of bowel function as well as electrolyte abnormalities. Her diarrhea is currently being controlled with Lomotil prn. She has had a wound vac to her midline wound which has been maintained since her exploratory laparotomy. Changes have been complete per the surgery team every MWF. She has been off of IV antibiotics for approximately 1 week and her WBC is normal. Her vital signs are stable and she is afebrile. Her pain is well controlled with oral pain medication. She has been working with therapy and she is ambulating without difficulty. Both of her surgical drains have been removed during her hospital course. We will begin discharge planning and plan for outpatient follow-up in the next 10-14 days. - Time Spent with Patient Total time spent providing and/or coordinating discharge services: Greater than 30 minutes Labs on day of discharge: Labs from last 24 hours 10/26/16 05:13 Sodium 139 Potassium 3.4 L Chloride 108 Carbon Dioxide 20 BUN 10 Creatinine 0.90 Est GFR ( Amer) > 60 Est GFR (Non-Af Amer) > 60 BUN/Creatinine Ratio 11 Glucose 101 H Calculated Osmolality 287 Calcium 8.0 L Magnesium 1.5 L - Impressions ITS Impressions Chest X-Ray 10/09/16 20:24 IMPRESSION: Airspace opacities at the right parahilar region and left lung base, likely related to discoid atelectasis. Superimposed pneumonia is difficult to exclude. Low lung volumes. D/ / Terrence Abernathy MD / Terrence Abernathy MD Interpreting Provider: Terrence Abernathy MD Abdomen/Pelvis CT 10/09/16 23:30 IMPRESSION: Postsurgical changes compatible with pelvic surgery for TVT with vaginal cuff surgery. Free fluid and air are identified within the lower abdomen and pelvis likely related to surgery one day prior. While no gross bowel perforation is identified, a small bowel perforation is difficult to exclude. Short-term follow-up examination is suggested if the patient's symptomatology worsens. Cholecystectomy. Bibasilar atelectasis. Small right lower lobe pneumonia is not excluded however. The results of the examination were discussed with Dr. Negron on 10/10/2016 at 12:20 a.m. D/ / 10/10/2016 07:12:39 Raji Kidd MD / [facility] Interpreting Provider: Raji Kidd MD X-Ray 10/10/16 20:27 IMPRESSION: Nasogastric tube in appropriate position. Persistent dilated gas-filled small bowel up to 3.5 cm. Given the recent surgery, findings favor an ileus rather than obstruction. D/ / 10/10/2016 21:17:00 Vivek Bradley MD / [facility] Interpreting Provider: Vivek Bradley MD X-Ray 10/11/16 05:19 IMPRESSION: Enteric tube is in good position in the stomach. D/ / Vernon Andujar MD / Vernon Andujar MD Interpreting Provider: Vernon Andujar MD Abdomen/Pelvis CT 10/11/16 07:00 IMPRESSION: 1. Since the prior examination there is progressive ascites with lower abdominal and pelvic peritoneal inflammation and anterior midline umbilical/infraumbilical 7.6 x 8.7 cm fluid collection that is suspected to relate to a mid to distal jejunal bowel perforation with progressive fluid and free air extending through a right paramedian abdominal wall defect into the right anterolateral pelvic wall. There is no formed abscess. 2. Rectal contrast was given and extends to the level of the cecum with no evidence of rectal perforation. Results of the examination were discussed with Dr. Nolen and Dr. Hopkins at the time of the interpretation on 10/11/2016 at 8:21 a.m. D/ / 10/11/2016 08:43:28 Jeremiah Mccann MD / [email or web address] Interpreting Provider: Jeremiah Mccann MD Chest X-Ray 10/12/16 12:10 IMPRESSION: Low lung volumes. Linear atelectasis at the left lung base. Stable cardiomegaly. Lines and tubes as described above. A feeding tube is inserted with its tip in the fundus of the stomach and side hole likely in the region of the GE junction. Recommend more distal placement of the feeding tube. The results were sent to radiology results communication. D/ / Terrence Abernathy MD / Terrence Abernathy MD Interpreting Provider: Terrence Abernathy MD - Attending Attestation I examined this patient and my medical decision-making was reviewed with the MORTGAGE CONSULTANT/PA/Advanced Practice Nurse/Resident Physician. I agree with the documented findings, disposition and treatment plan as described except to the extent set forth below.
--- NOTE | 2016-10-25 11:42 | Physician Discharge Referral ---
<Anthony Kaur - Last Filed: 10/25/16 11:36> Home Health/Hosp Referral Info Transfer to: Home Health Attending Provider: Traci Hopkins M.D. Provider in Charge Post Discharge: PCP - Diagnosis (1) Perforated abdominal viscus Priority: Primary Status: Acute (2) Leukocytosis Priority: Secondary Status: Resolved (3) Acute kidney injury Priority: Secondary Status: Resolved (4) Hyperglycemia Priority: Secondary Status: Resolved (5) Hypokalemia Priority: Secondary Status: Acute (6) Diarrhea Priority: Secondary Status: Acute (7) DVT prophylaxis Priority: Secondary Status: Acute - Respiratory Orders Smoking Cessation: Smoking cessation has been advised. For more information, call the [employer] Tobacco Quit Line at 1-514-RJMN-NOW. - Diet/Nutrition Diet/Nutrition Orders: Regular - Activity Activity Orders: Up ad valerie, Ambulate - Services Needed Following services are medically necessary services: Nursing - Transfer Medications Prescriptions: Diphenoxylate/Atropine [Lomotil 2.5 mg/0.025 mg] 2 tab PO QID PRN #40 tablet PRN Reason: Diarrhea OxyCODONE/APAP 5/325 [Percocet 5/325 MG] 1 each PO Q4H PRN #30 tablet PRN Reason: Pain Home Medications: Furosemide [Lasix] 40 mg PO BID 06/26/16 [History] Ibuprofen [Advil] 200 mg PO Q4-6H PRN 06/26/16 [History] Potassium Gluconate 75 mg PO DAILY 06/26/16 [History] Diphenoxylate/Atropine [Lomotil 2.5 mg/0.025 mg] 2 tab PO QID PRN #40 tablet [Rx] OxyCODONE/APAP 5/325 [Percocet 5/325 MG] 1 each PO Q4H PRN #30 tablet 10/25/16 [ Rx] Allergies/Adverse Reactions: Allergies codeine Allergy (Verified 07/20/16 07:19) Hives patient states reaction was in 1983 promethazine [From Phenergan] Adverse Reaction (Verified 10/17/16 03:52) Confusion Certification: Further, I certify that my clinical findings support that this patient is homebound (i.e. absences from home require considerable and taxing effort and are for medical reasons or jain services or infrequently or short duration when for other reasons) because: Attestation: My signature below is to certify that this patient is under my care and that I, or nurse practitioner, or a physician's assignment desk assistant working with me, has a face-to -face encounter with this patient. <BertieAlexandra Radha - Last Filed: 10/26/16 14:43> - Diagnosis (1) Perforated abdominal viscus Status: Acute (2) Hyperglycemia Status: Resolved (3) Hypokalemia Status: Acute (4) Diarrhea Status: Acute (5) Hypomagnesemia Status: Acute (6) DVT prophylaxis Status: Acute - Respiratory Orders Smoking Cessation: Smoking cessation has been advised. For more information, call the [employer] Tobacco Quit Line at 3-228-JNYKNOW. - Dressing/Wound Care Site: Midline Type of Dressing/Treatments w/Frequency: May shower, no tub bath Wound vac- medium black sponge (3 open areas bridged together); change every MWF ; 125mmHG continuous suction - Diet/Nutrition Diet/Nutrition Orders: Regular (Ensure of equivalent TID with meals) Certification: Further, I certify that my clinical findings support that this patient is homebound (i.e. absences from home require considerable and taxing effort and are for medical reasons or jain services or infrequently or short duration when for other reasons) because: Homebound Reason: Patient requires assistance of a person or device to safely leave home, Post-surgery restriction and or conditions limit ability to leave home, Leaving home requires considerable and taxing effort due to condition Attestation: My signature below is to certify that this patient is under my care and that I, or nurse practitioner, or a physician's assignment desk assistant working with me, has a face-to -face encounter with this patient.
--- NOTE | 2016-10-25 13:53 | General Surgery Progress Note ---
<GeriAlexandra Radha - Last Filed: 10/25/16 13:51> Date of Encounter: 10/25/16 Time of Encounter: 13:40 - Assessment and Plan (1) Perforated abdominal viscus Current Visit: Yes Status: Acute POD #14 Exploratory laparotomy, lysis of adhesions, ileocectomy, wound vac placement with Dr. Hopkins Tolerating regular diet Supportive care/Pain control Wound vac to Midline- change every MWF per surgery team Repeat am labs- bmp Incentive Spirometer every 1 hour while awake Increase activity as tolerated- Out of bed to chair and ambulate PT/OT daily Discharge planning- will need home health care for wound vac management- [facility] set up (2) Hyperglycemia Current Visit: Yes Status: Resolved Stable No insulin coverage required with discontinuation of TPN (3) Hypokalemia Current Visit: Yes Status: Acute Replace potassium Repeat labs in the am (4) Diarrhea Current Visit: Yes Status: Acute Improvement with Lomotil Continue Lomotil QID prn Qualifiers: Diarrhea type: unspecified type Qualified Code(s): R19.7 - Diarrhea, unspecified (5) Hypomagnesemia Current Visit: Yes Status: Acute Reiplace magnesium Repeat am labs (6) DVT prophylaxis Current Visit: Yes Status: Acute Heparin 5,000 units SQ twice daily for DVT prophylaxis EPCDs bilateral lower extremities for DVT prophylaxis Subjective Patient reports: still having pain (right sided pain last night- improving), pain is less, tolerating a regular diet, voiding w/o difficulty, flatus, bowel movement, diarrhea (improving with lomotil), afebrile Objective Vital Signs - Last 8 Hours Temp Pulse Resp BP Pulse Ox 10/25/16 11:13 98.3 F 70 18 131/75 97 10/25/16 10:39 98 10/25/16 07:06 98.4 F 76 18 124/71 98 Intake and Output 10/24/16 10/25/16 10/25/16 23:59 07:59 15:59 Intake Total 780 / 780 0 / 0 584 / 584 Output Total 200 / 200 200 / 200 251 / 251 Balance 580 / 580 -200 / -200 333 / 333 Intake: IV Fluids 104 / 104 Magnesium Sulfate 2 GM In 104 / 104 Dextrose 5% 100 ML @ 100 mls/hr IVPB ONCE ONE Rx# :[id number] Oral 780 / 780 0 / 0 480 / 480 Output: Urine 200 / 200 200 / 200 250 / 250 Urine/Stool Mix 1 / Wound Drainage 0 / 0 0 / 0 Abdomen 0 / 0 0 / 0 midline abdomen 0 / 0 Other: Meal Dinner Lunch Percent of Meal Consumed 85% 50% Stool Size Moderate Moderate Stool Consistency soft loose Stool Color Brown Brown # Voids 1 # Bowel Movements 1 1 - General physical appearance well developed, well nourished, no distress - Eyes normal ocular movement - ENT normal mucosa, atraumatic, normocephalic - Neck Neck exam: trachea midline - Respiratory normal respiratory effort, clear to auscultation - Cardiovascular Cardiovascular exam: Present: RRR - Abdomen Abdomen: Present: bowel sounds present, soft, tender (expected post-operative tenderness), wound (Midline with wound vac intact) - Incision Incision: Present: open (Wound vac intact with serous drainage noted; change every MWF) - Integumentary no rash - Neurologic CN 2-12 grossly intact - Psychiatric oriented to time, oriented to person, oriented to place, speech is normal, memory intact - Labs 10/25/16 07:08 10/25/16 07:08 Diabetes panel 10/25/16 Range/Units 07:08 Sodium 139 (136-145) mEq/L Potassium 3.1 L (3.5-4.5) mEq/L Chloride 109 (98-109) mEq/L Carbon Dioxide 19 (19-29) mEq/L BUN 7 (7-20) mg/dL Creatinine 0.91 (0.57-1.11) mg/dL Glucose 137 H (70-99) mg/dL Calcium 8.0 L (8.6-10.8) mg/dL Calcium panel 10/25/16 Range/Units 07:08 Calcium 8.0 L (8.6-10.8) mg/dL Pituitary panel 10/25/16 Range/Units 07:08 Sodium 139 (136-145) mEq/L Potassium 3.1 L (3.5-4.5) mEq/L Chloride 109 (98-109) mEq/L Carbon Dioxide 19 (19-29) mEq/L BUN 7 (7-20) mg/dL Creatinine 0.91 (0.57-1.11) mg/dL Glucose 137 H (70-99) mg/dL Calcium 8.0 L (8.6-10.8) mg/dL Adrenal panel 10/25/16 Range/Units 07:08 Sodium 139 (136-145) mEq/L Potassium 3.1 L (3.5-4.5) mEq/L Chloride 109 (98-109) mEq/L Carbon Dioxide 19 (19-29) mEq/L BUN 7 (7-20) mg/dL Creatinine 0.91 (0.57-1.11) mg/dL Glucose 137 H (70-99) mg/dL Calcium 8.0 L (8.6-10.8) mg/dL - VTE Documentation of Mechanical Device: Intermittent pneumatic compression device Consult Discharge Plan - Plan Referrals: Michael Negron MD [Partnered Physician] - Alda Arroyo MD [Primary Care Provider] - Prescriptions: Diphenoxylate/Atropine [Lomotil 2.5 mg/0.025 mg] 2 tab PO QID PRN #40 tablet PRN Reason: Diarrhea OxyCODONE/APAP 5/325 [Percocet 5/325 MG] 1 each PO Q4H PRN #30 tablet PRN Reason: Pain - Attending Attestation I examined this patient and my medical decision-making was reviewed with the EXCELLENCE MANAGER/PA/Advanced Practice Nurse/Resident Physician. I agree with the documented findings, disposition and treatment plan as described except to the extent set forth below. <Traci Hopkins - Last Filed: 10/26/16 12:53> - Assessment and Plan (1) Perforated abdominal viscus Current Visit: Yes Status: Acute (2) DVT prophylaxis Current Visit: Yes Status: Acute (3) Diarrhea Current Visit: Yes Status: Acute Qualifiers: Diarrhea type: unspecified type Qualified Code(s): R19.7 - Diarrhea, unspecified Subjective Patient reports: pain is less, tolerating a regular diet, voiding w/o difficulty , flatus, diarrhea (improving), afebrile Objective Vital Signs - Last 8 Hours Temp Pulse Resp BP Pulse Ox 10/26/16 11:00 97.8 F 71 16 127/69 97 10/26/16 08:00 99 F 75 16 157/77 97 Intake and Output 10/25/16 10/26/16 10/26/16 23:59 07:59 15:59 Intake Total 120 / 120 200 / 200 360 / 360 Output Total 0 / 0 0 / 0 0 / 0 Balance 120 / 120 200 / 200 360 / 360 Intake: Oral 120 / 120 200 / 200 360 / 360 Output: Urine 0 / 0 Wound Drainage 0 / 0 0 / 0 midline abdomen 0 / 0 0 / 0 Other: Meal Dinner Breakfast Percent of Meal Consumed 25% 50% Stool Size Small Small Stool Consistency loose loose Stool Color Brown Brown # Voids 2 1 # Bowel Movements 1 1 Weight 85.2 kg Patient Weight 10/26/16 23:59 Weight 85.2 kg - General physical appearance well developed, well nourished, no distress - Eyes PERRL, normal ocular movement - ENT atraumatic, normocephalic - Neck Neck exam: trachea midline - Respiratory normal expansion, clear to auscultation - Cardiovascular Cardiovascular exam: Present: RRR - Abdomen Abdomen: Present: bowel sounds present, soft, tender - Integumentary no rash - Neurologic CN 2-12 grossly intact - Musculoskeletal normal posture - Psychiatric oriented to time, memory intact - Labs 10/25/16 07:08 10/26/16 05:13 Diabetes panel 10/26/16 Range/Units 05:13 Sodium 139 (136-145) mEq/L Potassium 3.4 L (3.5-4.5) mEq/L Chloride 108 (98-109) mEq/L Carbon Dioxide 20 (19-29) mEq/L BUN 10 (7-20) mg/dL Creatinine 0.90 (0.57-1.11) mg/dL Glucose 101 H (70-99) mg/dL Calcium 8.0 L (8.6-10.8) mg/dL Calcium panel 10/26/16 Range/Units 05:13 Calcium 8.0 L (8.6-10.8) mg/dL Pituitary panel 10/26/16 Range/Units 05:13 Sodium 139 (136-145) mEq/L Potassium 3.4 L (3.5-4.5) mEq/L Chloride 108 (98-109) mEq/L Carbon Dioxide 20 (19-29) mEq/L BUN 10 (7-20) mg/dL Creatinine 0.90 (0.57-1.11) mg/dL Glucose 101 H (70-99) mg/dL Calcium 8.0 L (8.6-10.8) mg/dL Adrenal panel 10/26/16 Range/Units 05:13 Sodium 139 (136-145) mEq/L Potassium 3.4 L (3.5-4.5) mEq/L Chloride 108 (98-109) mEq/L Carbon Dioxide 20 (19-29) mEq/L BUN 10 (7-20) mg/dL Creatinine 0.90 (0.57-1.11) mg/dL Glucose 101 H (70-99) mg/dL Calcium 8.0 L (8.6-10.8) mg/dL
[2016-10-26] MEDS: *HR* OxyCODONE/APAP 5/325 TABLET PO PRN ×3 (04:13→14:32)
[2016-10-26 05:33] LABS: BUN/Creatinine Ratio 11 (6-26); Blood Urea Nitrogen 10 mg/dL (7-20); Carbon Dioxide 20 mEq/L (19-29); Chloride 108 mEq/L (98-109); Glucose 101 mg/dL (70-99); Magnesium 1.5 mg/dL (1.6-2.6); Osmolality,Calculated 287 (280-300); Potassium 3.4 mEq/L (3.5-4.5); Sodium 139 mEq/L (136-145); eGFR For African Americans > 60 (> 60); eGFR For Non-African Americans > 60 (> 60)
[2016-10-26] MEDS: *HR* Heparin 5,000 UNIT/ML VIAL SQ SCH (06:30)
[2016-10-26] MEDS: Erythromycin OPTH Oint RIGHT EYE SCH ×2 (08:37→14:40)
[2016-10-26] MEDS ORDERED: Magnesium Sulfate 2 GM in D5% in Water 100 ML IVPB ONE (09:51)
[2016-10-26 11:19] VITALS: BP 127/69
[2016-10-26] MEDS: Ipratropium/Albuterol Neb 3 ML IH SCH (11:56)
[2016-10-26] MEDS: Diphenoxylate/Atropine 1 TAB TABLET PO PRN (13:10)
[2016-10-26] MEDS ORDERED: *HR* Heparin 5,000 UNIT/ML VIAL SQ SCH (19:00)
== END 2016-10-26 17:55 | disposition home health service (06) | DRG 221 ==
LOC: SAMDAY 08:03 → 1NENUOBS 15:59 → 3ANU 10-11 15:40
PROVIDERS: ADMIT Obstetrics & Gynecology; ATTEND Obstetrics & Gynecology

== ENCOUNTER 2016-11-07 11:31 | Observation (INO) ==
--- NOTE | 2016-11-07 11:47 | Emergency Department Note ---
Disposition Clinical Impression: Nausea & vomiting Qualifiers: Vomiting type: unspecified Vomiting Intractability: intractable Qualified Code( s): R11.2 - Nausea with vomiting, unspecified Abdominal pain Qualifiers: Abdominal location: generalized Qualified Code(s): R10.84 - Generalized abdominal pain Disposition: Admitted As Inpatient Condition: Critical Time of Disposition: 18:28 Nausea/Vomiting/Diarrhea HPI - General Chief complaint: ED Nausea/Vomiting/Diarrhea Stated complaint: N/V/D Time Seen by Provider: 11/07/16 11:41 Source: patient, family Limitations: no limitations Nursing Notes Reviewed: Yes Vital Signs Reviewed: Yes - History of Present Illness HPI Narrative: Mrs. Robert, a 61yo female, presents from outpatient lab office with CC: N, V , & weakness. Onset yesterday. Associated with significantly decreased energy levels. Loose bowels and chills since surgery Sep. Follow-up this AM with Dr. Hopkins after which she had outpatient labs drawn. She did not feel right thus presents here. Has concerns for dehydration. 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 Sep re-op - infection, washout, colectomy, wound left to heal by secondary intention. By Dr. Hopkins. Sep bladder sling Allergies: phenergran, codeine. PSH: hysterectomy, clayton, appy. Admits: surgical history with complication, chills, nausea, vomiting, loose bowels, weakness Denies: fever, abdominal pain, melena, hematochezia, hemetemesis, changes in urination, abdominal distention, vertigo, changes in vision. No hx CAD, CHF, CKD. - Related Data Home Medications Medication Instructions Recorded Confirmed Ibuprofen [Advil] 200 mg PO Q4-6H PRN 06/26/16 11/07/16 Diphenoxylate/Atropine [Lomotil 1 tab PO QID PRN 11/07/16 11/07/16 2.5 mg/0.025 mg] Ondansetron HCl [Zofran] 4 mg PO Q6H PRN 11/07/16 11/07/16 OxyCODONE/APAP 5/325 [Percocet 1 each PO Q8H PRN 11/07/16 11/07/16 5/325 MG] Potassium Chloride [Klor-Con 10] 20 meq PO QAM 11/07/16 11/07/16 Allergies Allergy/AdvReac Type Severity Reaction Status Date / Time codeine Allergy Hives Verified 07/20/16 07:19 promethazine [From Phenergan] AdvReac Confusion Verified 10/17/16 03:52 All systems ED: reviewed and negative except as stated. (as per HPI) Past Medical History - Past Medical History Medical history: Reports: cancer Surgical history: Reports: cholecystectomy, MARYANN/BSO Psychiatric history: Reports: no psych history - Social History Smoking Status: Never smoker Smokeless Tobacco Status: No Alcohol use: Reports: occasionally Drug use: Reports: none Physical Exam General: Patient is alert, oriented, and in no acute distress. HEENT: No facial asymmetry. Head is normocephalic and atraumatic. Trachea midline. Cardiovascular: Heart regular rate and rhythm without clicks, rubs, gallops, or murmurs. No JVD. PMI nondisplaced. Respiratory: Symmetric chest rise with good respiratory effort. Bilateral breath sounds are clear without wheezing, crackles, or rhonchi. Abdomen: Obese. Bowel sounds present normoactive x-4 quadrants. Abdomen is soft , nondistended. Diffusely tender. Unable to assess organomegaly secondary to patient's abdominal tenderness. Psych: Patient's affect is appropriate for situation. - General Limitations: no limitations General appearance: alert, in no apparent distress Course Course Narrative: Patient is afebrile on presentation. Appears dehydrated and in pain; will bolus with IVF and provide antiemetic and analgesia. Outpatient labs have not resulted; will re-draw here for quick turn-around. Abdominal xray performed this morning as outpatient has not been read by radiology. As read by me: not suspicious for bowel obstruction. No free air. Patient responded well to Zofran ODT. IVF did help, however her IV went bad. PO intake encouraged. After 2hrs in ED, patient has not substantially improved. Will escalate to CT abd/pelvis with IV and oral contrast to maximize our view of the bowel. Will continue symptomatic treatment. Patient's nausea did well with compazine. After continuing to drink her PO contrast, she spontaneously started vomiting. Will dose IV Zofran 8mg and reassess. [address] Altamirano, director of provider relations surgery. He agreed with the plan for discharge home with antiemetic and close follow-up with Dr. Hopkins. Recommended clear fluids only for the time being. 17:35 Dr. Hopkins called to discuss the patient. She recommends empiric treatment with Flagyl. She is concerned as the patient has had diarrhea since the operation with current unrelenting nausea. Spoke with the patient and her daughters (3) and bedside. We had shared decision making regarding option of going home with antiemetic, empiric flagyl, and close follow-up vs coming in for continued management. They overwhelmingly preferred coming in. 18:[address] Hopkins who agrees to accept the patient. Vital Signs Temperature 98.2 F 11/07/16 11:34 Pulse Rate 77 11/07/16 11:34 Respiratory Rate 18 11/07/16 11:34 Blood Pressure 159/80 11/07/16 11:34 O2 Sat by Pulse Oximetry 98 11/07/16 11:34 Temperature 98.2 F 11/07/16 11:34 Pulse Rate 94 11/07/16 16:30 Respiratory Rate 16 11/07/16 15:42 Blood Pressure 116/58 11/07/16 16:30 O2 Sat by Pulse Oximetry 100 11/07/16 16:30 Oxygen Delivery Oxygen Delivery Room Air Nausea/Vomiting/Diarrhea - Lab Data Result diagrams: 11/07/16 12:48 11/07/16 12:48 Lab Results 11/07/16 11/07/16 11/07/16 Range/Units 11:41 12:48 12:48 WBC 6.5 (4.3-11.1) K/mcL RBC 3.41 L (3.82-4.97) M/mcL Hgb 10.8 L (11.5-15.4) g/dL Hct 32.0 L (35.3-44.9) % MCV 93.8 (83.0-100.0) fL MCH 31.7 (28.0-33.3) pg MCHC 33.8 (31.6-35.5) g/dL RDW 13.1 (11.5-14.5) % Plt Count 239 (140-400) K/mcL MPV 8.8 L (9.4-12.4) fL Immature Gran % 0.3 (0-4) % Seg Neutrophils % 54.4 % Lymphocytes % 34.8 % Monocytes % 7.2 % Eosinophils % 2.5 % Basophils % 0.8 % Neutrophils # 3.5 (1.6-8.9) K/mcL Lymphocytes # 2.3 (0.6-4.6) K/mcL Monocytes # 0.5 (0.0-1.3) K/mcL Eosinophils # 0.2 (0.0-0.6) K/mcL Basophils # 0.1 (0.0-0.2) K/mcL Sodium 140 (136-145) mEq/L Potassium 2.7 L (3.5-4.5) mEq/L Chloride 103 (98-109) mEq/L Carbon Dioxide 24 (19-29) mEq/L BUN 6 L (7-20) mg/dL Creatinine 0.67 (0.57-1.11) mg/dL Est GFR ( Amer) > 60 (> 60) Est GFR (Non-Af Amer) > 60 (> 60) BUN/Creatinine Ratio 9 (6-26) Glucose 97 (70-99) mg/dL Calculated Osmolality 288 (280-300) Calcium 9.0 (8.6-10.8) mg/dL Lipase 9 (8-78) Units/L Urine Color Yellow (Yellow) Urine Clarity Clear (Clear) Urine pH 7.0 (5.0-8.0) pH Units Ur Specific [place] 1.008 L (1.010-1.025) Urine Protein Negative (Neg-Trace) mg/dL Urine Glucose (UA) Normal (Normal) mg/dL Urine Ketones Negative (Negative) mg/dL Urine Blood Negative (Negative) Urine Nitrite Negative (Negative) Urine Bilirubin Negative (Negative) Urine Urobilinogen Normal (Normal) mg/dL Ur Leukocyte Esterase Negative (Negative) Ur Culture Indicated? NO (NO) C. difficile Tox (PCR) (Negative) 11/07/16 Range/Units 16:49 WBC (4.3-11.1) K/mcL RBC (3.82-4.97) M/mcL Hgb (11.5-15.4) g/dL Hct (35.3-44.9) % MCV (83.0-100.0) fL MCH (28.0-33.3) pg MCHC (31.6-35.5) g/dL RDW (11.5-14.5) % Plt Count (140-400) K/mcL MPV (9.4-12.4) fL Immature Gran % (0-4) % Seg Neutrophils % % Lymphocytes % % Monocytes % % Eosinophils % % Basophils % % Neutrophils # (1.6-8.9) K/mcL Lymphocytes # (0.6-4.6) K/mcL Monocytes # (0.0-1.3) K/mcL Eosinophils # (0.0-0.6) K/mcL Basophils # (0.0-0.2) K/mcL Sodium (136-145) mEq/L Potassium (3.5-4.5) mEq/L Chloride (98-109) mEq/L Carbon Dioxide (19-29) mEq/L BUN (7-20) mg/dL Creatinine (0.57-1.11) mg/dL Est GFR ( Amer) (> 60) Est GFR (Non-Af Amer) (> 60) BUN/Creatinine Ratio (6-26) Glucose (70-99) mg/dL Calculated Osmolality (280-300) Calcium (8.6-10.8) mg/dL Lipase (8-78) Units/L Urine Color (Yellow) Urine Clarity (Clear) Urine pH (5.0-8.0) pH Units Ur Specific [place] (1.010-1.025) Urine Protein (Neg-Trace) mg/dL Urine Glucose (UA) (Normal) mg/dL Urine Ketones (Negative) mg/dL Urine Blood (Negative) Urine Nitrite (Negative) Urine Bilirubin (Negative) Urine Urobilinogen (Normal) mg/dL Ur Leukocyte Esterase (Negative) Ur Culture Indicated? (NO) C. difficile Tox (PCR) Negative (Negative) Attestation Statement - Attestation Attestation: I examined this patient and my medical decision-making was reviewed with the Resident Physician. I agree with the documented findings, disposition and treatment plan as described except to the extent set forth below. ED work up negative. Dr. Gilliland spoke with Dr. Hopkins, who wants the patient admitted for further treatment.
[2016-11-07] MEDS ORDERED: Ondansetron ODT 4 MG TAB.RAPDIS SL ONE (11:54)
[2016-11-07] MEDS ORDERED: 0.9 % Sodium Chloride 1,000 ML IVC ONE (12:10)
[2016-11-07] MEDS ORDERED: *HR* HYDROmorphone (PF) 1 MG/ML SYRINGE IVP ONE (12:14)
[2016-11-07 12:59] LABS: Basophils # 0.1 K/mcL (0.0-0.2); Basophils % 0.8 %; Eosinophils # 0.2 K/mcL (0.0-0.6); Eosinophils % 2.5 %; Hemoglobin 10.8 g/dL (11.5-15.4); Immature Granulocytes % 0.3 % (0-4); Lymphocytes # 2.3 K/mcL (0.6-4.6); Lymphocytes % 34.8 %; Mean Corpuscular HGB Conc 33.8 g/dL (31.6-35.5); Mean Corpuscular Hemoglobin 31.7 pg (28.0-33.3); Mean Corpuscular Volume 93.8 fL (83.0-100.0); Mean Platelet Volume 8.8 fL (9.4-12.4); Monocytes # 0.5 K/mcL (0.0-1.3); Monocytes % 7.2 %; Neutrophils # 3.5 K/mcL (1.6-8.9); Platelet Count 239 K/mcL (140-400); Red Blood Count 3.41 M/mcL (3.82-4.97); Red Cell Distribution Width 13.1 % (11.5-14.5); Segmented Neutrophils % 54.4 %
[2016-11-07 13:14] LABS: BUN/Creatinine Ratio 9 (6-26); Blood Urea Nitrogen 6 mg/dL (7-20); Carbon Dioxide 24 mEq/L (19-29); Chloride 103 mEq/L (98-109); Glucose 97 mg/dL (70-99); Lipase 9 Units/L (8-78); Osmolality,Calculated 288 (280-300); Potassium 2.7 mEq/L (3.5-4.5); Sodium 140 mEq/L (136-145); eGFR For African Americans > 60 (> 60); eGFR For Non-African Americans > 60 (> 60)
[2016-11-07] MEDS ORDERED: Prochlorperazine 10 MG/2 ML VIAL IVP STA (14:31)
[2016-11-07 14:49] LABS: Bilirubin,Urine Negative (Negative); Blood,Urine Negative (Negative); Clarity,Urine Clear (Clear); Color,Urine Yellow (Yellow); Glucose,Urine (UA) Normal (Normal); Ketones,Urine Negative (Negative); Leukocyte Esterase,Urine Negative (Negative); Nitrite,Urine Negative (Negative); Protein,Urine Negative (Neg-Trace); Specific Gravity,Urine 1.008 (1.010-1.025); Urobilinogen,Urine Normal (Normal)
[2016-11-07] MEDS ORDERED: Ondansetron 4 MG/2 ML VIAL IVP STA (15:38)
[2016-11-07] MEDS ORDERED: MetroNIDAZOLE 500 MG/100 ML 500 MG/100 ML BAG IVPB STA (18:09)
[2016-11-07] MEDS ORDERED: 0.9 % Sodium Chloride 1,000 ML IVC STA (18:10)
[2016-11-07] MEDS ORDERED: Ondansetron 4 MG/2 ML VIAL IVP PRN ×2 (18:11→19:29)
[2016-11-07] MEDS ORDERED: *HR* Morphine 2 MG/ML SYRINGE IVP PRN (19:29)
[2016-11-07] MEDS ORDERED: *HR* Metoprolol 5 MG/5 ML VIAL IVP PRN (19:29)
[2016-11-07] MEDS ORDERED: Naloxone 0.4 MG/ML INJ IVP PRN (19:29)
[2016-11-07] MEDS: 0.9 % Sodium Chloride 1,000 ML IVC SCH (22:47)
[2016-11-08] MEDS: MetroNIDAZOLE 500 MG/100 ML 500 MG/100 ML BAG IVPB SCH ×4 (00:06→23:24)
[2016-11-08 04:45] LABS: Basophils # 0.1 K/mcL (0.0-0.2); Basophils % 0.9 %; Eosinophils # 0.2 K/mcL (0.0-0.6); Eosinophils % 2.2 %; Hematocrit 28.8 % (35.3-44.9); Immature Granulocytes % 0.1 % (0-4); Lymphocytes # 1.9 K/mcL (0.6-4.6); Lymphocytes % 27.7 %; Mean Corpuscular HGB Conc 33.3 g/dL (31.6-35.5); Mean Corpuscular Hemoglobin 32.3 pg (28.0-33.3); Monocytes # 0.6 K/mcL (0.0-1.3); Monocytes % 8.2 %; Neutrophils # 4.1 K/mcL (1.6-8.9); Platelet Count 205 K/mcL (140-400); Red Blood Count 2.97 M/mcL (3.82-4.97); Red Cell Distribution Width 13.2 % (11.5-14.5); Segmented Neutrophils % 60.9 %
[2016-11-08 04:54] LABS: Hemoglobin 9.6 g/dL (11.5-15.4)
[2016-11-08 04:57] LABS: BUN/Creatinine Ratio 6 (6-26); Carbon Dioxide 24 mEq/L (19-29); Chloride 106 mEq/L (98-109); Glucose 92 mg/dL (70-99); Osmolality,Calculated 285 (280-300); Potassium 2.9 mEq/L (3.5-4.5); Sodium 139 mEq/L (136-145); eGFR For African Americans > 60 (> 60); eGFR For Non-African Americans > 60 (> 60)
[2016-11-08 04:58] LABS: Blood Urea Nitrogen 4 mg/dL (7-20)
[2016-11-08] MEDS ORDERED: Potassium Chloride 40 MEQ, Lidocaine 1% 2 ML in D5% in Water 500 ML IVPB ONE (08:00)
[2016-11-08] MEDS: Pantoprazole 40 MG VIAL IVP SCH (08:04)
--- NOTE | 2016-11-08 08:30 | General Surg History&Physical ---
Date of Encounter: 11/07/16 Time of Encounter: 11:00 Assessment and Plan (1) Abdominal pain Current Visit: Yes Status: Acute continue prn pain medication The assessment and plan as outlined above was discussed with the patient and/or family members who expressed understanding and agreement. All questions were answered. Qualifiers: Qualified Code(s): R10.9 - Unspecified abdominal pain (2) Nausea & vomiting Current Visit: Yes Status: Acute prn antiemetics ivf hydration ok for clears if patient can tolerate The assessment and plan as outlined above was discussed with the patient and/or family members who expressed understanding and agreement. All questions were answered. Qualifiers: Vomiting type: unspecified Vomiting Intractability: non-intractable Qualified Code(s): R11.2 - Nausea with vomiting, unspecified (3) Diarrhea Current Visit: No Status: Acute Cdiff sent from ER will check O/P and stool culture patient may have colitis given apprearance of colon on CT with diffuse wall thickening, but wbc normal, no bands, no fevers, minimal abdominal tenderness once cdiff is negative and stool cultures will try questran for diarrhea. The assessment and plan as outlined above was discussed with the patient and/or family members who expressed understanding and agreement. All questions were answered. Qualifiers: Diarrhea type: unspecified type Qualified Code(s): R19.7 - Diarrhea, unspecified (4) Hypokalemia Current Visit: No Status: Acute replace electrolytes as needed recheck in am The assessment and plan as outlined above was discussed with the patient and/or family members who expressed understanding and agreement. All questions were answered. (5) Abnormal surgical wound Current Visit: Yes Status: Acute wounds are healing very well wash areas with soap and water daily, apply mesalt to open areas, cover with 4x4 gauze and tape, change daily. The assessment and plan as outlined above was discussed with the patient and/or family members who expressed understanding and agreement. All questions were answered. Qualifiers: Encounter type: initial encounter Qualified Code(s): T81.9XXA - Unspecified complication of procedure, initial encounter History of Present Illness Chief complaint: diarrhea, N/V HPI: Ms. Robert is a 61 year old female who recently underwent an exploratory laparotomy and ileocectomy and wound vac placement for small bowel injury during a gynecologic procedure. She presented to the office today for followup and had multiple complaints. She is still having significant diarrhea daily. She is even having episodes of fecal incontinence due to the urgency of the diarrhea. She has abdominal pain here and there but is only taking 1-2 percocets per day for this. Yesterday she began having nausea and vomiting, mulitple episodes. She denies any recent sick contacts. She is unable to keep solid food down but has been able to keep liquids down. She feels weak and is tired. No fevers. Patient presented to ER and CT scan abdomen and pelvis was done showing thickened colon, no inflammation. WBC was normal. Past Med Surg Social Fam HX - Past Medical History Source: patient, old records reviewed Medical history: cancer (ovarian) Psychiatric history: no psych history - Past Surgical History Surgical History: cholecystectomy, colectomy (ileocectomy), MARYANN/BSO - Social History Smoking Status: Former smoker Smokeless Tobacco Status: No Alcohol use: occasionally Drug use: none - Family History Father Hx Family Cardiac Disorders: Yes Hx Family Cancer: Yes Mother Hx Family Cardiac Disorders: Yes Medications and Allergies Ibuprofen [Advil] 200 mg PO Q4-6H PRN 06/26/16 [History] Diphenoxylate/Atropine [Lomotil 2.5 mg/0.025 mg] 1 tab PO QID PRN 11/07/16 [ History] Ondansetron HCl [Zofran] 4 mg PO Q6H PRN 11/07/16 [History] OxyCODONE/APAP 5/325 [Percocet 5/325 MG] 1 each PO Q8H PRN 11/07/16 [History] Potassium Chloride [Klor-Con 10] 20 meq PO QAM 11/07/16 [History] Allergies codeine Allergy (Verified 07/20/16 07:19) Hives patient states reaction was in 1983 promethazine [From Phenergan] Adverse Reaction (Verified 10/17/16 03:52) Confusion Review of Systems All systems PM: reviewed and no additional remarkable complaints except as stated All systems PM: A 10-system review of systems was performed and is negative for pertinent findings except as documented above in the HPI. General Surgery Exam Initial Vital Signs Temp Pulse Resp BP Pulse Ox 98.2 F 77 18 159/80 98 11/07/16 11:34 11/07/16 11:34 11/07/16 11:34 11/07/16 11:34 11/07/16 11:34 - General physical appearance well developed, moderate distress - Eyes PERRL, normal ocular movement - ENT normal mucosa, atraumatic, normocephalic - Neck trachea midline - Respiratory normal respiratory effort, clear to auscultation - Cardiovascular Cardiovascular exam: Present: RRR - Abdomen Abdomen general surgery: Present: bowel sounds present, soft, tender (minimal diffusely) - Incision Incision: Present: clean and dry, serous (little serous drainage, 100% granulation tissue, no surrounding erythema), open - Integumentary Integumentary general surgery: Present: warm and dry - Neurologic Present: CN 2-12 grossly intact - Musculoskeletal Present: other (generalized weakness) - Psychiatric Psychiatric general surgery: Present: A&Ox3, speech is normal Results - Labs 11/08/16 04:18 11/08/16 04:18 Abnormal lab results RBC 2.97 M/mcL (3.82-4.97) L 11/08/16 04:18 Hgb 9.6 g/dL (11.5-15.4) L 11/08/16 04:18 Hct 28.8 % (35.3-44.9) L 11/08/16 04:18 MPV 9.0 fL (9.4-12.4) L 11/08/16 04:18 Potassium 2.9 mEq/L (3.5-4.5) L 11/08/16 04:18 BUN 4 mg/dL (7-20) L 11/08/16 04:18 Calcium 8.0 mg/dL (8.6-10.8) L 11/08/16 04:18 Ur Specific [place] 1.008 (1.010-1.025) L 11/07/16 11:41 Diabetes panel 11/08/16 Range/Units 04:18 Sodium 139 (136-145) mEq/L Potassium 2.9 L (3.5-4.5) mEq/L Chloride 106 (98-109) mEq/L Carbon Dioxide 24 (19-29) mEq/L BUN 4 L (7-20) mg/dL Creatinine 0.66 (0.57-1.11) mg/dL Glucose 92 (70-99) mg/dL Calcium 8.0 L (8.6-10.8) mg/dL Calcium panel 11/08/16 Range/Units 04:18 Calcium 8.0 L (8.6-10.8) mg/dL Pituitary panel 11/08/16 Range/Units 04:18 Sodium 139 (136-145) mEq/L Potassium 2.9 L (3.5-4.5) mEq/L Chloride 106 (98-109) mEq/L Carbon Dioxide 24 (19-29) mEq/L BUN 4 L (7-20) mg/dL Creatinine 0.66 (0.57-1.11) mg/dL Glucose 92 (70-99) mg/dL Calcium 8.0 L (8.6-10.8) mg/dL Adrenal panel 11/08/16 Range/Units 04:18 Sodium 139 (136-145) mEq/L Potassium 2.9 L (3.5-4.5) mEq/L Chloride 106 (98-109) mEq/L Carbon Dioxide 24 (19-29) mEq/L BUN 4 L (7-20) mg/dL Creatinine 0.66 (0.57-1.11) mg/dL Glucose 92 (70-99) mg/dL Calcium 8.0 L (8.6-10.8) mg/dL All other labs normal. - Imaging CT scan - abdomen: report reviewed, image reviewed CT scan - pelvis: report reviewed, image reviewed
[2016-11-08] MEDS: Cholestyramine 4 GM POWD.PACK PO SCH ×2 (08:57→16:10)
--- NOTE | 2016-11-08 09:32 | General Surgery Progress Note ---
<Anthony Kaur - Last Filed: 11/08/16 13:10> Date of Encounter: 11/08/16 Time of Encounter: 09:15 - Assessment and Plan (1) Diarrhea Current Visit: No Status: Acute Cdiff negative. O/P and stool culture pending Patient may have colitis given appearance of colon on CT with diffuse wall thickening, but wbc normal, no bands, no fevers, minimal abdominal tenderness Ordered cholestyramine for continued diarrhea. Plan to continue flagyl until seen by GI. Placed consult and spoke to Dr. Browning for evaluation and further recommendations. Qualifiers: Diarrhea type: unspecified type Qualified Code(s): R19.7 - Diarrhea, unspecified (2) Nausea & vomiting Current Visit: Yes Status: Acute Improved Continue prn antiemetics Continue IV fluids Clear liquid diet. Qualifiers: Vomiting type: unspecified Vomiting Intractability: non-intractable Qualified Code(s): R11.2 - Nausea with vomiting, unspecified (3) Abdominal pain Current Visit: Yes Status: Acute Continue prn pain medication. (4) Hypokalemia Current Visit: No Status: Acute K+ 2.7>2.9 Receive 40meg Potassium yesterday and again today. replace electrolytes as needed recheck in am (5) Abnormal surgical wound Current Visit: Yes Status: Acute Healing very well. Daily wound care: wash areas with soap and water daily, apply mesalt to open areas, cover with 4x4 gauze and tape, change daily. Qualifiers: Encounter type: initial encounter Qualified Code(s): T81.9XXA - Unspecified complication of procedure, initial encounter (6) DVT prophylaxis Current Visit: No Status: Acute Ambulate TID Subjective Patient reports: still having pain, flatus, bowel movement, diarrhea, nausea, vomiting, other (chills, weakness) Objective Vital Signs - Last 8 Hours Temp Pulse Resp BP Pulse Ox 11/08/16 07:12 98.9 F 78 14 118/65 95 11/08/16 05:20 99.0 F 74 16 103/60 96 Intake and Output 11/07/16 11/08/16 11/08/16 23:59 07:59 15:59 Intake Total 1100 / 2100 300 / 300 Output Total 650 / 650 Balance 1100 / 2100 -350 / -350 Intake: IV Fluids 1100 / 1100 300 / 300 0.9 % Sodium Chloride 1, 1000 / 1000 000 ML @ 3750 mls/hr IVC .Q16M [facility] Rx#:[id number] Flagyl 500 MG/100 ML 500 100 / 100 mg In 100 ml @ 100 mls/hr IVPB Q8HR [facility] Rx#: [id number] Potassium Chloride 10 mEq 100 / 100 200 / 200 /100mL 10 meq In 100 ml @ 100 mls/hr IVPB Q1H [facility] Rx#:[id number] Oral 0 / 0 Output: Urine 650 / 650 Other: Stool Size Smear Small Stool Consistency liquid Stool Color Yellow Brown Lukasz Colored Yellow # Voids 2 1 # Bowel Movements 2 1 Weight 76.45 kg Patient Weight 11/08/16 23:59 Weight 76.45 kg - General physical appearance well developed, well nourished, no distress - Eyes normal ocular movement - ENT normal mucosa, atraumatic, normocephalic - Neck Neck exam: trachea midline - Respiratory normal respiratory effort, clear to auscultation - Cardiovascular Cardiovascular exam: Present: RRR - Abdomen Abdomen: Present: bowel sounds present, soft, tender (minimally) - Incision Incision: Present: clean and dry, open (and packed with mesalt.) - Integumentary no rash - Neurologic CN 2-12 grossly intact - Psychiatric oriented to time, oriented to person, oriented to place, speech is normal, memory intact - Labs 11/08/16 04:18 11/08/16 04:18 Diabetes panel 11/08/16 Range/Units 04:18 Sodium 139 (136-145) mEq/L Potassium 2.9 L (3.5-4.5) mEq/L Chloride 106 (98-109) mEq/L Carbon Dioxide 24 (19-29) mEq/L BUN 4 L (7-20) mg/dL Creatinine 0.66 (0.57-1.11) mg/dL Glucose 92 (70-99) mg/dL Calcium 8.0 L (8.6-10.8) mg/dL Calcium panel 11/08/16 Range/Units 04:18 Calcium 8.0 L (8.6-10.8) mg/dL Pituitary panel 11/08/16 Range/Units 04:18 Sodium 139 (136-145) mEq/L Potassium 2.9 L (3.5-4.5) mEq/L Chloride 106 (98-109) mEq/L Carbon Dioxide 24 (19-29) mEq/L BUN 4 L (7-20) mg/dL Creatinine 0.66 (0.57-1.11) mg/dL Glucose 92 (70-99) mg/dL Calcium 8.0 L (8.6-10.8) mg/dL Adrenal panel 11/08/16 Range/Units 04:18 Sodium 139 (136-145) mEq/L Potassium 2.9 L (3.5-4.5) mEq/L Chloride 106 (98-109) mEq/L Carbon Dioxide 24 (19-29) mEq/L BUN 4 L (7-20) mg/dL Creatinine 0.66 (0.57-1.11) mg/dL Glucose 92 (70-99) mg/dL Calcium 8.0 L (8.6-10.8) mg/dL Consult Discharge Plan - Plan Referrals: Alda Arroyo MD [Primary Care Provider] - <Traci Hopkins - Last Filed: 11/08/16 16:12> Date of Encounter: 11/08/16 Time of Encounter: 12:15 - Assessment and Plan (1) Abdominal pain Current Visit: Yes Status: Acute pt asked to have her prn pain medication changed from morphine to dilaudid Qualifiers: Abdominal location: generalized Qualified Code(s): R10.84 - Generalized abdominal pain (2) Nausea & vomiting Current Visit: Yes Status: Acute pt stated she wanted to try a little more than clears, will order fulls Qualifiers: Vomiting type: unspecified Vomiting Intractability: non-intractable Qualified Code(s): R11.2 - Nausea with vomiting, unspecified (3) Diarrhea Current Visit: No Status: Acute GI panel has resulted with no positive pathology GI consulted and discussed diarrhea and case with Dr Browning, will see pt Qualifiers: Diarrhea type: unspecified type Qualified Code(s): R19.7 - Diarrhea, unspecified (4) Hypokalemia Current Visit: No Status: Acute (5) Abnormal surgical wound Current Visit: Yes Status: Acute Qualifiers: Encounter type: initial encounter Qualified Code(s): T81.9XXA - Unspecified complication of procedure, initial encounter Subjective Narrative: she feels a little better today she is still having a little nausea but it is significantly better, no emesis she has tolerated a little clears she has had 8 liquid bm's so far today, she states she doesnt feel like she is passing a lot of stool with each bm no melena or hematochezia still feeling weak and tired Objective Vital Signs - Last 8 Hours Temp Pulse Resp BP Pulse Ox 11/08/16 12:13 98.3 F 79 16 147/84 96 Intake and Output 11/08/16 11/08/16 11/08/16 07:59 15:59 23:59 Intake Total 300 / 300 2822 / 2822 Output Total 650 / 650 200 / 200 Balance -350 / -350 2622 / 2622 Intake: IV Fluids 300 / 300 1622 / 1622 0.9 % Sodium Chloride 1, 1000 / 1000 000 ML @ 80 mls/hr IVC . [id number] [facility] Rx#: [id number] Flagyl 500 MG/100 ML 500 100 / 100 100 / 100 mg In 100 ml @ 100 mls/hr IVPB Q8HR [facility] Rx#: [id number] Potassium Chloride 10 mEq 200 / 200 /100mL 10 meq In 100 ml @ 100 mls/hr IVPB Q1H [facility] Rx#:[id number] KCl 40 MEQ Xylocaine 2 ML 522 / 522 In Dextrose 5% 500 ML @ 130.5 mls/hr IVPB ONCE ONE Rx#:[id number] Oral 0 / 0 1200 / 1200 Output: Urine 650 / 650 200 / 200 Other: Meal Lunch Stool Size Small Stool Consistency liquid Stool Color Brown Yellow # Voids 1 # Bowel Movements 1 Weight 76.45 kg Patient Weight 11/08/16 23:59 Weight 76.45 kg - General physical appearance well developed, no distress, no pain - Eyes PERRL, normal ocular movement - ENT normal mucosa, atraumatic, normocephalic - Neck Neck exam: trachea midline - Abdomen Abdomen: Present: bowel sounds present, soft, tender - Incision Incision: Present: clean and dry, open (no surrounding erythema) - Neurologic CN 2-12 grossly intact - Musculoskeletal normal posture - Psychiatric oriented to time, speech is normal, memory intact - Labs 11/08/16 04:18 11/08/16 04:18 Short CBC 11/08/16 Range/Units 04:18 WBC 6.7 (4.3-11.1) K/mcL Hgb 9.6 L (11.5-15.4) g/dL Hct 28.8 L (35.3-44.9) % Plt Count 205 (140-400) K/mcL Neutrophils # 4.1 (1.6-8.9) K/mcL BMP 11/08/16 Range/Units 04:18 Sodium 139 (136-145) mEq/L Potassium 2.9 L (3.5-4.5) mEq/L Chloride 106 (98-109) mEq/L Carbon Dioxide 24 (19-29) mEq/L BUN 4 L (7-20) mg/dL Creatinine 0.66 (0.57-1.11) mg/dL Glucose 92 (70-99) mg/dL Calcium 8.0 L (8.6-10.8) mg/dL Liver Function 11/08/16 Range/Units 13:17 Albumin 2.5 L (3.5-5.0) g/dL Vital Signs Temp Pulse Resp BP Pulse Ox 11/08/16 16:08 98.4 F 80 16 134/76 96 11/08/16 12:13 98.3 F 79 16 147/84 96 11/08/16 07:12 98.9 F 78 14 118/65 95 11/08/16 05:20 99.0 F 74 16 103/60 96 11/07/16 22:40 97.9 F 84 16 129/68 94 L 11/07/16 19:19 98.5 F 81 16 117/62 95 11/07/16 18:36 22 128/66 11/07/16 16:30 94 116/58 100 Intake and Output 11/08/16 11/08/16 11/08/16 07:59 15:59 23:59 Intake Total 300 / 300 2822 / 2822 Output Total 650 / 650 200 / 200 Balance -350 / -350 2622 / 2622 Intake: IV Fluids 300 / 300 1622 / 1622 0.9 % Sodium Chloride 1, 1000 / 1000 000 ML @ 80 mls/hr IVC . [id number] [facility] Rx#: [id number] Flagyl 500 MG/100 ML 500 100 / 100 100 / 100 mg In 100 ml @ 100 mls/hr IVPB Q8HR [facility] Rx#: [id number] Potassium Chloride 10 mEq 200 / 200 /100mL 10 meq In 100 ml @ 100 mls/hr IVPB Q1H [facility] Rx#:[id number] KCl 40 MEQ Xylocaine 2 ML 522 / 522 In Dextrose 5% 500 ML @ 130.5 mls/hr IVPB ONCE ONE Rx#:[id number] Oral 0 / 0 1200 / 1200 Output: Urine 650 / 650 200 / 200 Other: Meal Lunch Stool Size Small Stool Consistency liquid Stool Color Brown Yellow # Voids 1 1 # Bowel Movements 1 Weight 76.45 kg Patient Weight 11/08/16 23:59 Weight 76.45 kg - Attending Attestation I examined this patient and my medical decision-making was reviewed with the ADVISORY SERVICES ASSOCIATE/PA/Advanced Practice Nurse/Resident Physician. I agree with the documented findings, disposition and treatment plan as described except to the extent set forth below.
[2016-11-08 11:35] LABS: C.difficile Toxin A/B by PCR Not detected (Not detect); Campylobacter by PCR Not detected (Not detect); Plesiomonas shigelloides PCR Not detected (Not detect); Salmonella PCR Not detected (Not detect)
[2016-11-08 11:36] LABS: Adenovirus F 40/41 PCR Not detected (Not detect); Astrovirus PCR Not detected (Not detect); Cryptosporidium by PCR Not detected (Not detect); Cyclospora cayetanensis PCR Not detected (Not detect); E. coli O157 by PCR Not detected (Not detect); Entamoeba histolytica PCR Not detected (Not detect); Enteroaggregative E.coli(EAEC) Not detected (Not detect); Enteropathogenic E.coli(EPEC) Not detected (Not detect); Enterotoxigenic E.coli (ETEC) Not detected (Not detect); Giardia lamblia PCR Not detected (Not detect); Norovirus GI/GII PCR Not detected (Not detect); Rotavirus A PCR Not detected (Not detect); Sapovirus PCR Not detected (Not detect); Shig/EnteroinvasiveE coli EIEC Not detected (Not detect); Shigalike tox-prod E coli STEC Not detected (Not detect); Vibrio PCR Not detected (Not detect); Vibrio cholerae PCR Not detected (Not detect); Yersinia enterocolitica PCR Not detected (Not detect)
[2016-11-08] MEDS: 0.9 % Sodium Chloride 1,000 ML IVC SCH (12:53)
[2016-11-08] MEDS: *HR* HYDROmorphone (PF) 1 MG/ML SYRINGE IVP PRN ×2 (13:13→18:43)
--- NOTE | 2016-11-08 17:53 | Event Note ---
Date of Encounter: 11/08/16 Time of Encounter: 18:00 Patient personally seen. Full consult to follow. Patient with recent bowel surgery with ileocecectomy. Patient now having watery diarrhea. Stool studies including C. difficile negative. CT of the abdomen and pelvis unremarkable. Colon thickening nonspecific. started on cholestyramine and diarrhea has mostly resolved. A: bile acid-induced diarrhea after ileocecectomy, doing well on by mouth cholestyramine. P; continue cholestyramine adjsut dose as needed
[2016-11-08] MEDS: *HR* OxyCODONE/APAP 5/325 TABLET PO PRN (23:24)
[2016-11-09] MEDS: 0.9 % Sodium Chloride 1,000 ML IVC SCH (02:00)
[2016-11-09 05:00] LABS: BUN/Creatinine Ratio 3 (6-26); Calcium 8.1 mg/dL (8.6-10.8); Carbon Dioxide 24 mEq/L (19-29); Chloride 107 mEq/L (98-109); Glucose 113 mg/dL (70-99); Magnesium 0.9 mg/dL (1.6-2.6); Osmolality,Calculated 287 (280-300); Potassium 3.1 mEq/L (3.5-4.5); Sodium 140 mEq/L (136-145); eGFR For African Americans > 60 (> 60); eGFR For Non-African Americans > 60 (> 60)
[2016-11-09 05:02] LABS: Blood Urea Nitrogen 2 mg/dL (7-20)
[2016-11-09] MEDS ORDERED: Potassium Chloride 40 MEQ, Lidocaine 1% 2 ML in D5% in Water 500 ML IVPB ONE ×2 (08:47→15:16)
[2016-11-09] MEDS ORDERED: Magnesium Sulfate 2 GM in D5% in Water 100 ML IVPB ONE ×2 (08:47→15:16)
--- NOTE | 2016-11-09 08:51 | Gastroenterology Consult Note ---
<Trudy Saldivar - Last Filed: 11/09/16 11:50> Date of Encounter: 11/09/16 Time of Encounter: 11:05 - Assessment and plan (1) Nausea & vomiting Current Visit: Yes Status: Acute Assessment and plan: anti-emetics as needed. Qualifiers: Vomiting type: unspecified Vomiting Intractability: non-intractable Qualified Code(s): R11.2 - Nausea with vomiting, unspecified (2) Diarrhea Current Visit: No Status: Acute Assessment and plan: Diarrhea since bowel resection surgery with fecal incontinence. GI panel negative for infectious etiology. Started on cholestyramine with improvement in symptoms. Patient may use up to bid as needed for diarrhea. Contact office if symptoms do not improve/worsen in the upcoming weeks. Recommend screening colonosocpy when safe to do so. Qualifiers: Diarrhea type: unspecified type Qualified Code(s): R19.7 - Diarrhea, unspecified - Time Spent With Patient Total time spent is greater than 50% in coordination of care (as documented) at patient's floor/unit and/or counseling patient: less than 15 minutes GI History of Present Illness - Data of Consult Patient: new to practice Consult date: 11/09/16 Requesting Physician: Traci Hopkins MD - Consult Narrative Reason for consult: N/V/D History of present illness: Ms. Robert is a 61 year old female who recently underwent an exploratory laparotomy and ileocectomy and wound vac placement for small bowel injury during a gynecologic procedure. She presented to the surgical office today for followup and had multiple complaints. She is still having significant diarrhea daily. She is even having episodes of fecal incontinence due to the urgency of the diarrhea. She has abdominal pain here and there but is only taking 1-2 percocets per day for this. Yesterday she began having nausea and vomiting, mulitple episodes. She denies any recent sick contacts. She is unable to keep solid food down but has been able to keep liquids down. She feels weak and is tired. No fevers. Patient presented to ER and CT scan abdomen and pelvis was done showing thickened colon, no inflammation. WBC was normal.Patient was started on cholestyramine by mouth and doing better. She has never had screening Cscope. Colonoscopy: None noted EGD: None noted Past Med Surg Social Fam HX - Past Medical History Medical history: cancer (ovarian) Psychiatric history: no psych history - Past Surgical History Surgical History: cholecystectomy, colectomy (ileocectomy), MARYANN/BSO - Social History Smoking Status: Former smoker Smokeless Tobacco Status: No Alcohol use: occasionally Drug use: none - Family History Father Hx Family Cardiac Disorders: Yes Hx Family Cancer: Yes Mother Hx Family Cardiac Disorders: Yes - Gastrointestinal NSAID use: N/A Anticoagulation Use: N/A Number of BM Per Day: typically 1 Gastrointestinal: Present: diarrhea, nausea - Constitutional Constitutional: fatigue, fever(s) - EENT Eyes: as per HPI Ears: Present: as per HPI Nose, mouth and throat: Present: as per HPI - Cardiovascular Cardiovascular ROS: Present: as per HPI - Respiratory Respiratory IM: Present: dyspnea - Neurological ROS Neurological GI: Present: as per HPI - Hematologic/Lymphatic Hematologic/Lymphatic pediatric: Present: as per HPI - Musculoskeletal Musculoskeletal ROS GI: Present: as per HPI - Integumentary Integumentary GI: Present: as per HPI - Psychiatric ROS Psychiatric GI: Present: as per HPI - Endocrine Endocrine IM: Present: as per HPI - Constitutional Vitals: Temp Pulse Resp BP Pulse Ox 98.3 F 77 16 144/74 97 11/09/16 07:15 11/09/16 07:15 11/09/16 07:15 11/09/16 07:15 11/09/16 07:15 General appearance: Present: cooperative, A&O X 3, no acute distress, answers questions appropriately - Head Head exam: Present: atraumatic, normocephalic - Eye Eye exam: Present: normal appearance, sclera anicteric - ENT ENT exam: Present: mucous membranes moist - Neck Neck exam general surgery: Present: normal inspection, trachea midline - Respiratory Respiratory exam: Present: CTAB - Cardiovascular Cardiovascular exam: Present: RRR, +S1, +S2 - GI/Abdominal GI/Abdominal exam: Present: soft, tenderness, no peritoneal signs Additional comments: large bandaged area over mid abd, lower abd. No seepage noted. - Rectal Rectal exam: Present: deferred - Extremities Exam Extremities exam: Present: warm - Neurological Exam Neurological exam: Present: no focal deficits - Psychiatric Psychiatric exam: Present: normal affect, normal mood - Skin Skin exam: Present: dry, intact, normal color, warm Results - Labs CBC & Chem 7: 11/08/16 04:18 11/09/16 04:26 Labs: Last Result Calcium 8.1 mg/dL (8.6-10.8) L 11/09/16 04:26 C. difficile Tox (PCR) Negative (Negative) 11/07/16 16:49 Entire Visit Hgb 9.6 g/dL (11.5-15.4) L 11/08/16 04:18 Hct 28.8 % (35.3-44.9) L 11/08/16 04:18 Lipase 9 Units/L (8-78) 11/07/16 12:48 Consult Discharge Plan - Plan Additional Instructions: surgical wounds, care: Wash with soap and water daily, apply Mesalt ribbon over the open wounds, cover with 4 x 4 gauze and secured with Medipore tape. Change dressings daily. Okay to shower Okay to ride in the car and climb stairs No driving yet Referrals: Traci Hopkins MD [Partnered Physician] - 11/21/16 10:35 am Prescriptions: Cholestyramine 4 gm PO BIDAC PRN #60 [email or web address] PRN Reason: Diarrhea <Gul,Emile - Last Filed: 11/12/16 14:37> Date of Encounter: 11/09/16 - Time Spent With Patient Total time spent is greater than 50% in coordination of care (as documented) at patient's floor/unit and/or counseling patient: GI History of Present Illness - Data of Consult Requesting Physician: Traci Hopkins MD - Consult Narrative History of present illness: Ms. Robert is a 61 year old female - Constitutional Vitals: Temp Pulse Resp BP Pulse Ox 98.1 F 74 16 132/73 96 11/10/16 10:56 11/10/16 10:56 11/10/16 10:56 11/10/16 10:56 11/10/16 10:56 Results - Labs CBC & Chem 7: 11/08/16 04:18 11/12/16 04:53 Labs: Last Result Calcium 8.2 mg/dL (8.6-10.8) L 11/10/16 05:26 C. difficile Tox (PCR) Negative (Negative) 11/07/16 16:49 Entire Visit Hgb 9.6 g/dL (11.5-15.4) L 11/08/16 04:18 Hct 28.8 % (35.3-44.9) L 11/08/16 04:18 Lipase 9 Units/L (8-78) 11/07/16 12:48 - Attending Attestation I examined this patient and my medical decision-making was reviewed with the MOLDING MACHINE TENDER/PA/Advanced Practice Nurse/Resident Physician. I agree with the documented findings, disposition and treatment plan as described except to the extent set forth below.
[2016-11-09] MEDS ORDERED: Cholestyramine 4 GM POWD.PACK PO PRN (09:21)
[2016-11-09] MEDS: Pantoprazole 40 MG VIAL IVP SCH (09:25)
[2016-11-09] MEDS: Cholestyramine 4 GM POWD.PACK PO SCH (09:25)
[2016-11-09] MEDS: MetroNIDAZOLE 500 MG/100 ML 500 MG/100 ML BAG IVPB SCH ×2 (09:25→15:52)
--- NOTE | 2016-11-09 10:42 | General Surgery Progress Note ---
Date of Encounter: 11/09/16 Time of Encounter: 08:30 - Assessment and Plan (1) Abdominal pain Current Visit: Yes Status: Acute improved, prn pain control Qualifiers: Abdominal location: generalized Qualified Code(s): R10.84 - Generalized abdominal pain (2) Nausea & vomiting Current Visit: Yes Status: Acute improved continue prn zofran Qualifiers: Vomiting type: unspecified Vomiting Intractability: non-intractable Qualified Code(s): R11.2 - Nausea with vomiting, unspecified (3) Diarrhea Current Visit: No Status: Acute appreciate gi input will continue cholestyramine discussed with patient that it can make her constipated will do 1-2 packs po daily prn diarrhea Qualifiers: Diarrhea type: unspecified type Qualified Code(s): R19.7 - Diarrhea, unspecified (4) Hypokalemia Current Visit: No Status: Acute replaced, recheck this afternoon (5) Abnormal surgical wound Current Visit: Yes Status: Acute continue daily dressing changes Qualifiers: Encounter type: initial encounter Qualified Code(s): T81.9XXA - Unspecified complication of procedure, initial encounter (6) Severe protein-calorie malnutrition Current Visit: Yes Status: Acute advance diet to soft, continue supplements TID (7) Hypomagnesemia Current Visit: No Status: Acute replaced, recheck this afternoon Subjective Narrative: feels better still tired and fatigued nausea is improved no emesis overnight tolerated fulls last evening and for breakfast, would like to advance diet and see how she does no bm overnight since starting the cholestyramine Objective Vital Signs - Last 8 Hours Temp Pulse Resp BP Pulse Ox 11/09/16 07:15 98.3 F 77 16 144/74 97 11/09/16 03:36 98.3 F 69 14 147/78 97 Intake and Output 11/08/16 11/09/16 11/09/16 23:59 07:59 15:59 Intake Total 546 / 546 987 / 987 720 / 720 Output Total 600 / 600 1150 / 1150 400 / 400 Balance -54 / -54 -163 / -163 320 / 320 Intake: IV Fluids 546 / 546 987 / 987 240 / 240 0.9 % Sodium Chloride 1, 446 / 446 887 / 887 240 / 240 000 ML @ 80 mls/hr IVC . [id number] [facility] Rx#: [id number] Flagyl 500 MG/100 ML 500 100 / 100 100 / 100 mg In 100 ml @ 100 mls/hr IVPB Q8HR [facility] Rx#: [id number] Oral 0 / 0 480 / 480 Output: Urine 600 / 600 1150 / 1150 400 / 400 Other: Meal Hot Tea Percent of Meal Consumed 100% Stool Size Moderate Stool Consistency soft formed Stool Color Brown # Voids 1 Weight 76.45 kg Patient Weight 11/09/16 23:59 Weight 76.45 kg - General physical appearance well developed, well nourished, no distress - Eyes PERRL, normal ocular movement - ENT normal mucosa, normocephalic - Neck Neck exam: trachea midline - Respiratory normal expansion, clear to auscultation - Cardiovascular Cardiovascular exam: Present: RRR - Abdomen Abdomen: Present: bowel sounds present, soft, non tender - Incision Incision: Present: clean and dry, open (mesalt ribbon and guaze/tape) - Integumentary no rash, no growths - Neurologic CN 2-12 grossly intact - Musculoskeletal normal posture - Psychiatric oriented to time, oriented to person, oriented to place, memory intact - Labs 11/08/16 04:18 11/09/16 04:26 BMP 11/09/16 Range/Units 04:26 Sodium 140 (136-145) mEq/L Potassium 3.1 L (3.5-4.5) mEq/L Chloride 107 (98-109) mEq/L Carbon Dioxide 24 (19-29) mEq/L BUN 2 L (7-20) mg/dL Creatinine 0.63 (0.57-1.11) mg/dL Glucose 113 H (70-99) mg/dL Calcium 8.1 L (8.6-10.8) mg/dL Liver Function 11/08/16 Range/Units 13:17 Albumin 2.5 L (3.5-5.0) g/dL Vital Signs Temp Pulse Resp BP Pulse Ox 11/09/16 07:15 98.3 F 77 16 144/74 97 11/09/16 03:36 98.3 F 69 14 147/78 97 11/08/16 23:13 98.8 F 76 14 141/74 96 11/08/16 16:08 98.4 F 80 16 134/76 96 11/08/16 12:13 98.3 F 79 16 147/84 96 Intake and Output 11/08/16 11/09/16 11/09/16 23:59 07:59 15:59 Intake Total 546 / 546 987 / 987 720 / 720 Output Total 600 / 600 1150 / 1150 400 / 400 Balance -54 / -54 -163 / -163 320 / 320 Intake: IV Fluids 546 / 546 987 / 987 240 / 240 0.9 % Sodium Chloride 1, 446 / 446 887 / 887 240 / 240 000 ML @ 80 mls/hr IVC . [id number] [facility] Rx#: [id number] Flagyl 500 MG/100 ML 500 100 / 100 100 / 100 mg In 100 ml @ 100 mls/hr IVPB Q8HR [facility] Rx#: [id number] Oral 0 / 0 480 / 480 Output: Urine 600 / 600 1150 / 1150 400 / 400 Other: Meal Hot Tea Percent of Meal Consumed 100% Stool Size Moderate Stool Consistency soft formed Stool Color Brown # Voids 1 Weight 76.45 kg Patient Weight 11/09/16 23:59 Weight 76.45 kg Consult Discharge Plan - Plan Referrals: Alda Arroyo MD [Primary Care Provider] -
--- NOTE | 2016-11-09 10:48 | Discharge Summary ---
<Alexandra Nevarez Radha - Last Filed: 11/12/16 13:52> Date of Encounter: 11/12/16 Time of Encounter: 13:52 - Discharge Diagnosis (1) Nausea & vomiting Status: Resolved Qualifiers: Vomiting type: unspecified Vomiting Intractability: non-intractable Qualified Code(s): R11.2 - Nausea with vomiting, unspecified (2) Diarrhea Status: Resolved Qualifiers: Diarrhea type: unspecified type Qualified Code(s): R19.7 - Diarrhea, unspecified (3) Abdominal pain Status: Resolved Qualifiers: Abdominal location: generalized Qualified Code(s): R10.84 - Generalized abdominal pain (4) Hypokalemia Status: Acute (5) Hypomagnesemia Status: Acute - Discharge Medications Prescriptions: Cholestyramine 4 gm PO BIDAC PRN #60 powd.pack PRN Reason: Diarrhea Home Medications: Ibuprofen [Advil] 200 mg PO Q4-6H PRN 06/26/16 [History] OxyCODONE/APAP 5/325 [Percocet 5/325 MG] 1 each PO Q8H PRN 11/07/16 [History] Potassium Chloride [Klor-Con 10] 20 meq PO QAM 11/07/16 [History] Cholestyramine 4 gm PO BIDAC PRN #60 powd.pack 11/09/16 [Rx] Ondansetron HCl [Zofran] 8 mg PO Q6H PRN #30 11/09/16 [Rx] Allergies/Adverse Reactions: Allergies codeine Allergy (Verified 07/20/16 07:19) Hives patient states reaction was in 1983 promethazine [From Phenergan] Adverse Reaction (Verified 10/17/16 03:52) Confusion General Surgery Exam Initial Vital Signs Temp Pulse Resp BP Pulse Ox 98.2 F 77 18 159/80 98 11/07/16 11:34 11/07/16 11:34 11/07/16 11:34 11/07/16 11:34 11/07/16 11:34 - General physical appearance well developed, well nourished, no distress - Eyes normal ocular movement - ENT normal mucosa, atraumatic, normocephalic - Neck trachea midline - Respiratory normal respiratory effort, clear to auscultation - Cardiovascular Cardiovascular exam: Present: RRR - Abdomen Abdomen general surgery: Present: bowel sounds present, soft, non tender - Incision Incision: Present: clean and dry, open - Integumentary Integumentary general surgery: Present: warm and dry - Neurologic Present: CN 2-12 grossly intact - Musculoskeletal Present: normal gait, normal posture - Psychiatric Psychiatric general surgery: Present: appropriate, oriented to person, oriented to place, oriented to time, speech is normal, memory intact Date of admission: 11/07/16 18:15 Primary care physician: Alda Shafer Consults: 11/08/16 11:47 Consult to Cook Room Supervisor [CONS] Routine Reason for SW Consult: DPOA, advanced directives 11/08/16 12:53 Consult to Gastroenterology [CONS] Routine Consulting Provider: Gastroenterology Neelam Reason for Consult: N/V/D, continued diarrhea since previous admission, Dr. Hopkins spoke to Dr. Browning. Time Notified: 12:55 Call Completed: Yes 11/09/16 10:53 Consult to Cook Room Supervisor [CONS] Routine Reason for SW Consult: plan pt dc likely tomorrow, will need daily home care for dressing changes, has home care already Anticipated date of discharge: 11/12/16 - Patient Status Disposition: Home Health Service Condition: Good - Discharge Instructions Follow Up With: Traci Hopkins MD [Partnered Physician] - 11/21/16 10:35 am Additional Instructions: surgical wounds, care: Wash with soap and water daily, apply Mesalt ribbon over the open wounds, cover with 4 x 4 gauze and secured with Medipore tape. Change dressings daily. Okay to shower Okay to ride in the car and climb stairs No driving yet - Time Spent with Patient Total time spent providing and/or coordinating discharge services: Labs on day of discharge: Labs from last 24 hours 11/09/16 11/09/16 14:55 04:26 Sodium 140 Potassium 3.2 L 3.1 L Chloride 107 Carbon Dioxide 24 BUN 2 L Creatinine 0.63 Est GFR ( Amer) > 60 Est GFR (Non-Af Amer) > 60 BUN/Creatinine Ratio 3 L Glucose 113 H Calculated Osmolality 287 Calcium 8.1 L Magnesium 1.2 L 0.9 L - Attending Attestation I examined this patient and my medical decision-making was reviewed with the OPTOMETRIC TECHNICIAN/PA/Advanced Practice Nurse/Resident Physician. I agree with the documented findings, disposition and treatment plan as described except to the extent set forth below. <Traci Hopkins - Last Filed: 11/12/16 15:36> Date of Encounter: 11/12/16 Time of Encounter: 10:45 - Discharge Diagnosis (1) Abdominal pain Priority: Secondary Status: Resolved Qualifiers: Abdominal location: generalized Qualified Code(s): R10.84 - Generalized abdominal pain (2) Nausea & vomiting Priority: Primary Status: Resolved Qualifiers: Vomiting type: unspecified Vomiting Intractability: non-intractable Qualified Code(s): R11.2 - Nausea with vomiting, unspecified (3) Diarrhea Priority: Primary Status: Resolved Qualifiers: Diarrhea type: unspecified type Qualified Code(s): R19.7 - Diarrhea, unspecified (4) Hypokalemia Priority: Secondary Status: Acute (5) Abnormal surgical wound Priority: Secondary Status: Acute Qualifiers: Encounter type: initial encounter Qualified Code(s): T81.9XXA - Unspecified complication of procedure, initial encounter (6) Severe protein-calorie malnutrition Priority: Secondary Status: Acute (7) Hypomagnesemia Priority: Secondary Status: Acute General Surgery Exam Initial Vital Signs Temp Pulse Resp BP Pulse Ox 98.2 F 77 18 159/80 98 11/07/16 11:34 11/07/16 11:34 11/07/16 11:34 11/07/16 11:34 11/07/16 11:34 - General physical appearance well nourished, no distress, no pain - Eyes PERRL, normal ocular movement - ENT normal mucosa - Respiratory normal expansion, normal respiratory effort - Cardiovascular Cardiovascular exam: Present: RRR - Abdomen Abdomen general surgery: Present: bowel sounds present, soft, non tender - Incision Incision: Present: clean and dry, open (dressings daily) - Integumentary Integumentary general surgery: Present: warm and dry - Neurologic Present: CN 2-12 grossly intact - Musculoskeletal Present: normal gait, normal posture - Psychiatric Psychiatric general surgery: Present: A&Ox3, speech is normal Date of admission: 11/07/16 18:15 Primary care physician: Alda Shafer Consults: 11/08/16 11:47 Consult to Cook Room Supervisor [CONS] Routine Reason for SW Consult: DPOA, advanced directives 11/08/16 12:53 Consult to Gastroenterology [CONS] Routine Consulting Provider: Gastroenterology Neelam Reason for Consult: N/V/D, continued diarrhea since previous admission, Dr. Hopkins spoke to Dr. Browning. Time Notified: 12:55 Call Completed: Yes Discharging clinician: Traci Hopkins Anticipated date of discharge: 11/10/16 - Patient Status Functional capacity at discharge: independent ambulation Overall status at discharge: patient is progressing back to baseline - Diet and Activity Activity: increase activity as tolerated Diet: advance to your usual diet - Hospital Course Hospital course: Ms. Robert is a 61 year old female who was admitted to the hospital for nausea vomiting and diarrhea. She was started on IV fluids and her electrolytes are placed. Zofran helped control her nausea. She was started on cholestyramine which has helped control her diarrhea. She was started on a clear liquid diet and advance to soft diet as she tolerated. GI was consulted for any further input. She was discharged home in stable condition with prescriptions for cholestyramine 4 g by mouth twice a day when necessary diarrhea. Zofran, which she has been taking at home. She no longer needs her wound VAC and we will do daily dressing changes to her surgical wounds. She will wash the areas with soap and water daily, apply Mesalt ribbon of the open wounds, cover with gauze and secured with tape. - Time Spent with Patient Total time spent providing and/or coordinating discharge services: Labs on day of discharge: Labs from last 24 hours 11/09/16 11/08/16 11/08/16 04:26 13:17 13:17 Sodium 140 Potassium 3.1 L Chloride 107 Carbon Dioxide 24 BUN 2 L Creatinine 0.63 Est GFR ( Amer) > 60 Est GFR (Non-Af Amer) > 60 BUN/Creatinine Ratio 3 L Glucose 113 H Calculated Osmolality 287 Calcium 8.1 L Magnesium 0.9 L Albumin 2.5 L Prealbumin 17.0 Stl C. cayetanensis PCR Stool Rotavirus A PCR Stl Adenov F 40/41 PCR Stool Astrovirus (PCR) Stool Campylobacter PCR Stl C. diff Tox A/B PCR Stool Cryptosporidium PCR Stl Sh Tox Pr E STEC PCR Stool E coli O157 PCR Stl Enterotoxigenic E PCR Stool EPEC (PCR) Stool EAEC (PCR) Stl E. histolytica PCR Stool Giardia Lamblia PCR Stool Salmonella PCR Stool Sapovirus (PCR) Stl P. shigelloides PCR Stl Shigella/EIEC PCR St Y.enterocolitica PCR Stool Vibrio (PCR) Stl Vibrio cholerae PCR Stl Norovirus GI/GII PCR Stl GI Panel (PCR) Com 11/08/16 10:00 Sodium Potassium Chloride Carbon Dioxide BUN Creatinine Est GFR ( Amer) Est GFR (Non-Af Amer) BUN/Creatinine Ratio Glucose Calculated Osmolality Calcium Magnesium Albumin Prealbumin Stl C. cayetanensis PCR Not detected Stool Rotavirus A PCR Not detected Stl Adenov F 40/41 PCR Not detected Stool Astrovirus (PCR) Not detected Stool Campylobacter PCR Not detected Stl C. diff Tox A/B PCR Not detected Stool Cryptosporidium PCR Not detected Stl Sh Tox Pr E STEC PCR Not detected Stool E coli O157 PCR Not detected Stl Enterotoxigenic E PCR Not detected Stool EPEC (PCR) Not detected Stool EAEC (PCR) Not detected Stl E. histolytica PCR Not detected Stool Giardia Lamblia PCR Not detected Stool Salmonella PCR Not detected Stool Sapovirus (PCR) Not detected Stl P. shigelloides PCR Not detected Stl Shigella/EIEC PCR Not detected St Y.enterocolitica PCR Not detected Stool Vibrio (PCR) Not detected Stl Vibrio cholerae PCR Not detected Stl Norovirus GI/GII PCR Not detected Stl GI Panel (PCR) Com See below
[2016-11-09] MEDS: *HR* OxyCODONE/APAP 5/325 TABLET PO PRN (14:39)
[2016-11-09 15:11] LABS: Magnesium 1.2 mg/dL (1.6-2.6); Potassium 3.2 mEq/L (3.5-4.5)
[2016-11-09] MEDS: Ondansetron 4 MG/2 ML VIAL IVP PRN ×2 (15:51→20:01)
--- NOTE | 2016-11-09 16:14 | Physician Discharge Referral ---
Home Health/Hosp Referral Info Transfer to: Home Health Attending Provider: Dr. Traci Hopkins Provider in Charge Post Discharge: Other (Dr. Traci Hopkins/PCP) - Diagnosis (1) Nausea & vomiting Priority: Primary Status: Resolved (2) Diarrhea Priority: Primary Status: Resolved (3) Abdominal pain Priority: Secondary Status: Resolved (4) Hypokalemia Priority: Secondary Status: Acute (5) Hypomagnesemia Priority: Secondary Status: Acute - Respiratory Orders None - Dressing/Wound Care Site: Abdomen Type of Dressing/Treatments w/Frequency: Discontinue wound vac surgical wounds, care: Wash with soap and water daily, apply Mesalt ribbon over the open wounds, cover with 4 x 4 gauze and ABD pad and secured with Medipore tape. Change dressings daily. Okay to shower - Diet/Nutrition Diet/Nutrition Orders: Regular - Activity Activity Orders: Up ad valerie - Services Needed Following services are medically necessary services: Senior Living Care Orders: surgical wounds, care: Wash with soap and water daily, apply Mesalt ribbon over the open wounds, cover with 4 x 4 gauze and ABD pad and secured with Medipore tape. Change dressings daily. Okay to shower Okay to ride in the car and climb stairs No driving yet - Transfer Medications Prescriptions: Cholestyramine 4 gm PO BIDAC PRN #60 powd.pack PRN Reason: Diarrhea Home Medications: Ibuprofen [Advil] 200 mg PO Q4-6H PRN 06/26/16 [History] OxyCODONE/APAP 5/325 [Percocet 5/325 MG] 1 each PO Q8H PRN 11/07/16 [History] Potassium Chloride [Klor-Con 10] 20 meq PO QAM 11/07/16 [History] Cholestyramine 4 gm PO BIDAC PRN #60 powd.pack 11/09/16 [Rx] Ondansetron HCl [Zofran] 8 mg PO Q6H PRN #30 11/09/16 [Rx] Allergies/Adverse Reactions: Allergies codeine Allergy (Verified 07/20/16 07:19) Hives patient states reaction was in 1983 promethazine [From Phenergan] Adverse Reaction (Verified 10/17/16 03:52) Confusion Certification: Further, I certify that my clinical findings support that this patient is homebound (i.e. absences from home require considerable and taxing effort and are for medical reasons or [employer] or infrequently or short duration when for other reasons) because: Homebound Reason: Patient requires assistance of a person or device to safely leave home, Leaving home requires considerable and taxing effort due to condition Attestation: My signature below is to certify that this patient is under my care and that I, or nurse practitioner, or a physician's grants and contracts assistant working with me, has a face-to -face encounter with this patient.
[2016-11-10] MEDS: MetroNIDAZOLE 500 MG/100 ML 500 MG/100 ML BAG IVPB SCH ×2 (00:19→09:19)
[2016-11-10] MEDS: Ondansetron 4 MG/2 ML VIAL IVP PRN ×3 (00:19→18:53)
[2016-11-10] MEDS: *HR* OxyCODONE/APAP 5/325 TABLET PO PRN ×3 (00:19→20:33)
[2016-11-10] MEDS: 0.9 % Sodium Chloride 1,000 ML IVC SCH (03:56)
[2016-11-10 06:05] LABS: BUN/Creatinine Ratio 3 (6-26); Calcium 8.2 mg/dL (8.6-10.8); Carbon Dioxide 25 mEq/L (19-29); Chloride 107 mEq/L (98-109); Glucose 93 mg/dL (70-99); Magnesium 1.4 mg/dL (1.6-2.6); Osmolality,Calculated 284 (280-300); Potassium 3.4 mEq/L (3.5-4.5); Sodium 139 mEq/L (136-145); eGFR For African Americans > 60 (> 60); eGFR For Non-African Americans > 60 (> 60)
[2016-11-10 06:10] LABS: Blood Urea Nitrogen 2 mg/dL (7-20)
[2016-11-10] MEDS: Acetaminophen 325 MG TABLET PO PRN (06:46)
[2016-11-10] MEDS: Pantoprazole 40 MG VIAL IVP SCH (09:19)
--- NOTE | 2016-11-10 13:21 | General Surgery Progress Note ---
Date of Encounter: 11/10/16 Time of Encounter: 09:05 - Assessment and Plan (1) Diarrhea Current Visit: No Status: Resolved Stool culture negative. Patient may have colitis given appearance of colon on CT with diffuse wall thickening, but wbc normal, no bands, no fevers, minimal abdominal tenderness Increased cholestyramine to QIAC Continued flagyl 500mg Q8H. Appreciate GI's input-recommending outpatient screening colonoscopy. Qualifiers: Diarrhea type: unspecified type Qualified Code(s): R19.7 - Diarrhea, unspecified (2) Nausea & vomiting Current Visit: Yes Status: Resolved Continued nausea. Continue prn antiemetics Continue soft diet. Qualifiers: Vomiting type: unspecified Vomiting Intractability: non-intractable Qualified Code(s): R11.2 - Nausea with vomiting, unspecified (3) Abdominal pain Current Visit: Yes Status: Resolved Continue prn pain medication. Qualifiers: Abdominal location: generalized Qualified Code(s): R10.84 - Generalized abdominal pain (4) Hypokalemia Current Visit: No Status: Acute K+ 2.7>2.9>3.2>3.4 replace electrolytes as needed recheck in am (5) Abnormal surgical wound Current Visit: Yes Status: Acute Healing very well. Daily wound care: wash areas with soap and water daily, apply mesalt to open areas, cover with 4x4 gauze and tape, change daily. Qualifiers: Encounter type: initial encounter Qualified Code(s): T81.9XXA - Unspecified complication of procedure, initial encounter (6) Hypomagnesemia Current Visit: No Status: Acute Improved, Mg 0.9>1.2>1.4 Mg replaced yesterday. Continue to monitor labs. (7) DVT prophylaxis Current Visit: No Status: Acute Ambulate TID Subjective Narrative: Patient states she feels worse overall with 3 BM from 6:30am to 9:30am. Continued nausea and headache. Diffuse abdominal pain, worse in LUQ. Afebrile. Objective Vital Signs - Last 8 Hours Temp Pulse Resp BP Pulse Ox 11/10/16 10:56 98.1 F 74 16 132/73 96 11/10/16 06:56 98 F 74 16 144/75 97 Intake and Output 11/09/16 11/10/16 11/10/16 23:59 07:59 15:59 Intake Total 622 / 622 1357 / 1357 100 / 100 Output Total 400 / 400 1300 / 1300 100 / 100 Balance 222 / 222 57 / 57 0 / 0 Intake: IV Fluids 622 / 622 1357 / 1357 100 / 100 Flagyl 500 MG/100 ML 500 100 / 100 100 / 100 100 / 100 mg In 100 ml @ 100 mls/hr IVPB Q8HR ERNESTO Rx#: [id number] KCl 40 MEQ Xylocaine 2 ML 522 / 522 In Dextrose 5% 500 ML @ 130.5 mls/hr IVPB ONCE ONE Rx#:[id number] Output: Urine 400 / 400 1300 / 1300 100 / 100 Other: Stool Size Smear Large Moderate Stool Consistency soft loose loose soft soft Stool Color Brown Brown Brown # Bowel Movements 1 Weight 82.191 kg Patient Weight 11/10/16 23:59 Weight 82.191 kg - General physical appearance well developed, well nourished, no distress - Eyes normal ocular movement - ENT normal mucosa, atraumatic, normocephalic - Neck Neck exam: trachea midline - Respiratory normal respiratory effort, clear to auscultation - Cardiovascular Cardiovascular exam: Present: RRR - Abdomen Abdomen: Present: bowel sounds present, soft, tender (LUQ) - Incision Incision: Present: clean and dry, open (Midline incision opened and packed with mesalt) - Integumentary no rash - Neurologic CN 2-12 grossly intact - Musculoskeletal normal posture - Psychiatric oriented to time, oriented to person, oriented to place, speech is normal, memory intact - Labs 11/08/16 04:18 11/10/16 05:26 Diabetes panel 11/09/16 11/10/16 Range/Units 14:55 05:26 Sodium 139 (136-145) mEq/L Potassium 3.2 L 3.4 L (3.5-4.5) mEq/L Chloride 107 (98-109) mEq/L Carbon Dioxide 25 (19-29) mEq/L BUN 2 L (7-20) mg/dL Creatinine 0.68 (0.57-1.11) mg/dL Glucose 93 (70-99) mg/dL Calcium 8.2 L (8.6-10.8) mg/dL Calcium panel 11/10/16 Range/Units 05:26 Calcium 8.2 L (8.6-10.8) mg/dL Pituitary panel 11/09/16 11/10/16 Range/Units 14:55 05:26 Sodium 139 (136-145) mEq/L Potassium 3.2 L 3.4 L (3.5-4.5) mEq/L Chloride 107 (98-109) mEq/L Carbon Dioxide 25 (19-29) mEq/L BUN 2 L (7-20) mg/dL Creatinine 0.68 (0.57-1.11) mg/dL Glucose 93 (70-99) mg/dL Calcium 8.2 L (8.6-10.8) mg/dL Adrenal panel 11/09/16 11/10/16 Range/Units 14:55 05:26 Sodium 139 (136-145) mEq/L Potassium 3.2 L 3.4 L (3.5-4.5) mEq/L Chloride 107 (98-109) mEq/L Carbon Dioxide 25 (19-29) mEq/L BUN 2 L (7-20) mg/dL Creatinine 0.68 (0.57-1.11) mg/dL Glucose 93 (70-99) mg/dL Calcium 8.2 L (8.6-10.8) mg/dL Consult Discharge Plan - Plan Additional Instructions: surgical wounds, care: Wash with soap and water daily, apply Mesalt ribbon over the open wounds, cover with 4 x 4 gauze and secured with Medipore tape. Change dressings daily. Okay to shower Okay to ride in the car and climb stairs No driving yet Referrals: Traci Hopkins MD [Partnered Physician] - 11/14/16 12:40 pm Alda Arroyo MD [Primary Care Provider] - Prescriptions: Cholestyramine 4 gm PO BIDAC PRN #60 powd.pack PRN Reason: Diarrhea
[2016-11-10] MEDS: Cholestyramine 4 GM POWD.PACK PO SCH ×2 (15:02→16:31)
[2016-11-10] MEDS ORDERED: Potassium Chloride 40 MEQ, Lidocaine 1% 2 ML in D5% in Water 500 ML IVPB ONE (18:08)
[2016-11-10] MEDS ORDERED: Magnesium Sulfate 2 GM in D5% in Water 100 ML IVPB ONE (18:08)
[2016-11-11] MEDS: Ondansetron 4 MG/2 ML VIAL IVP PRN ×3 (04:42→16:17)
[2016-11-11] MEDS: *HR* OxyCODONE/APAP 5/325 TABLET PO PRN (04:42)
[2016-11-11 07:15] LABS: BUN/Creatinine Ratio 3 (6-26); Calcium 8.2 mg/dL (8.6-10.8); Carbon Dioxide 25 mEq/L (19-29); Chloride 105 mEq/L (98-109); Glucose 93 mg/dL (70-99); Magnesium 1.5 mg/dL (1.6-2.6); Osmolality,Calculated 282 (280-300); Potassium 3.3 mEq/L (3.5-4.5); Sodium 138 mEq/L (136-145); eGFR For African Americans > 60 (> 60); eGFR For Non-African Americans > 60 (> 60)
[2016-11-11 07:20] LABS: Blood Urea Nitrogen 2 mg/dL (7-20)
[2016-11-11] MEDS: Cholestyramine 4 GM POWD.PACK PO SCH ×2 (07:32→16:30)
[2016-11-11] MEDS: Acetaminophen 325 MG TABLET PO PRN ×2 (10:39→19:49)
[2016-11-11] MEDS ORDERED: Magnesium Sulfate 2 GM in D5% in Water 100 ML IVPB ONE (12:54)
[2016-11-11] MEDS ORDERED: Potassium Chloride 40 MEQ, Lidocaine 1% 2 ML in D5% in Water 500 ML IVPB ONE (12:54)
--- NOTE | 2016-11-11 16:45 | General Surgery Progress Note ---
Date of Encounter: 11/11/16 Time of Encounter: 08:10 - Assessment and Plan (1) Diarrhea Current Visit: No Status: Resolved Improving. Stool culture negative. Improving with cholestyramine, likely discharge with script for BID prn. Flagyl discontinued 11/10/16 GI recommended outpatient screening colonoscopy. Likely discharge tomorrow. Qualifiers: Diarrhea type: unspecified type Qualified Code(s): R19.7 - Diarrhea, unspecified (2) Nausea & vomiting Current Visit: Yes Status: Resolved Continued nausea; Improved with prn antiemetics Qualifiers: Vomiting type: unspecified Vomiting Intractability: non-intractable Qualified Code(s): R11.2 - Nausea with vomiting, unspecified (3) Abdominal pain Current Visit: Yes Status: Resolved Improving Continue prn pain medication. Qualifiers: Abdominal location: generalized Qualified Code(s): R10.84 - Generalized abdominal pain (4) Hypokalemia Current Visit: No Status: Acute K+ 2.7>2.9>3.2>3.4>3.3 replaced with 40meq today. replace electrolytes as needed recheck in am (5) Abnormal surgical wound Current Visit: Yes Status: Acute Healing very well. Daily wound care: wash areas with soap and water daily, apply mesalt to open areas, cover with 4x4 gauze and tape, change daily. Qualifiers: Encounter type: initial encounter Qualified Code(s): T81.9XXA - Unspecified complication of procedure, initial encounter (6) Hypomagnesemia Current Visit: No Status: Acute Improved, Mg 0.9>1.2>1.4>1.5 Mg replaced today Continue to monitor labs. (7) DVT prophylaxis Current Visit: No Status: Acute Ambulate TID Subjective Patient reports: no new complaints, feels better, tolerating a regular diet ( soft diet), flatus, bowel movement, diarrhea (less frequent), nausea, afebrile Objective Vital Signs - Last 8 Hours Temp Pulse Resp BP Pulse Ox 11/11/16 15:55 98.3 F 68 16 129/76 96 11/11/16 11:35 98.1 F 69 18 123/72 97 Intake and Output 11/11/16 11/11/16 11/11/16 07:59 15:59 23:59 Intake Total 0 / 0 Output Total 400 / 400 0 / 0 Balance -400 / -400 0 / 0 Intake: Oral 0 / 0 Output: Urine 400 / 400 0 / 0 Other: Stool Size Small Stool Consistency soft Stool Color Brown Yellow # Voids 1 # Bowel Movements 1 Weight 82.3 kg Patient Weight 11/11/16 23:59 Weight 82.3 kg - General physical appearance well developed, well nourished, no distress - Eyes normal ocular movement - ENT normal mucosa, atraumatic, normocephalic - Neck Neck exam: trachea midline - Respiratory normal respiratory effort, clear to auscultation - Cardiovascular Cardiovascular exam: Present: RRR - Abdomen Abdomen: Present: bowel sounds present, soft, tender (mildly, less ompared to yesterday's exam) - Incision Incision: Present: clean and dry, open (mesalt laid in open wound) - Integumentary no rash - Neurologic CN 2-12 grossly intact - Musculoskeletal normal posture - Psychiatric oriented to time, oriented to person, oriented to place, speech is normal, memory intact - Labs 11/08/16 04:18 11/11/16 06:50 Diabetes panel 11/11/16 Range/Units 06:50 Sodium 138 (136-145) mEq/L Potassium 3.3 L (3.5-4.5) mEq/L Chloride 105 (98-109) mEq/L Carbon Dioxide 25 (19-29) mEq/L BUN 2 L (7-20) mg/dL Creatinine 0.65 (0.57-1.11) mg/dL Glucose 93 (70-99) mg/dL Calcium 8.2 L (8.6-10.8) mg/dL Calcium panel 11/11/16 Range/Units 06:50 Calcium 8.2 L (8.6-10.8) mg/dL Pituitary panel 11/11/16 Range/Units 06:50 Sodium 138 (136-145) mEq/L Potassium 3.3 L (3.5-4.5) mEq/L Chloride 105 (98-109) mEq/L Carbon Dioxide 25 (19-29) mEq/L BUN 2 L (7-20) mg/dL Creatinine 0.65 (0.57-1.11) mg/dL Glucose 93 (70-99) mg/dL Calcium 8.2 L (8.6-10.8) mg/dL Adrenal panel 11/11/16 Range/Units 06:50 Sodium 138 (136-145) mEq/L Potassium 3.3 L (3.5-4.5) mEq/L Chloride 105 (98-109) mEq/L Carbon Dioxide 25 (19-29) mEq/L BUN 2 L (7-20) mg/dL Creatinine 0.65 (0.57-1.11) mg/dL Glucose 93 (70-99) mg/dL Calcium 8.2 L (8.6-10.8) mg/dL Consult Discharge Plan - Plan Additional Instructions: surgical wounds, care: Wash with soap and water daily, apply Mesalt ribbon over the open wounds, cover with 4 x 4 gauze and secured with Medipore tape. Change dressings daily. Okay to shower Okay to ride in the car and climb stairs No driving yet Referrals: Traci Hopkins MD [Partnered Physician] - 11/14/16 12:40 pm Alda Arroyo MD [Primary Care Provider] - Prescriptions: Cholestyramine 4 gm PO BIDAC PRN #60 powd.pack PRN Reason: Diarrhea
[2016-11-12] MEDS: Acetaminophen 325 MG TABLET PO PRN ×2 (02:13→10:49)
[2016-11-12] MEDS: Ondansetron 4 MG/2 ML VIAL IVP PRN ×2 (02:28→09:58)
[2016-11-12 05:27] LABS: BUN/Creatinine Ratio 4 (6-26); Calcium 8.3 mg/dL (8.6-10.8); Carbon Dioxide 27 mEq/L (19-29); Chloride 105 mEq/L (98-109); Glucose 98 mg/dL (70-99); Magnesium 1.5 mg/dL (1.6-2.6); Osmolality,Calculated 287 (280-300); Potassium 3.5 mEq/L (3.5-4.5); Sodium 140 mEq/L (136-145); eGFR For African Americans > 60 (> 60); eGFR For Non-African Americans > 60 (> 60)
[2016-11-12 05:29] LABS: Blood Urea Nitrogen 3 mg/dL (7-20)
[2016-11-12] MEDS: Cholestyramine 4 GM POWD.PACK PO SCH (08:18)
[2016-11-12 10:52] VITALS: BP 121/71
== END 2016-11-12 15:30 | disposition home health service (06) ==
LOC: EMEROO 11:31 → 3ANU 11:31
PROVIDERS: ADMIT Surgery; ATTEND Surgery